=== PATIENT | female | born 1940 | race Caucasian/White ===

== ENCOUNTER 2017-11-26 09:09 | Emergency (ER) | payer MEDICARE, SELFPAY ==
[2017-11-26 09:11] VITALS: BP 200/111; PULSE 57; RESP 17; TEMP 36.3; O2SAT 96; BMI 31.7
--- NOTE | 2017-11-26 09:23 | EKG12_ITS ---
Test Reason : HYPERTENSION Blood Pressure : / mmHG Vent. Rate : 054 BPM Atrial Rate : 054 BPM P-R Int : 162 ms QRS Dur : 092 ms QT Int : 448 ms P-R-T Axes : 021 -24 018 degrees QTc Int : 424 ms Sinus bradycardia Leftward axis Voltage criteria for left ventricular hypertrophy Poor R wave progression Abnormal ECG Confirmed by BRIAN SOFIA, CLOTILDE ([id number]), publications editor ANTONINO KELLY ([id number]) on 11/29/2017 2:09:02 PM Referred By: ANISA Confirmed By:CLOTILDE TORRES MD
--- NOTE | 2017-11-26 09:26 | ED.DCSUM_ITS ---
- ER Visit Summary Date of Service: 11/26/17 Chief Complaint: [High blood pressure] History of Present Illness: The patient is a 77 F [presents the emergency department with high blood pressure. It started yesterday afternoon. She feels a mild pressure in the front of her head. No dizziness no vision changes no speech changes no numbness or tingling no weakness. No chest pain or shortness of breath. She has been urinating normally. She does have a history of high blood pressure and is on Coreg and lisinopril HCTZ. She is taking both of these medications regularly and did take them this morning. Hypertension is her only medical problem. She has been under increased stress in the last week as her is being placed in a care home. She has had problems controlling her blood pressure in the past and was in the emergency department a few years ago with a nosebleed secondary to her hypertension.] Physical Examination: [] Blood pressure 200/111 heart rate 57 respiratory rate 17 pulse ox 96% WN WD NAD PERRL EOMI MMM NECK supple and nontender, no masses RRR no murmur rub or gallop, no peripheral edema, symmetric radial pulses CTAB no respiratory distress ABDOMEN is soft and nontender, normal bowel sounds, no distension, no rebound or guarding SKIN is warm and dry no rashes Alert and Oriented x3, CN II-XII in tact, no motor or sensory deficits, gait normal NIH 0 No lymphadenopathy Test Results: [] Emergency Department Course and Treatment: [EKG was ordered and screening blood work was ordered as well. Patient was given 10 mg of IV hydralazine. EKG is sinus bradycardia at a rate of 54 she does have LVH. There are no acute ischemic changes. Chemistry was unremarkable. Patient was given 10 mg of hydralazine and her blood pressure did improve down to 157/71. Her headache did not improve and for that reason she was given Tylenol as well as a CT of the head was performed it was unremarkable. After the CT of the head was performed she started complaining of urinary frequency since she has been in the emergency department. Urinalysis was sent and she had 10-25 RBCs but no signs of infection. Urine culture was sent. I did attempt to contact the patient's primary doctor but was unable to. At this point I will slightly increase her blood pressure medicine to lisinopril 20 HCTZ 25 and she will follow-up closely with her primary physician. She was also told that she should follow-up for her hematuria. She was given precautions for which to return.] Treatment Plan: [] Disposition: [Discharge] Impression: [. Hematuria 2. Uncontrolled hypertension] This note was generated with [employer] dictation software. It may contain incorrect words, spelling, and punctuation that were not noted in review of the chart prior to signing ED Disposition - Plan for ED Patient: Chief Complaint: Hypertension Referrals: Alex Burger MD [Primary Care Provider] -
[2017-11-26 10:06] LABS: Anion Gap 6 (5-15); BUN 22 mg/dL (7-18); BUN/Creat Ratio 35.1 RATIO (10-20); Chloride 111 mmol/L (98-107); Creatinine, Serum 0.63 mg/dL (0.55-1.02); EST Glomerular Filtration Rate 99 mL/min (>60); Est Glom Filt Rate - Afr Amer 119 mL/min (>60); Estimated Creatinine Clearance 38.44 ml/min; Glucose 100 mg/dL (74-106); Potassium 4.4 mmol/L (3.5-5.1); Sodium Level 142 mmol/L (136-145)
--- NOTE | 2017-11-26 10:34 | CT_ITS ---
STUDY: CT BRAIN WITHOUT CONTRAST REASON FOR EXAM: Female, 77 years old. Uncontrolled blood pressure today. Headache RADIATION DOSAGE (If Supplied By Facility): CTDIvol = ( 44.99 ) mGy, DLP = ( 745.49 ) mGycm TECHNIQUE: Transaxial CT imaging of the brain was performed without administration of intravenous contrast material. Multiplanar coronal and sagittal images were reformatted. Individualized dose optimization techniques were used for this CT. COMPARISON: None. FINDINGS: Normal soft tissue structures. Normal calvarium. Normal size ventricles and extra-axial spaces for the patient's age. Normal white matter tracts of the cerebral hemispheres. Normal basal ganglia and thalami. Normal brainstem. Normal cerebellum. There is no intracranial hemorrhage. There are no findings of an acute ischemic infarction. Normal visualized paranasal sinuses. CT/Brain/Head without Contrast IMPRESSION: There is no acute intracranial pathology. There is no significant interval change. Electronically Signed: Soo Gallardo MD at 11:25 EST , Service support ,
[2017-11-26] MEDS: Acetaminophen 500 MG Tablet 1000 MG PO (10:41)
[2017-11-26 10:42] VITALS: BP 162/69; PULSE 61; RESP 14; O2SAT 96
[2017-11-26 11:31] VITALS: BP 154/77; PULSE 62; RESP 16; O2SAT 96
[2017-11-26 11:56] LABS: Bacteria 0 SEEN /hpf (None Seen); Mucous, Urine 0 SEEN /hpf (<or=2+)
[2017-11-26 11:57] LABS: Color, Urine Yellow (Yellow); Glucose, Dipstick Normal (Normal); Ketone-Dipstick Negative (Negative); Leukocyte Esterase-Dipstick 25 /ul (Negative); Nitrite-Dipstick Negative (Negative); Occult Blood-Urine 250 /ul (Negative); Protein-Dipstick Negative (Negative); Specific Gravity, Urine 1.005 (1.002-1.030); Urine Bilirubin Dipstick Negative (Negative); Urine Clarity Clear (Clear); Urine Urobilinogen Normal (Normal)
[2017-11-26 12:04] LABS: Red Blood Cells-Urine 10-25 SEEN /hpf (0-5); Squamous Epithelial Cells - UA 0-5 SEEN /hpf (5-10); White Blood Cells 0-5 SEEN /hpf (0-5)
--- NOTE | 2017-11-26 12:28 | ED.DEP ---
ED Disposition - Plan for ED Patient: Chief Complaint: Hypertension Instructions: ED Hypertension Conf Out Of Control, ED Hematuria Prescriptions: Lisinopril/Hydrochlorothiazide [Zestoretic 20/25 Tablet] 1 tablet PO DAILY #30 tablet Referrals: Alex Burger MD [Primary Care Provider] - 2 Days
[2017-11-26 12:40] VITALS: BP 119/59; PULSE 55; RESP 14; O2SAT 95
== END 2017-11-26 12:41 | disposition home or self-care (01) ==
PROVIDERS: Emergency Provider Emergency Medicine; Family Provider Family Medicine; PCP Family Medicine
DX: I10 Essential (primary) hypertension (principal); R31.9 Hematuria, unspecified; R60.9 Edema, unspecified; R00.1 Bradycardia, unspecified; Z79.899 Other long term (current) drug therapy
CPT/HCPCS: 70450; 80048; 81001; 87086; 87088; 87186; 93005; 96374; 99285; A4216

== ENCOUNTER 2017-12-04 00:22 | Emergency (ER) | payer MEDICARE, SELFPAY ==
[2017-12-04 00:23] VITALS: BP 155/92; PULSE 67; RESP 16; TEMP 36.7; O2SAT 96; BMI 31.7
--- NOTE | 2017-12-04 00:34 | EKG12_ITS ---
Test Reason : HTN Blood Pressure : / mmHG Vent. Rate : 059 BPM Atrial Rate : 059 BPM P-R Int : 164 ms QRS Dur : 088 ms QT Int : 448 ms P-R-T Axes : 027 -21 020 degrees QTc Int : 443 ms Sinus bradycardia Voltage criteria for left ventricular hypertrophy Abnormal ECG Confirmed by CARLTON SOFIA, ANDRIA ([id number]), editor department ANTONINO KELLY ([id number]) on 12/06/2017 1:50:38 PM Referred By: BHASKAR Confirmed By:ANDRIA VINCENT MD
--- NOTE | 2017-12-04 00:36 | ED.VISSUMM ---
- ER Visit Summary Date of Service: 12/04/17 Chief Complaint: Elevated blood pressure History of Present Illness: The patient is a 77 F since to the emergency department with elevated blood pressure. Patient has a long-standing history of hypertension. She was actually seen here about 8 days ago for the same complaints. The patient states that she is under a significant amount of stress at home. She states that she is currently trying to place her in an Alzheimer's unit. She states she took her blood pressure before bed and it was 147 systolic which is higher than her normal. She states she woke later and was having some palpitations so she repeated it. It was 177 systolic. She denies headache, vision change, chest pain, shortness of breath, or other systemic symptoms. The patient is very concerned about her blood pressure being slightly elevated. She denies any recent change in medication. She denies any other systemic complaints. Physical Examination: Vital signs reviewed General: Well-nourished, well-developed Head: Normocephalic, atraumatic Eyes: Pupils equal and reactive, extraocular muscles intact Neck, supple, no lymphadenopathy Heart: Regular rate and rhythm Respiratory: No distress, clear bilaterally Abdomen: Soft, nontender, nondistended, no peritoneal signs Back: Nontender Extremities: Nontender, no edema, no cords Skin: Normal color no rash Neuro: Alert and oriented, no focal or lateralizing deficits Test Results: EKG demonstrates sinus bradycardia without acute ischemia. Screening labs are unremarkable. Emergency Department Course and Treatment: Patient is very concerned about her blood pressure. She has no evidence of hypertensive emergency, press syndrome, or other dangerous process. She did have a head CT about a week ago. I did not repeat this given her normal neurologic examination. The patient was given 5 mg of hydralazine. Repeat blood pressure was within normal limits. Her labs are unremarkable. She is symptom-free. At this time I do for the patient is safe for discharge. I did safety counselor her to call her PCP tomorrow to discuss medication regimen. Patient will be discharged home. Treatment Plan: [] Disposition: Discharge Impression: 1. Hypertension This note was generated with [employer]ulse [employer] software. It may contain incorrect words, spelling, and punctuation that were not noted in review of the chart prior to signing ED Disposition - Plan for ED Patient: Disposition: Home or Assisted Living Chief Complaint: Hypertension Instructions: ED HTN Established Referrals: Alex Burger MD [Primary Care Provider] -
[2017-12-04 01:21] LABS: Absolute Lymphocyte Count 1.88 X10^3/ul (0.83-4.51); Absolute Neutrophil Count 3.8 X10^3/uL (2.0-7.7); Basophil# 0.04 X10^3/uL; Basophil% 0.6 % (0-1); Eosinophil# 0.18 X10^3/uL; Eosinophils% 2.8 % (0-5); Hematocrit 42.4 % (37-47); Hemoglobin 14.3 g/dl (12.0-15.0); Lymphocyte # 1.88 X10^3/ul (4.0); Lymphocyte % 28.8 % (19-41); Mean Corp Hgb Conc 33.7 g/gl (32-36); Mean Corpuscular Hgb 31.8 pg (27.0-32.0); Mean Corpuscular Volume 94.2 fL (81-99); Mean Platelet Vol. 10.1 fl (6.2-12.0); Monocyte# 0.62 X10^3/uL; Monocyte% 9.5 % (0-10); Neutrophil # 3.79 X10^3/uL (2.7-7.7); Neutrophil % 58.1 % (47-70); Platelet Count 238 K/mm3 (150-450); RBC Distribution Width CV 13.1 % (11.6-14.6); RBC Distribution Width SD 44.1 fl (35.1-43.9); White Blood Count 6.5 K/mm3 (4.4-11.0)
[2017-12-04 01:22] LABS: POSITIVE COUNT NO; POSITIVE DIFFERENTIAL NO; POSITIVE MORPHOLOGY NO
[2017-12-04 01:35] LABS: Anion Gap 8 (5-15); BUN 35 mg/dL (7-18); BUN/Creat Ratio 48.5 RATIO (10-20); Chloride 109 mmol/L (98-107); Creatinine, Serum 0.72 mg/dL (0.55-1.02); EST Glomerular Filtration Rate 84 mL/min (>60); Est Glom Filt Rate - Afr Amer 101 mL/min (>60); Estimated Creatinine Clearance 38.44 ml/min; Glucose 113 mg/dL (74-106); Potassium 3.6 mmol/L (3.5-5.1); Sodium Level 144 mmol/L (136-145)
[2017-12-04 01:51] VITALS: BP 117/63; PULSE 52; RESP 14; O2SAT 95
[2017-12-04 02:00] VITALS: BP 113/61
== END 2017-12-04 02:00 | disposition home or self-care (01) ==
PROVIDERS: Emergency Provider Emergency Medicine; Family Provider Family Medicine; PCP Family Medicine
DX: I10 Essential (primary) hypertension (principal); R00.1 Bradycardia, unspecified; R00.2 Palpitations; Z79.899 Other long term (current) drug therapy
CPT/HCPCS: 80048; 85025; 93005; 96374; 99282; A4216

== ENCOUNTER → 2017-12-11 10:31 | Outpatient (CLI) | payer MEDICARE, SELFPAY | PROVIDERS: Family Provider Family Medicine; PCP Family Medicine; Visit Provider Family Medicine | DX: R35.0 Frequency of micturition (principal) | CPT/HCPCS: 87086; 87088; 87186 ==

== ENCOUNTER 2018-05-29 09:02 | Emergency (ER) | payer MEDICARE, SELFPAY ==
[2018-05-29 09:03] VITALS: BP 135/80; PULSE 55; RESP 18; TEMP 37; O2SAT 94; BMI 28.3
--- NOTE | 2018-05-29 09:27 | ED.VISSUMM ---
- ER Visit Summary Date of Service: 05/29/18 Chief Complaint: Acute atraumatic left lower back pain with radiculopathy History of Present Illness: The patient is a 78 F who presents because of acute left lower back pain with radiation to the popliteal fossa. She states she has history of sciatica. She has never had an MRI. She denies bowel or bladder dysfunction. She denies saddle paresthesia or anesthesia. She denies foot drop. She has noted weakness in her thigh muscles. She denies fever, chills night sweats. She does report unintentional weight loss. She is had recent loss. . She does report frequency, polyuria and question nocturia. There is family history diabetes. She denies dysuria, hematuria or urgency. Please read written note for complete detail Physical Examination: Vital signs are essentially unremarkable. Blood pressure slightly elevated 135/80. Head is atraumatic normocephalic. Pupils are equal round reactive. Extraocular muscles are intact. TMs are pearly white with landmarks noted. Nares patent with no drainage. Posterior pharynx without erythema or exudate. Uvula is midline. There is no dysphonia or dysphasia. Trachea is midline. There is no stridor with auscultation of the neck. Heart is regular without murmur, gallop or rub. S1 and S2 are normal. Lungs are clear to auscultation with good movement of air bilaterally. Abdomen is soft and nontender. There is no guarding or peritoneal findings. There is no palpable pulsatile mass. There is no abdominal bruit. Tyler sign is negative. Negative Rovsing sign. There is no evidence of inguinal or umbilical hernia. There is no reproducible low back pain. Straight leg test on left is equivocal. Positive femoral stretch test on left. Patellar reflex on right is 2++ minus on left. Ankle reflexes 2+ both right and left. EHL is intact. Crossover test is negative. Test Results: Multilevel degenerative changes, as described above. L1/2: There is a diffuse bulge slightly larger on the left. There is moderate central canal stenosis and [id number] left and mild right neuroforaminal stenosis. L2/3: There is a diffuse bulge slightly larger on the right. There is moderate central canal stenosis and moderate left worse than right neuroforaminal stenosis. L3/4: There is a diffuse bulge. There is moderate central canal stenosis and jnim-[id number] bilateral neuroforaminal stenosis. L4/5: There is a diffuse bulge. There is moderate central canal stenosis and bwpq-aw-[id number] left and mild right neuroforaminal stenosis. L5/S1: There is a diffuse bulge. There is mild right worse than left neuroforaminal stenosis. There is a 2.3 cm infrarenal aortic aneurysm. Emergency Department Course and Treatment: MRI was ordered to evaluate the new onset weakness of the quadricep muscle, diminished patellar reflex noted on left. Furthermore concern for L3/L4 herniated disc and she has a positive femoral stretch test as well. She was medicated with Ativan because she reports being claustrophobic. She is not severely claustrophobic. She also received formal grams of Zofran 4 mg of morphine for her back pain. Treatment Plan: UA was negative. Patient was referred to Dr. Natasha Li, spine surgeon Disposition: Discharged home with pain medication Impression: 1. Left low back pain with sciatica 2. Moderate spinal stenosis 3. Disc bulge multilevel and foramen narrowing multiple levels This note was generated with [employer] dictation software. It may contain incorrect words, spelling, and punctuation that were not noted in review of the chart prior to signing ED Disposition - Plan for ED Patient: Disposition: Home or Assisted Living Chief Complaint: Back Instructions: ED Neck Back Pain General, ED Sciatica Prescriptions: Hydrocodone Bitart/Apap 5-325 [[place] 5MG-325MG] 1 tablet PO Q6H PRN PRN 5 Days #20 tablet PRN Reason: Pain Referrals: Alex Burger MD [Primary Care Provider] - 1 Week if not improving Natasha Li MD [STAFF PHYSICIAN] - 1 Week Additional Instructions: Your prescription was electronically transmitted to [facility] pharmacy; your preferred pharmacy.
[2018-05-29] MEDS: LORazepam 2 MG/ML Syringe 1 MG IV (09:33)
[2018-05-29] MEDS: Morphine 4 MG/ML Syringe IV (09:34)
[2018-05-29] MEDS: Ondansetron 4 MG/2 ML Vial IV (09:34)
[2018-05-29 09:35] LABS: Bedside Glucose 118 mg/dL (70-110)
[2018-05-29 11:44] LABS: Bacteria 0 SEEN /hpf (None Seen); Mucous, Urine 0 SEEN /hpf (<or=2+); Red Blood Cells-Urine 0 SEEN /hpf (0-5)
[2018-05-29 11:46] LABS: Color, Urine Yellow (Yellow); Glucose, Dipstick Normal (Normal); Ketone-Dipstick Negative (Negative); Leukocyte Esterase-Dipstick 100 /ul (Negative); Nitrite-Dipstick Negative (Negative); Occult Blood-Urine 25 /ul (Negative); Protein-Dipstick 15 mg/dl (Negative); Urine Bilirubin Dipstick Negative (Negative); Urine Clarity Clear (Clear); Urine Urobilinogen Normal (Normal)
[2018-05-29 11:53] LABS: Squamous Epithelial Cells - UA 0-5 SEEN /hpf (5-10); White Blood Cells 0-5 SEEN /hpf (0-5)
[2018-05-29 12:21] VITALS: BP 117/85; RESP 18
== END 2018-05-29 12:22 | disposition home or self-care (01) ==
PROVIDERS: Emergency Provider Emergency Medicine; Family Provider Family Medicine; PCP Family Medicine
DX: M54.42 Lumbago with sciatica, left side (principal); M48.061 Spinal stenosis, lumbar region without neurogenic claudication; I72.2 Aneurysm of renal artery; I10 Essential (primary) hypertension; R35.0 Frequency of micturition; R35.8 Other polyuria; R63.4 Abnormal weight loss; F40.240 Claustrophobia; Z79.899 Other long term (current) drug therapy
CPT/HCPCS: 72148; 81001; 82962; 96374; 96375; 99283; A4216; J2405

== ENCOUNTER 2018-06-16 06:14 | Emergency (ER) | payer MEDICARE, SELFPAY ==
[2018-06-16 06:15] VITALS: BP 135/72; PULSE 66; RESP 18; TEMP 36.9; O2SAT 95; BMI 29.7
[2018-06-16 07:05] LABS: Mucous, Urine 0 SEEN /hpf (<or=2+); Red Blood Cells-Urine 0 SEEN /hpf (0-5); Squamous Epithelial Cells - UA 0 SEEN /hpf (5-10)
[2018-06-16 07:09] LABS: Absolute Neutrophil Count 7.1 X10^3/uL (2.0-7.7); Basophil# 0.03 X10^3/uL; Basophil% 0.3 % (0-1); Eosinophils% 1.1 % (0-5); Hematocrit 43.3 % (37-47); Hemoglobin 14.7 g/dl (12.0-15.0); Lymphocyte % 13.5 % (19-41); Mean Corp Hgb Conc 33.9 g/gl (32-36); Mean Corpuscular Hgb 31.4 pg (27.0-32.0); Mean Corpuscular Volume 92.5 fL (81-99); Mean Platelet Vol. 9.6 fl (6.2-12.0); Monocyte# 0.46 X10^3/uL; Monocyte% 5.2 % (0-10); Neutrophil # 7.07 X10^3/uL (2.7-7.7); Neutrophil % 79.8 % (47-70); Platelet Count 260 K/mm3 (150-450); RBC Distribution Width CV 13.2 % (11.6-14.6); Red Blood Count 4.68 M/mm3 (4.2-5.4); White Blood Count 8.9 K/mm3 (4.4-11.0)
[2018-06-16 07:10] LABS: POSITIVE COUNT NO; POSITIVE DIFFERENTIAL NO; POSITIVE MORPHOLOGY NO
[2018-06-16 07:13] LABS: Color, Urine Yellow (Yellow); Glucose, Dipstick Normal (Normal); Ketone-Dipstick Negative (Negative); Protein-Dipstick 15 mg/dl (Negative); Urine Bilirubin Dipstick Negative (Negative); Urine Clarity Clear (Clear); Urine Urobilinogen Normal (Normal)
[2018-06-16 07:14] LABS: Leukocyte Esterase-Dipstick 100 /ul (Negative); Nitrite-Dipstick POSITIVE (Negative); Occult Blood-Urine 150 /ul (Negative)
[2018-06-16 07:15] LABS: Bacteria 2+ /hpf (None Seen); White Blood Cells 0-5 SEEN /hpf (0-5)
[2018-06-16 07:24] LABS: Anion Gap 7 (5-15); BUN 30 mg/dL (7-18); BUN/Creat Ratio 40.7 RATIO (10-20); Chloride 109 mmol/L (98-107); Creatinine, Serum 0.74 mg/dL (0.55-1.02); EST Glomerular Filtration Rate 81 mL/min (>60); Est Glom Filt Rate - Afr Amer 99 mL/min (>60); Estimated Creatinine Clearance 37.85 ml/min; Glucose 120 mg/dL (74-106); Potassium 3.8 mmol/L (3.5-5.1); Sodium Level 143 mmol/L (136-145)
--- NOTE | 2018-06-16 07:54 | ED.VISSUMM ---
- ER Visit Summary Date of Service: 06/16/18 Chief Complaint: Abdominal pain History of Present Illness: The patient is a 78 F presenting with abdominal pain. She states it started last night. Pain is gradual in onset. It is mostly in the left lower quadrant. She is currently on Percocet for history of back pain. She has history of previous constipation. History of previous small bowel obstruction. She has had an appendectomy, cholecystectomy. She denies fever. Denies nausea or vomiting. Denies urinary complaints. Physical Examination: Vitals are stable. Patient is afebrile. Alert no acute distress. HEENT exam is unremarkable. Neck is supple. Lungs are clear and equal bilaterally. Heart is regular rate and rhythm. Abdomen is soft left lower quadrant tenderness, no rebound or guarding Extremities are unremarkable. Skin is warm and dry. Remainder of exam is unremarkable. Emergency Department Course and Treatment: CBC, chemistries unremarkable. CT abdomen and pelvis will be obtained and checked out to daytime physician. Disposition: Pending CT results Impression: Abdominal pain This note was generated with [employer] dictation software. It may contain incorrect words, spelling, and punctuation that were not noted in review of the chart prior to signing ED Disposition - Plan for ED Patient: Chief Complaint: Abd Pain Referrals: Alex Burger MD [Primary Care Provider] -
[2018-06-16 08:29] VITALS: BP 171/87; PULSE 69; RESP 18; O2SAT 96
--- NOTE | 2018-06-16 10:00 | ED.DEP ---
ED Disposition - Plan for ED Patient: Chief Complaint: Abd Pain Instructions: ED Abdominal Pain Unkn Cause Referrals: Alex Burger MD [Primary Care Provider] -
[2018-06-16 10:09] VITALS: BP 142/60; PULSE 64; RESP 12; O2SAT 95
== END 2018-06-16 10:09 | disposition home or self-care (01) ==
PROVIDERS: Emergency Provider Emergency Medicine; Family Provider Family Medicine; PCP Family Medicine
DX: R10.32 Left lower quadrant pain (principal); M54.9 Dorsalgia, unspecified; I10 Essential (primary) hypertension; Z79.899 Other long term (current) drug therapy; Z90.49 Acquired absence of other specified parts of digestive tract
CPT/HCPCS: 74177; 80048; 81001; 85025; 87077; 87086; 87088; 87186; 96360; 96361; 99282; J7040; Q9967; A4216

== ENCOUNTER 2018-07-03 15:00 | Outpatient (RCR) | payer MEDICARE, SELFPAY ==
--- NOTE | 2018-06-14 12:08 | HP.PTEVAL_ITS ---
Patient's Visit Information H GUANACO BALDERAS is a 78 year old F referred to Physical Therapy by Alex Burger with a diagnosis of LUMABR STENOSIS. Date of Evaluation: 06/14/18 Physical Therapist: Lukas Caceres PT, - Visit Plan Frequency: 2x /Week Duration: 4 Weeks Plan: modalities pain releive ,progression DLS ,postural ex's - Subjective Subjective: This 78 y/o female presenst to physical therapy with lumbar stenosis. Patient has had lumbar pain with radicular symtoms for about 30 years sith symptoms gradually worsening past 2 1/2 weeks. Patient symtrically lumbar radiates buttuck hams calf foot. Seen Dr baltazar MRI showed mod stenosis canal and foraminal. Symptoms standing 10 mins ,walking ,bending,lifting.Symptoms better with sitting. Pain affects sleeping. Couging/neezing-. Bowel/bladder good. Dr Santos rcommended pain management and DR Ramirez for spine consult.Patient pain affects ADL'S ,housework chores and QOL. SOCAIL: . VOCATION: RETIRED - Pain Bilateral Back Pain Intensity (Out of 10): 5 Pain Intensity Range: 10 Left Lower Extremity Pain Intensity (Out of 10): 5 Pain Intensity Range: 10 - Objective POSTURE: mild foward posture hips/knees flexed. SYYMTRIES : pelvis assymtrical. GAIT: mild foward posture antalgic gait left side reciprocal pattern. NEURO: denies parathesia/tingling,ocassionally left foot,reflexes L3-4 ,L4-5,L5-S1 1/3. LUMBAR ROM: flexion min loss,extension mod loss,side glides min decrease curve reversal. FLEXABLITTY: hams min - Special Tests L/S Slump test left side: Negative L/S Slump test right side: Negative L/S Left Straight Leg Raise: Negative L/S Right Straight Leg Raise: Negative Lumbar Standing: Flexion - Mechanical Response: No effect Lumbar Standing: Flexion - Symptoms During Testing: Decreases Lumbar Standing: Flexion - Symptoms After Testing: No better Lumbar Standing: Extension - Mechanical Response: No effect Lumbar Standing: Extension - Symptoms During Testing: No effect Lumbar Standing: Extension - Symptoms After Testing: No effect - Goals Goal 1:: Patient to be Independant with HEP. Goal Time Frame: 4-6 Weeks Goal 2:: Patient to be Independant with posture for ADL'S Goal Time Frame: 4-6 Weeks Goal 3:: Patient to decrease lumbar pain with radicular symptoms with walking and standing Goal Time Frame: 4-6 Weeks Goal 4:: Patient be able to perform ADL'S and housework tasks with min limitations Goal Time Frame: 4-6 Weeks Goal 5:: Patient to improve back owestry by 5 points to improve QOL. Goal Time Frame: 4-6 Weeks - Rehabilitation Potential Physical Therapy Diagnosis: This patient has lumbar stenosis with pain and left radicular symptoms worse with walking ,standing affecting ADL'S and housework tasks ,better with sitting thus benifit from skilled PT Rehabilitation Potential: Good - Anticipated Interventions Patient/Client Instruction: Educate patient on: Condition, Plan of Care, Benefits of Fitness Program For the Purpose of:: To decrease pain, To increase ROM, To improve muscle performance and motor function, To improve ability to perform ADL's, To increase tolerance to activity/condition/position, To improve ability of physical actions for home/community/work/leisure, To improve health of tissue, To decrease soft tissue restriction, To reduce risk of recurrence, To improve ability to perform tasks related to life management Therapeutic Exercise to Include: Strength training, Body mechanics, Postural training, Flexibilty training, Dynamic Lumbar Stabilization Comment: flexion lumbar For the Purpose of:: To decrease pain, To increase ROM, To increase oxygenation perfusion, To increase tolerance to activity/condition/position, To improve ability of physical actions for home/community/work/leisure, To improve health of tissue, To decrease soft tissue restriction, To improve ability to perform tasks related to life management TENS: Yes IF ES: Yes Cryotherapy (ice pack, ice massage): Yes Thermo therapy (hot pack): Yes Ultrasound (thermal/non thermal): Yes For the Purpose of:: To decrease pain, To decrease swelling/inflammation, To increase ROM, To improve nutrient delivery to tissue, To increase oxygenation perfusion, To improve health of tissue, To decrease soft tissue restriction Thank you for the opportunity to evaluate your patient. For Medicare and Medicare HMO plans, please review the plan of care and approve it. It will need to be FAXED BACK to us at [phone] for Medicare purposes. Please let me know if there are questions or concerns regarding this plan of care. Physician Signature: Date:
--- NOTE | 2018-10-26 12:19 | HP.PT.NRP ---
HP - Discharge Summary (1) - Patient Information H GUANACO BALDERAS was seen in my office for initial evaluation on 06/14/18. The following Plan of Care was established for this patient: Initial Frequency: 2x /Week Initial Duration: 4 Weeks - Anticipated Interventions Patient/Client Instruction: Educate patient on: Condition, Plan of Care, Benefits of Fitness Program For the Purpose of:: To decrease pain, To increase ROM, To improve muscle performance and motor function, To improve ability to perform ADL's, To increase tolerance to activity/condition/position, To improve ability of physical actions for home/community/work/leisure, To improve health of tissue, To decrease soft tissue restriction, To reduce risk of recurrence, To improve ability to perform tasks related to life management Therapeutic Exercise to Include: Strength training, Body mechanics, Postural training, Flexibilty training, Dynamic Lumbar Stabilization For the Purpose of:: To decrease pain, To increase ROM, To increase oxygenation perfusion, To increase tolerance to activity/condition/position, To improve ability of physical actions for home/community/work/leisure, To improve health of tissue, To decrease soft tissue restriction, To improve ability to perform tasks related to life management TENS: Yes IF ES: Yes Cryotherapy (ice pack, ice massage): Yes Thermo therapy (hot pack): Yes Ultrasound (thermal/non thermal): Yes For the Purpose of:: To decrease pain, To decrease swelling/inflammation, To increase ROM, To improve nutrient delivery to tissue, To increase oxygenation perfusion, To improve health of tissue, To decrease soft tissue restriction This patient was last seen in our office 07/03/18. Pertinent comments regarding their Physical therapy will appear below: Patient seen for PT for lumbar stenosis focusing on DLS ,posture and strengthening. Patient doing with HEP thus is d/c. At this point I will be discontinuing this patient from physical therapy. I would be happy to see this patient again in the future if found appropriate by the physician. Thank you! Luksa Caceres, PT, Cert MDT, OCS
== END 2018-07-03 19:00 | disposition home or self-care (01) ==
LOC: PT 15:00
PROVIDERS: Family Provider Family Medicine; PCP Family Medicine; Visit Provider Family Medicine
DX: M48.061 Spinal stenosis, lumbar region without neurogenic claudication (principal)
CPT/HCPCS: 97110; 97162

== ENCOUNTER → 2019-07-18 08:14 | Outpatient (CLI) | payer MEDICARE, SELFPAY ==
[2019-07-18 11:24] LABS: Anion Gap 6 (5-15); BUN 32 mg/dL (7-18); Chloride 113 mmol/L (98-107); Cholesterol 171 mg/dL (200); Creatinine, Serum 0.91 mg/dL (0.55-1.02); EST Glomerular Filtration Rate 63 mL/min (>60); Est Glom Filt Rate - Afr Amer 77 mL/min (>60); Glucose 91 mg/dL (74-106); High Density Lipoprotein 51 mg/dL; Potassium 3.8 mmol/L (3.5-5.1); Sodium Level 144 mmol/L (136-145); Triglycerides 113 mg/dL; Very Low Density Lipoprotein 23 mg/dL (5-40)
== END ==
PROVIDERS: Family Provider Family Medicine; PCP Family Medicine; Referring Provider Family Medicine; Visit Provider Family Medicine
DX: I10 Essential (primary) hypertension (principal); E78.5 Hyperlipidemia, unspecified
CPT/HCPCS: 36415; 80048; 80061

== ENCOUNTER → 2020-10-26 13:12 | Outpatient (CLI) | payer MEDICARE, SELFPAY ==
--- NOTE | 2020-10-26 13:17 | RAD_ITS ---
STUDY: X-RAY - THORACIC SPINE REASON FOR EXAM: Female, 80 years old. Lower back pain. TECHNIQUE: 3 view(s) of the thoracic spine were obtained. COMPARISON: None. FINDINGS: Normal kyphosis of the thoracic spine. There is no substantial scoliosis. There is demineralization of the thoracic spine with endplate spondylosis. There is multilevel disc space narrowing of the thoracic spine. There is no evidence of acute fracture or loss of vertebral axial height. The soft tissue structures are unremarkable. RAD/Thoracic Spine 2 Views IMPRESSION: Degenerative changes of the thoracic spine without acute fracture or subluxation. Electronically Signed: Casey Chambers DO at 19:24 EST Tel [phone], Service support ,
--- NOTE | 2020-10-26 13:17 | RAD_ITS ---
STUDY: X-RAY - LUMBAR SPINE REASON FOR EXAM: Female, 80 years old. Lower back pain. TECHNIQUE: 3 view(s) of the lumbar spine were obtained. COMPARISON: CT of the abdomen and pelvis, 06/16/2018. FINDINGS: Normal lumbar lordosis. There is no substantial scoliosis. There is a normal alignment of the vertebrae. There is multilevel endplate spondylosis of the lumbar vertebrae. There is multi-level degenerative disc disease with multi-level disc space narrowing. The soft tissue structures are unremarkable. RAD/Lumbar Spine 2 or 3 Views IMPRESSION: Stable degenerative changes of the lumbar spine. Electronically Signed: Casey Chambers DO at 17:00 EST Tel [phone], Service support ,
== END ==
PROVIDERS: PCP Family Medicine; Referring Provider Anesthesiology Pain Medicine; Visit Provider Anesthesiology Pain Medicine
DX: M54.9 Dorsalgia, unspecified (principal)
CPT/HCPCS: 72070; 72100

== ENCOUNTER 2021-08-06 19:35 | Emergency (ER) | payer MEDICARE, SELFPAY ==
[2021-08-06 19:36] VITALS: BP 102/55; PULSE 60; RESP 18; TEMP 36.8; O2SAT 95; BMI 31.6
--- NOTE | 2021-08-06 20:24 | RAD_ITS ---
STUDY: X-RAY CHEST REASON FOR EXAM: Female, 81 years old. Syncope. Syncopal episode and loss of consciousness for 2 minutes. Heart rate and 40 bpm on arrival to ER. Dizziness and nausea. TECHNIQUE: Single AP portable view of the chest. COMPARISON: None. FINDINGS: The lungs are clear and expanded. There is no demonstrated pleural abnormality. Normal size heart. Normal mediastinum and kathi. Normal visualized pulmonary arteries. Normal visualized aortic arch and descending thoracic aorta. There are diffuse degenerative changes of the visualized thoracic spine. Normal visualized ribs, clavicles, and shoulders. There is no demonstrated abnormality of the visualized soft tissue structures of the upper abdomen. RAD/Chest 1 View (Portable) IMPRESSION: Degenerative changes, as described above. No demonstrated acute cardiopulmonary process. Electronically Signed: Casey Chambers DO at 21:16 EDT Tel [phone], Service support ,
--- NOTE | 2021-08-06 20:24 | EKG12_ITS ---
Test Reason : SONI Blood Pressure : / mmHG Vent. Rate : 056 BPM Atrial Rate : 056 BPM P-R Int : 170 ms QRS Dur : 096 ms QT Int : 456 ms P-R-T Axes : 035 -14 016 degrees QTc Int : 440 ms Sinus bradycardia Voltage criteria for left ventricular hypertrophy Abnormal ECG Confirmed by BRIAN SOFIA, CLOTILDE ([id number]), editorial project manager JOSELO SANFORD ([id number]) on 08/10/2021 9:20:56 AM Referred By: CIERRA Confirmed By:CLOTILDE TORRES MD
[2021-08-06 20:27] VITALS: BP 102/61; BP 115/53; BP 135/66; PULSE 58; PULSE 60; PULSE 63
[2021-08-06 20:42] LABS: Absolute Lymphocyte Count 0.86 X10^3/uL (0.83-4.51); Absolute Neutrophil Count 4.8 X10^3/uL (2.0-7.7); Basophil# 0.03 X10^3/uL; Basophil% 0.5 % (0-1); Eosinophil# 0.13 X10^3/uL; Eosinophils% 2.1 % (0-5); Hematocrit 42.7 % (37-47); Hemoglobin 13.6 g/dL (12.0-15.0); Lymphocyte # 0.86 X10^3/ul (0.83-4.51); Lymphocyte % 13.6 % (19-41); Mean Corp Hgb Conc 31.9 g/dL (32-36); Mean Corpuscular Hgb 30.2 pg (27.0-32.0); Mean Corpuscular Volume 94.7 fL (81-99); Mean Platelet Vol. 9.8 fl (6.2-12.0); Monocyte# 0.47 X10^3/uL; Monocyte% 7.4 % (0-10); NRBC Flagged by Analyzer 0 % (0-5); Neutrophil # 4.81 X10^3/uL (2.7-7.7); Neutrophil % 75.9 % (47-70); Platelet Count 237 K/mm3 (150-450); RBC Distribution Width SD 45.1 fl (35.1-43.9); Red Blood Count 4.51 M/mm3 (4.2-5.4); White Blood Count 6.3 K/mm3 (4.4-11.0)
[2021-08-06 20:59] LABS: Anion Gap 8 (5-15); BUN 29 mg/dL (7-18); BUN/Creat Ratio 28.2 RATIO (10-20); Calcium,Total 9.2 mg/dL (8.5-10.1); Chloride 107 mmol/L (98-107); Creatinine, Serum 1.03 mg/dL (0.55-1.02); EST Glomerular Filtration Rate 55 mL/min (>60); Est Glom Filt Rate - Afr Amer 66 mL/min (>60); Estimated Creatinine Clearance 35.03 ml/min; Glucose 141 mg/dL (74-106); Magnesium 1.9 mg/dL (1.6-2.6); Potassium 3.7 mmol/L (3.5-5.1); Sodium Level 142 mmol/L (136-145); Troponin-I HS 6 pg/mL (3.0-54.0)
[2021-08-06] MEDS: 0.9% Normal Saline 1,000 ML 999 ML IV (21:00)
[2021-08-06 21:14] VITALS: BP 120/60; PULSE 59; RESP 15; O2SAT 96
[2021-08-06 22:33] VITALS: BP 127/53; PULSE 58
--- NOTE | 2021-08-06 22:44 | EDS_ITS ---
HPI History of Present Illness Chief Complaint: Syncope Narrative Narrative: Patient is a 81-year-old female with hypertension who states she was sitting in a chair with family this evening. She states she began to feel weird and then had a brief episode of syncope. Patient states that she awoke spontaneously and knew who she was and where she was at and there was no reported seizure activity. She states she feels fine at this time but with the syncopal event was sent in for evaluation. [facility] Medical History High cholesterol HTN (hypertension) Home Medications carvedilol 12.5 mg PO BID 04/11/17 [History Last Taken 05/29/18] lisinopril-hydrochlorothiazide [Zestoretic 20-12.5 mg Tablet] 1 ea PO DAILY 04/11/17 [History Last Taken 05/29/18] rosuvastatin [Crestor] 5 mg PO QHS 11/26/17 [History Last Taken 05/28/18] zolpidem 5 mg PO QHS PRN PRN 05/29/18 [History Last Taken 05/28/18] oxybutynin chloride 5 mg PO DAILY 08/06/21 [History Last Taken Unknown] Allergy/AdvReac Type Severity Reaction Status Date / Time No Known Allergies Allergy Verified 08/06/21 19:38 Social History Smoking Status: Never smoker ROS ROS ED Constitutional Constitutional ED: Denies chills or fever(s) ENT ENT ED: Denies sore throat Cardiovascular Cardiovascular: Reports other Details: Positive syncope ; Denies chest pain Respiratory/Chest Respiratory/Chest: Denies cough or dyspnea Gastrointestinal Gastrointestinal: Reports nausea; Denies abdominal pain, diarrhea or vomiting Genitourinary Genitourinary ED: Denies dysuria Musculoskeletal Musculoskeletal: Denies myalgias Integumentary Denies rash Neurologic Neurologic: Denies headache(s) Hematologic/Lymphatic Hematologic/Lymphatic: Denies easy bleeding or easy bruising EXAM Physical Exam Const Vital Signs: 08/06/21 19:36 08/06/21 19:40 08/06/21 20:27 Temperature 98.2 F Temperature Source Oral Pulse Rate 60 Pulse Rate [Lying] 58 L Pulse Rate [Sitting] 60 Pulse Rate [Standing] 63 Respiratory Rate 18 Respiratory Effort Normal Non-Labored Respiratory Pattern Normal Blood Pressure 102/55 L Blood Pressure [Lying] 115/53 L Blood Pressure [Sitting] 135/66 H Blood Pressure [Standing] 102/61 Blood Pressure Mean 70 Blood Pressure Mean [Lying] 73 Blood Pressure Mean [Sitting] 89 Blood Pressure Mean [Standing] 74 Pulse Ox 95 Oxygen Delivery Method Room Air 08/06/21 21:14 08/06/21 22:33 Temperature Temperature Source Pulse Rate 59 L 58 L Pulse Rate [Lying] Pulse Rate [Sitting] Pulse Rate [Standing] Respiratory Rate 15 Respiratory Effort Respiratory Pattern Blood Pressure 120/60 127/53 H Blood Pressure [Lying] Blood Pressure [Sitting] Blood Pressure [Standing] Blood Pressure Mean 80 77 Blood Pressure Mean [Lying] Blood Pressure Mean [Sitting] Blood Pressure Mean [Standing] Pulse Ox 96 Oxygen Delivery Method Room Air Positive well nourished and well developed General Appearance ED: well developed HEENT Reports dry mucous membranes HEENT Narrative: No signs of depressed or basilar skull fracture Mouth ED: Yes dry mucous membranes Mouth: dry mucous membranes Eyes PERRL and EOMs intact bilaterally Neck supple Neck Narrative: No bony deformity or step-off of the cervical spine no midline pain with palpation Chest Wall palpation of chest normal Resp normal respiratory effort and clear to auscultation bilaterally Cardio regular rate and regular rhythm Rate: other Other Details: Radial pulses are plus 2 out of 4 bilaterally they are equal and symmetric GI normal to inspection, nondistended, normoactive bowel sounds, non-tender and non-distended Auscultation: normoactive bowel sounds Palpation: soft Back/Spine Back/Spine Narrative: No bony deformity or step-off of the thoracic or lumbar spine Extremity normal to inspection Extremity Narrative: Pelvis is stable there is no shortening or external rotation of either lower extremity Neuro oriented x3 and CN's II-XII intact bilaterally Neuro Narrative: No pronator drift no dysmetria no truncal ataxia Sensorium / Orientation: alert Motor Exam: strength 5/5 throughout Psych mental status grossly normal Skin no rashes or lesions noted MDM MDM MDM Narrative Medical decision making narrative: Patient presented to the ER awake and alert with a normal neurologic exam and no focal findings. Her history of syncope is concerning for most likely cause orthostasis and therefore basic work-up was obtained. Blood work revealed no clinically significant findings and chest x- ray revealed no acute lung pathology. Patient's orthostatic vital signs were positive and she was given 1 L of fluid. Following this she was able to walk to the bathroom without any symptoms indicating that her hydration status is now resolved and I feel she is safe for discharge. Lab Data Attestation: I reviewed the patient's lab results. Labs: Laboratory Results - last 24 hr 08/06/21 08/06/21 19:39 19:39 WBC 6.3 RBC 4.51 Hgb 13.6 Hct 42.7 MCV 94.7 MCH 30.2 MCHC 31.9 L RDW Std Deviation 45.1 H RDW Coeff of Dimitri 13.0 Plt Count 237 MPV 9.8 Immature Gran % (Auto) 0.500 Neut % (Auto) 75.9 H Lymph % (Auto) 13.6 L [place] % (Auto) 7.4 Eos % (Auto) 2.1 Baso % (Auto) 0.5 Absolute Neuts (auto) 4.8 Absolute Lymphs (auto) 0.86 Nucleated RBC % 0 Sodium 142 Potassium 3.7 Chloride 107 Carbon Dioxide 27.0 Anion Gap 8 BUN 29 H Creatinine 1.03 H Estim Creat Clear Calc 35.03 Est GFR (MDRD) Af Amer 66 Est GFR (MDRD) Non-Af 55 L BUN/Creatinine Ratio 28.2 H Glucose 141 H Calcium 9.2 Magnesium 1.9 Troponin I High Sens 6 Radiography Diagnostic Testing: Clinical Impression(s) from Imaging Studies Chest X-Ray 08/06/21 20:24 IMPRESSION: Degenerative changes, as described above. No demonstrated acute cardiopulmonary process. Electronically Signed: Casey Chambers at 21:16 EDT Tel [phone], Service support , Discharge Plan Triage Chief Complaint: Syncope ED Provider: William Parks Dx/Rx/DC Orders Clinical Impression: Syncope due to orthostatic hypotension Instructions: ED Hypotension, Orthostatic, ED Dizziness or Syncope ... Prescriptions: No Action carvedilol 12.5 MG tablet 12.5 mg PO BID RF: 0 lisinopril-hydrochlorothiazide [Zestoretic] 1 EACH tablet 1 ea PO DAILY RF: 0 rosuvastatin [Crestor] 5 MG tablet 5 mg PO QHS RF: 0 zolpidem 5 MG tablet 5 mg PO QHS PRN PRN (Reason: Sleep) RF: 0 oxybutynin chloride 5 mg Tablet Extended Release 24hr 5 mg PO DAILY RF: 0 Primary Care Provider: Alex Burger Referrals: Alex Burger MD [Primary Care Provider] - Disposition Disposition: Home, Self Care Discharge Date/Time: 08/06/21 23:03
== END 2021-08-06 23:03 | disposition home or self-care (01) ==
PROVIDERS: Emergency Provider Emergency Medicine; PCP Family Medicine
DX: I95.1 Orthostatic hypotension (principal); I10 Essential (primary) hypertension; E78.00 Pure hypercholesterolemia, unspecified; Z79.899 Other long term (current) drug therapy
CPT/HCPCS: 71045; 80048; 83735; 84484; 85025; 93005; 96360; 99285; A4216

== ENCOUNTER → 2021-08-25 08:37 | Outpatient (CLI) | payer MEDICARE, SELFPAY ==
[2021-08-25 10:28] LABS: Anion Gap 4 (5-15); BUN 21 mg/dL (7-18); BUN/Creat Ratio 25.4 RATIO (10-20); Calcium,Total 9.1 mg/dL (8.5-10.1); Chloride 109 mmol/L (98-107); Cholesterol 170 mg/dL (200); Creatinine, Serum 0.83 mg/dL (0.55-1.02); EST Glomerular Filtration Rate 71 mL/min (>60); Est Glom Filt Rate - Afr Amer 85 mL/min (>60); Glucose 105 mg/dL (74-106); High Density Lipoprotein 37 mg/dL; Potassium 3.9 mmol/L (3.5-5.1); Sodium Level 140 mmol/L (136-145); Triglycerides 254 mg/dL; Very Low Density Lipoprotein 51 mg/dL (5-40)
== END ==
PROVIDERS: PCP Family Medicine; Referring Provider Family Medicine; Visit Provider Family Medicine
DX: I10 Essential (primary) hypertension (principal)
CPT/HCPCS: 36415; 80048; 80061

== ENCOUNTER → 2022-06-02 | Outpatient (CLI) | payer MEDICARE, SELFPAY | END | disposition home or self-care (01) | PROVIDERS: PCP Family Medicine; Visit Provider Family Medicine | DX: R35.0 Frequency of micturition (principal) | CPT/HCPCS: 87077; 87086; 87088; 87186 ==

== ENCOUNTER → 2022-06-28 | Outpatient (CLI) | payer MEDICARE, SELFPAY | END | disposition home or self-care (01) | PROVIDERS: PCP Family Medicine; Visit Provider Family Medicine | DX: R35.0 Frequency of micturition (principal) | CPT/HCPCS: 87086; 87088; 87186 ==

== ENCOUNTER → 2022-11-01 | Outpatient (CLI) | payer MEDICARE, SELFPAY | END | disposition home or self-care (01) | LOC: LABSPEC 15:16 | PROVIDERS: PCP Family Medicine; Visit Provider Family Medicine | DX: R35.0 Frequency of micturition (principal) | CPT/HCPCS: 87086; 87088 ==

== ENCOUNTER → 2022-11-15 | Outpatient (CLI) | payer MEDICARE, SELFPAY ==
[2022-11-15 10:04] LABS: Absolute Lymphocyte Count 1.44 X10^3/uL (0.83-4.51); Basophil# 0.06 X10^3/uL; Basophil% 1.2 % (0-1); Eosinophil# 0.18 X10^3/uL; Eosinophils% 3.5 % (0-5); Hematocrit 43.7 % (37-47); Hemoglobin 14.3 g/dL (12.0-15.0); Lymphocyte # 1.44 X10^3/ul (0.83-4.51); Mean Corp Hgb Conc 32.7 g/dL (32-36); Mean Corpuscular Volume 94.6 fL (81-99); Mean Platelet Vol. 9.9 fl (6.2-12.0); Monocyte# 0.44 X10^3/uL; Monocyte% 8.6 % (0-10); NRBC Flagged by Analyzer 0 % (0-5); Neutrophil # 3.01 X10^3/uL (2.7-7.7); Neutrophil % 58.5 % (47-70); Platelet Count 273 K/mm3 (150-450); RBC Distribution Width CV 13.2 % (11.6-14.6); RBC Distribution Width SD 45.9 fl (35.1-43.9); Red Blood Count 4.62 M/mm3 (4.2-5.4); White Blood Count 5.1 K/mm3 (4.4-11.0)
[2022-11-15 10:33] LABS: Vitamin D,25 Hydroxy 17.7 ng/mL
[2022-11-15 11:34] LABS: ALB/GLOB Ratio 0.9 RATIO (0.9-2.4); AST(SGOT) 26 U/L (15-37); Alanine Aminotransfer ALT/SGPT 30 U/L (13-56); Albumin, Serum 3.6 g/dL (3.2-5.0); Alkaline Phosphatase 71 U/L (45-117); Anion Gap 8 (5-15); BUN 34 mg/dL (7-18); BUN/Creat Ratio 36.7 RATIO (10-20); Calcium,Total 9.4 mg/dL (8.5-10.1); Chloride 114 mmol/L (98-107); Cholesterol 165 mg/dL (200); Creatinine, Serum 0.93 mg/dL (0.55-1.02); EST Glomerular Filtration Rate 62 mL/min (>60); Est Glom Filt Rate - Afr Amer 75 mL/min (>60); Globulin 4.2 g/dL (2.2-4.2); Glucose 117 mg/dL (74-106); High Density Lipoprotein 43 mg/dL; Potassium 3.8 mmol/L (3.5-5.1); Protein, Total 7.8 g/dL (6.4-8.2); Sodium Level 143 mmol/L (136-145); Triglycerides 188 mg/dL; Very Low Density Lipoprotein 38 mg/dL (5-40)
[2022-11-15 13:28] LABS: Microalbumin,Random Urine 16.5 mg/L (NO RANGE EST.)
== END | disposition home or self-care (01) ==
PROVIDERS: PCP Family Medicine; Referring Provider Family Medicine; Visit Provider Family Medicine
DX: I10 Essential (primary) hypertension (principal); E78.5 Hyperlipidemia, unspecified; E55.9 Vitamin D deficiency, unspecified
CPT/HCPCS: 36415; 80053; 80061; 82043; 82306; 85025

== ENCOUNTER 2023-11-12 09:24 | Emergency (ER) | payer MEDICARE, SELFPAY ==
[2023-11-12 09:24] VITALS: BP 153/85; PULSE 68; RESP 16; TEMP 36.4; O2SAT 100; BMI 30.2
--- NOTE | 2023-11-12 09:44 | EX.ED.DYSGE1 ---
HPI History of Present Illness Chief Complaint: Hypertension Detail of Chief Complaint: Hypertension Informant: patient Narrative Narrative: Patient presents to the emergency department complaint of elevated blood pressure today. Patient states that she was running out of her carvedilol which she normally takes twice today. Patient started only taking 1 a day over the last 3 days because she could not get a hold of her doctor to try to get a refill. She states that normally her blood pressure runs 130/65 when medicated. This morning she had a blood pressure of 160/90. She felt a little lightheaded. She had some mild nausea. She denies vomiting or diarrhea. She denies cough or sore throat or fever. Patient states that she has been under some increased stress this week. [facility] Medical History High cholesterol HTN (hypertension) Home Medications carvedilol 12.5 mg tablet 12.5 mg PO BID 04/11/17 [History Last Taken 05/29/18] lisinopril 20 mg-hydrochlorothiazide 12.5 mg tablet (Zestoretic) 1 ea PO DAILY 04/11/17 [History Last Taken 05/29/18] rosuvastatin 5 mg tablet (Crestor) 5 mg PO QHS 11/26/17 [History Last Taken 05/28/18] zolpidem 5 mg tablet 5 mg PO QHS PRN PRN Sleep 05/29/18 [History Last Taken 05/28/18] oxybutynin chloride 5 mg tablet,extended release 24 hr 5 mg PO DAILY 08/06/21 [History Last Taken Unknown] carvedilol 12.5 mg tablet 12.5 mg PO BID #60 tabs 11/12/23 [Rx Last Taken Unknown] Allergy/AdvReac Type Severity Reaction Status Date / Time No Known Allergies Allergy Verified 11/12/23 09:24 Social History Smoking Status: Never smoker ROS ROS ED ROS Narrative Lightheaded feeling Review of Systems ROS Unobtainable: other Constitutional Constitutional ED: Reports lethargy; Denies chills, fever(s), sweats or weight loss Eyes Eyes: Denies blurry vision, change in vision or diplopia ENT ENT ED: Denies rhinorrhea or sore throat Cardiovascular Cardiovascular: Denies chest pain, orthopnea or racing heartbeat Respiratory/Chest Respiratory/Chest: Denies cough, dyspnea, dyspnea on exertion, orthopnea or sputum Gastrointestinal Gastrointestinal: Reports nausea; Denies abdominal pain, diarrhea or vomiting Genitourinary Genitourinary ED: Denies dysuria, hematuria or urinary frequency Musculoskeletal Musculoskeletal: Denies arthralgias, back pain, myalgias or neck pain Integumentary Denies abscess, Abrasions or rash Neurologic Neurologic: Denies headache(s) or weakness Psychiatric Psychiatric: Denies anxiety, depression or suicidal thoughts Endocrine Endocrinology: Denies polydipsia, polyphagia or polyuria Hematologic/Lymphatic Hematologic/Lymphatic: Denies easy bleeding, easy bruising or lymphadenopathy Allergic/Immunologic Allergic/Immunologic ED: Denies mouth swelling, tongue swelling or urticaria EXAM Physical Exam Const Vital Signs: 11/12/23 09:24 Temperature 97.6 F L Temperature Source Temporal Pulse Rate 68 Respiratory Rate 16 Blood Pressure 153/85 H Blood Pressure Mean 107 Pulse Ox 100 Oxygen Delivery Method Room Air Positive well nourished and well developed General Appearance ED: well developed and NAD HEENT Reports TM's clear and moist mucous membranes normocephalic and atraumatic; Negative for trauma or tenderness Tympanic Membrane ED: Yes TM's clear Eyes PERRL and EOMs intact bilaterally General Eye ED: Negative for pale conjunctiva or scleral icterus Neck no lymphadenopathy, supple and no JVD General: Negative for tenderness Chest Wall inspection of chest normal and palpation of chest normal Chest: Negative for tenderness Resp normal respiratory effort and clear to auscultation bilaterally Effort and Inspection: Negative for respiratory distress or pain with movement Auscultation: Negative for rhonchi, wheezes or diminished lung sounds Cardio regular rate, regular rhythm, S1 normal heart sound, S2 normal heart sound and no murmurs Peripheral Pulses: pulses 2+ throughout GI normal to inspection, nondistended, normoactive bowel sounds, soft to palpation, non-tender, non-distended and no masses Back/Spine no CVA tenderness and no thoracic nor lumbar tenderness Extremity normal to inspection General Extremety ED: Negative for edema General Extremity: Negative for edema Neuro oriented x3, CN's II-XII intact bilaterally, no sensory deficits noted and gait normal Sensorium / Orientation: awake, alert, oriented to person, oriented to place and oriented to time Motor Exam: strength 5/5 throughout and strength abnormal Psych mental status grossly normal Skin no rashes or lesions noted and no wounds MDM MDM MDM Narrative Medical decision making narrative: Patient presents with nausea and lightheadedness and elevated blood pressure this morning. She has been running out of her carvedilol so she is only taking it once a day instead of twice a day for the last several days. She became concerned when her blood pressure this morning was 160/98 she runs normally runs 130/85. Patient also has been under some increased stress. EKG obtained on arrival showed a sinus rhythm with a rate of 52 bpm with no acute ST segment changes. CBC with differential was unremarkable. Chemistries unremarkable. And troponin was normal. Patient was not given any treatment for blood pressure here and her current blood pressure is 127/70. Clinically she feels well. She will be discharged to home. I will write her prescription for carvedilol. Patient advised to follow-up with her primary care physician in 3 to 5 days. Lab Data Attestation: I reviewed the patient's lab results. EKG Initial EKG: Attestation: I personally reviewed and interpreted this EKG as follows: Comments: Sinus rhythm with rate of 52 bpm with no acute ST segment changes Discharge Plan Triage Chief Complaint: Hypertension ED Provider: Nuno Jamil Dx/Rx/DC Orders Clinical Impression: Hypertension Instructions: ED Hypertension, Established Prescriptions: New carvedilol 12.5 mg tablet 12.5 mg PO BID Qty: 60 0RF Rx Instructions: must administer with a meal/food No Action carvedilol 12.5 MG tablet 12.5 mg PO BID lisinopril-hydrochlorothiazide [Zestoretic] 1 EACH tablet 1 ea PO DAILY rosuvastatin [Crestor] 5 MG tablet 5 mg PO QHS zolpidem 5 MG tablet 5 mg PO QHS PRN PRN (Reason: Sleep) oxybutynin chloride 5 mg Tablet Extended Release 24hr 5 mg PO DAILY Primary Care Provider: Eri Teran Referrals: Eri Teran, DO [Primary Care Provider] - 3-5 Days Disposition Disposition: Home, Self Care
[2023-11-12 09:58] VITALS: BP 136/70; PULSE 54; RESP 16; O2SAT 93
[2023-11-12 10:09] LABS: Absolute Lymphocyte Count 1.24 X10^3/uL (0.83-4.51); Absolute Neutrophil Count 2.7 X10^3/uL (2.0-7.7); Basophil# 0.03 X10^3/uL; Basophil% 0.6 % (0-1); Eosinophil# 0.51 X10^3/uL; Eosinophils% 10.4 % (0-5); Hematocrit 43.3 % (37-47); Hemoglobin 14.2 g/dL (12.0-15.0); Lymphocyte # 1.24 X10^3/ul (0.83-4.51); Lymphocyte % 25.4 % (19-41); Mean Corp Hgb Conc 32.8 g/dL (32-36); Mean Corpuscular Hgb 30.1 pg (27.0-32.0); Mean Corpuscular Volume 91.7 fL (81-99); Mean Platelet Vol. 9.5 fl (6.2-12.0); Monocyte# 0.43 X10^3/uL; Monocyte% 8.8 % (0-10); NRBC Flagged by Analyzer 0 % (0-5); Neutrophil # 2.67 X10^3/uL (2.7-7.7); Neutrophil % 54.6 % (47-70); Platelet Count 294 K/mm3 (150-450); RBC Distribution Width CV 13.3 % (11.6-14.6); RBC Distribution Width SD 45.2 fl (35.1-43.9); Red Blood Count 4.72 M/mm3 (4.2-5.4); White Blood Count 4.9 K/mm3 (4.4-11.0)
--- OUTSIDE RECORDS SUMMARY | 2023-11-12 10:12 | XMS RPT_ITS | CCD ---
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 Name Role Phone Francesco Ramirez DO Unavailable Medications Completed/Discontinued Medications Medication Drug Class(es) Dates Sig (Normalized) Sig (Original) acetaminophen 325 mg / HYDROcodone bitartrate 5 mg oral tablet (1 source) Opioid Agonist Start: 06-07-2018 HYDROCODONE-ACETA MINOPHEN 5-325 MG TABS one tablet every six hours as needed for pain HYDROCODONE-ACETA MINOPHEN [id number] Francesco Ramirez DO acetaminophen 325 mg / oxyCODONE hydrochloride 7.5 mg oral tablet (1 source) Opioid Agonist Start: 06-07-2018 take 1 tablet by mouth once as needed, then take 8 tablets by mouth as needed PERCOCET 7.5-325 MG TABS 1 po q8 prn OXYCODONE-ACETAMI NOPHEN [id number] Francesco Ramirez DO carvedilol 12.5 mg oral tablet (1 source) alpha-Adrenergic Ihsan, beta-Adrenergic Ihsan Start: 06-06-2018 CARVEDILOL 12.5 MG TABS 1 tablet twice daily CARVEDILOL [id number] 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 hydroCHLOROthiazide 12.5 mg / lisinopril 20 mg oral tablet (1 source) Thiazide Diuretic, Angiotensin Converting Enzyme Inhibitor Start: 06-06-2018 LISINOPRIL-HYDROC HLOROTHIAZIDE 20-12.5 MG TABS 1 tablet daily LISINOPRIL-HYDROC HLOROTHIAZIDE [id number] 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 rosuvastatin calcium 5 mg oral tablet (1 source) HMG-CoA Reductase Inhibitor Start: 06-06-2018 ROSUVASTATIN CALCIUM 5 MG TABS 1 tablet daily ROSUVASTATIN CALCIUM [id number] 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 zolpidem tartrate 5 mg oral tablet (1 source) gamma-Aminobutyr ic Acid-ergic Agonist Start: 06-06-2018 ZOLPIDEM TARTRATE 5 MG TABS 1 tablet at bedtime ZOLPIDEM TARTRATE [id number] 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 Problems Active Problems Problem Classification Problem Date Documented Date Episodic/Chronic Other acquired deformities (1 source) Spondylolisthesis, lumbar region; Translations: [Spondylolisthesis, lumbar region] Onset: 06-07-2018 06-07-2018 Episodic Spondylosis; intervertebral disc disorders; other back problems (1 source) Prolapsed lumbar intervertebral disc; Translations: [Other intervertebral disc displacement, lumbar region] Onset: 06-07-2018 06-07-2018 Chronic Unclassified (1 source) Spinal stenosis, lumbar region with neurogenic claudication; Translations: [Spinal stenosis, lumbar region with neurogenic claudication] Onset: 06-07-2018 06-07-2018 Past or Other Problems Problem Classification Problem Date Documented Da te Episodic/Chronic Unclassified (1 source) Problem Results Test Name Value Interpretation Reference Range Facil ity Vital Signs Date Time Vital Sign Value Performing Clinician Facility NEGATED: Highlighted [id number] 14:25-0400 BMI (Body Mass Index) 30.29 kg/m2 [facility] Work Phone: NEGATED: Highlighted [id number] 14:25-0400 BP Diastolic 83 mm[Hg] [facility] Work Phone: NEGATED: Highlighted [id number] 14:25-0400 BP Diastolic 82 mm[Hg] [facility] Work Phone: NEGATED: Highlighted [id number] 14:25-0400 BP Systolic 148 mm[Hg] [facility] Work Phone: NEGATED: Highlighted [id number] 14:25-0400 BP Systolic 138 mm[Hg] [facility] Work Phone: NEGATED: Highlighted [id number] 14:250400 Height 157.48 cm [facility] Work Phone: NEGATED: Highlighted [id number] 14:25-0400 Height 157 cm [facility] Work Phone: NEGATED: Highlighted [id number] 14:25-0400 Pulse (Heart Rate) 63 /min [facility] Work Phone: NEGATED: Highlighted [id number] 14:25-0400 Weight 74.84 kg [facility] Work Phone: NEGATED: Highlighted [id number] 14:25-0400 Weight 75 kg [facility] Work Phone: Plan of Treatment Date Care Activity Detail Author Patient Education \[email or web address]\[email or web address] PtEducation\htn .pdf [facility] Work Phone: Immunizations Immunization Date Immunization Notes Care Provider Ema vega No information available. [facility] Work Phone: Social History Date Type Detail Facility Start: 06-11-2018 End: 06-11-2018 Assertion Unknown if ever [facility] [place] Work Phone: Instructions Instruction Description Start Date Patient advised to follow-up with Primary Care Physician for BMI management. Advance Directives There may be information available, but it has not been provided by the sender. Assessments There may be information available, but it has not been provided by the sender. Review of System There may be information available, but it has not been provided by the sender. Family History There may be information available, but it has not been provided by the sender. Additional Source Comments FOR RECORDS PERTAINING TO PATIENTS WHO ARE OR HAVE BEEN ENROLLED IN A CHEMICAL DEPENDENCY/SUBSTANCEABUSE PROGRAM, SOME INFORMATION MAY BE OMITTED. This clinical summary was aggregated from multiple sources. Caution should be exercised in using it in the provision of clinical care. This summary normalizes information from multiple sources, and as a consequence, information in this document may materially change the coding, format and clinical context of patient data. In addition, data may be omitted in some cases. CLINICAL DECISIONS SHOULD BE BASED ON THE PRIMARY CLINICAL RECORDS. [facility] [employer] [facility]. provides no warranty or guarantee of the accuracy or completeness of information in this document.
[2023-11-12 10:20] LABS: Anion Gap 4 (5-15); BUN 28 mg/dL (7-18); BUN/Creat Ratio 31.7 RATIO (10-20); Calcium,Total 9.5 mg/dL (8.5-10.1); Chloride 113 mmol/L (98-107); Creatinine, Serum 0.88 mg/dL (0.55-1.02); EST Glomerular Filtration Rate 65 mL/min (>60); Est Glom Filt Rate - Afr Amer 79 mL/min (>60); Estimated Creatinine Clearance 47.57 ml/min; Glucose 139 mg/dL (74-106); Potassium 3.5 mmol/L (3.5-5.1); Sodium Level 141 mmol/L (136-145); Troponin-I HS 9 pg/mL (3.0-54.0)
[2023-11-12 10:51] VITALS: BP 133/76; PULSE 49; RESP 16; O2SAT 98
== END 2023-11-12 10:52 | disposition home or self-care (01) ==
PROVIDERS: Emergency Provider Emergency Medicine; PCP Family Medicine; Visit Provider Emergency Medicine
DX: I10 Essential (primary) hypertension (principal); T44.7X6A Underdosing of beta-adrenoreceptor antagonists, initial encounter; Z91.128 Patient's intentional underdosing of medication regimen for other reason; R42 Dizziness and giddiness; R11.0 Nausea; E78.00 Pure hypercholesterolemia, unspecified; Z79.899 Other long term (current) drug therapy
CPT/HCPCS: 80048; 84484; 85025; 93005; 99283; A4216

== ENCOUNTER 2024-02-07 17:55 | Emergency (ER) | payer MEDICARE, SELFPAY ==
[2024-02-07 17:55] VITALS: BP 146/71; PULSE 55; RESP 16; TEMP 36.6; O2SAT 98; BMI 29.3
--- NOTE | 2024-02-07 19:38 | CT_ITS ---
EXAM: CT HEAD AND MAXILLOFACIAL WITHOUT INTRAVENOUS CONTRAST CLINICAL INDICATION: head injury, pain. TECHNIQUE: Helically acquired images were obtained of the head/brain and face without intravenous contrast. This CT exam was performed using one or more of the following dose reduction techniques: automated exposure control, adjustment of the mA and/or kV according to patient size, and/or use of iterative reconstruction technique. COMPARISON: CT head, 11/26/2017 FINDINGS: LIMITATIONS: The examinations are limited due to motion related artifacts. BRAIN AND EXTRA-AXIAL SPACES: There is non-specific periventricular hypoattenuation which is most commonly related to chronic microvascular ischemic disease in a patient of this age. There is no mass, mass-effect, or shift of the midline structures. No evidence of acute infarct or acute intracranial hemorrhage. There is no evidence of pathologic extra-axial fluid. There is no hydrocephalus. Patent basal cisterns. Posterior fossa structures are unremarkable. BONES/JOINTS: Medially displaced left nasal bone fracture and fracture of the nasal processes of the left maxilla. Nondisplaced right nasal bone fracture. Left greater than right TMJ arthrosis. Rightward nasal septal deviation and spurring. No additional acute maxillofacial injury. No discrete lytic or blastic abnormalities. SOFT TISSUES: Right frontal scalp laceration and soft tissue swelling. No discrete fluid collections. SINUSES: Trace mucosal thickening in the paranasal sinuses. MASTOID AIR CELLS: No significant abnormality. Clear. ORBITS: No acute findings. DENTAL: No significant findings. No periodontal osseous erosion. IMPRESSION: 1. Medially displaced left nasal bone fracture and fracture of the nasal processes of the left maxilla. Nondisplaced right nasal bone fracture. 2. Right frontal scalp laceration and soft tissue swelling. 3. No CT evidence of acute intracranial pathology and no additional evidence of an acute maxillofacial fracture is otherwise identified. EXAM: CT CERVICAL SPINE WITHOUT INTRAVENOUS CONTRAST CLINICAL INDICATION: head injury, pain. TECHNIQUE: Helically acquired images were obtained of the cervical spine without intravenous contrast. 2D reformatted images were reviewed. This CT exam was performed using one or more of the following dose reduction techniques: automated exposure control, adjustment of the mA and/or kV according to patient size, and/or use of iterative reconstruction technique. COMPARISON: No relevant prior studies available. FINDINGS: VERTEBRAE: Multilevel facet, uncovertebral joint, and endplate osteophytosis. No fracture. No traumatic subluxation. No discrete lytic or blastic abnormality. Normal alignment. Normal craniocervical junction and cervicothoracic junction. DISCS/SPINAL CANAL/NEURAL FORAMINA: Mild to moderate multilevel spinal canal stenosis. Multilevel intervertebral disc height loss. Mild to moderate multilevel neural foraminal narrowing. SOFT TISSUES: No significant abnormality. No prevertebral soft tissue swelling. VASCULATURE: Atherosclerosis. LYMPH NODES: No significant abnormality. No cervical adenopathy. LUNG APICES: Normal as visualized. Clear. CT/Brain/Head without Contrast IMPRESSION: Degenerative changes in the cervical spine. No acute osseous findings. Electronically Signed: Elijah Daniels DO at 20:05 EDT ,
--- NOTE | 2024-02-07 19:38 | CT_ITS ---
EXAM: CT HEAD AND MAXILLOFACIAL WITHOUT INTRAVENOUS CONTRAST CLINICAL INDICATION: head injury, pain. TECHNIQUE: Helically acquired images were obtained of the head/brain and face without intravenous contrast. This CT exam was performed using one or more of the following dose reduction techniques: automated exposure control, adjustment of the mA and/or kV according to patient size, and/or use of iterative reconstruction technique. COMPARISON: CT head, 11/26/2017 FINDINGS: LIMITATIONS: The examinations are limited due to motion related artifacts. BRAIN AND EXTRA-AXIAL SPACES: There is non-specific periventricular hypoattenuation which is most commonly related to chronic microvascular ischemic disease in a patient of this age. There is no mass, mass-effect, or shift of the midline structures. No evidence of acute infarct or acute intracranial hemorrhage. There is no evidence of pathologic extra-axial fluid. There is no hydrocephalus. Patent basal cisterns. Posterior fossa structures are unremarkable. BONES/JOINTS: Medially displaced left nasal bone fracture and fracture of the nasal processes of the left maxilla. Nondisplaced right nasal bone fracture. Left greater than right TMJ arthrosis. Rightward nasal septal deviation and spurring. No additional acute maxillofacial injury. No discrete lytic or blastic abnormalities. SOFT TISSUES: Right frontal scalp laceration and soft tissue swelling. No discrete fluid collections. SINUSES: Trace mucosal thickening in the paranasal sinuses. MASTOID AIR CELLS: No significant abnormality. Clear. ORBITS: No acute findings. DENTAL: No significant findings. No periodontal osseous erosion. IMPRESSION: 1. Medially displaced left nasal bone fracture and fracture of the nasal processes of the left maxilla. Nondisplaced right nasal bone fracture. 2. Right frontal scalp laceration and soft tissue swelling. 3. No CT evidence of acute intracranial pathology and no additional evidence of an acute maxillofacial fracture is otherwise identified. EXAM: CT CERVICAL SPINE WITHOUT INTRAVENOUS CONTRAST CLINICAL INDICATION: head injury, pain. TECHNIQUE: Helically acquired images were obtained of the cervical spine without intravenous contrast. 2D reformatted images were reviewed. This CT exam was performed using one or more of the following dose reduction techniques: automated exposure control, adjustment of the mA and/or kV according to patient size, and/or use of iterative reconstruction technique. COMPARISON: No relevant prior studies available. FINDINGS: VERTEBRAE: Multilevel facet, uncovertebral joint, and endplate osteophytosis. No fracture. No traumatic subluxation. No discrete lytic or blastic abnormality. Normal alignment. Normal craniocervical junction and cervicothoracic junction. DISCS/SPINAL CANAL/NEURAL FORAMINA: Mild to moderate multilevel spinal canal stenosis. Multilevel intervertebral disc height loss. Mild to moderate multilevel neural foraminal narrowing. SOFT TISSUES: No significant abnormality. No prevertebral soft tissue swelling. VASCULATURE: Atherosclerosis. LYMPH NODES: No significant abnormality. No cervical adenopathy. LUNG APICES: Normal as visualized. Clear. CT/Spine Cervical without Contras IMPRESSION: Degenerative changes in the cervical spine. No acute osseous findings. Electronically Signed: Elijah Daniels DO at 20:06 EDT ,
--- NOTE | 2024-02-07 19:52 | RAD_ITS ---
EXAM: XR LEFT HAND COMPLETE, 3 OR MORE VIEWS CLINICAL INDICATION: pain TECHNIQUE: Frontal, lateral and oblique views of the left hand. COMPARISON: No relevant prior studies available. FINDINGS: BONES/JOINTS: Nondisplaced fracture of the base of the fourth metacarpal. Osteopenia and diffuse degenerative changes throughout the hand and wrist particularly at the basal joint of the thumb. No sclerotic or destructive changes observed. SOFT TISSUES: Mostly dorsal soft tissue swelling. No radiopaque foreign body. RAD/Hand Min 3 Views IMPRESSION: 1. Mostly dorsal soft tissue swelling. 2. Nondisplaced fracture of the base of the fourth metacarpal. 3. Osteopenia and diffuse degenerative changes throughout the hand and wrist particularly at the basal joint of the thumb. Electronically Signed: Elijah Daniels DO at 20:17 EDT ,
[2024-02-07 19:55] VITALS: BP 155/63; PULSE 61; RESP 16; O2SAT 94
--- NOTE | 2024-02-07 20:12 | EX.ED.GENINJ ---
HPI History of Present Illness Chief Complaint: Head Injury Narrative Narrative: 83-year-old female presenting with facial injury and head injury. Patient states that she is also but she had not seen in a while and turned to talk to them and fell landing on her face. No LOC. Not on blood thinners. She initially had a headache but it is gone. She has some superficial laceration to the forehead and nasal bridge swelling. No epistaxis. No visual complaints, slurred speech, wound vomiting, abnormal behavior. Patient states when she went down she hurt her left hand. She does not note any numbness or tingling. Her left wrist is fine and she states there is no pain in it. [facility] Medical History High cholesterol HTN (hypertension) Home Medications carvedilol 12.5 mg tablet 12.5 mg PO BID 04/11/17 [History Last Taken 05/29/18] lisinopril 20 mg-hydrochlorothiazide 12.5 mg tablet (Zestoretic) 1 ea PO DAILY 04/11/17 [History Last Taken 05/29/18] rosuvastatin 5 mg tablet (Crestor) 5 mg PO QHS 11/26/17 [History Last Taken 05/28/18] zolpidem 5 mg tablet 5 mg PO QHS PRN PRN Sleep 05/29/18 [History Last Taken 05/28/18] oxybutynin chloride 5 mg tablet,extended release 24 hr 5 mg PO DAILY 08/06/21 [History Last Taken Unknown] carvedilol 12.5 mg tablet 12.5 mg PO BID #60 tabs 11/12/23 [Rx Last Taken Unknown] Allergy/AdvReac Type Severity Reaction Status Date / Time No Known Allergies Allergy Verified 02/07/24 17:55 Social History Smoking Status: Never smoker [facility] ED Constitutional Constitutional ED: Denies chills, fever(s) or sweats Eyes Eyes: Denies blurry vision or change in vision ENT ENT ED: Denies ear pain or sore throat Cardiovascular Cardiovascular: Denies chest pain, palpitations or racing heartbeat Respiratory/Chest Respiratory/Chest: Denies cough, dyspnea or sputum Gastrointestinal Gastrointestinal: Denies abdominal pain, constipation, diarrhea, nausea or vomiting Genitourinary Genitourinary ED: Denies dysuria, hematuria or urinary frequency Musculoskeletal Musculoskeletal: Reports other Details: Left hand pain ; Denies arthralgias, myalgias or neck pain Integumentary Reports Abrasions; Denies abscess or rash Neurologic Neurologic: Reports headache(s); Denies paresthesias or weakness Psychiatric Psychiatric: Denies anxiety, depression, suicidal ideation or suicidal thoughts Endocrine Endocrinology: Denies polydipsia or polyuria EXAM Physical Exam Const Vital Signs: 02/07/24 17:55 02/07/24 18:55 02/07/24 19:55 Temperature 97.8 F Temperature Source Temporal Pulse Rate 55 L 61 Respiratory Rate 16 16 Respiratory Effort Normal Non-Labored Respiratory Depth Normal Respiratory Pattern Normal Blood Pressure 146/71 H 155/63 H Blood Pressure Mean 96 93 Pulse Ox 98 94 Oxygen Delivery Method Room Air Room Air Room Air 02/07/24 21:00 02/07/24 22:32 Temperature 97.8 F Temperature Source Pulse Rate 64 78 Respiratory Rate 18 16 Respiratory Effort Respiratory Depth Respiratory Pattern Blood Pressure 184/84 H 169/87 H Blood Pressure Mean 117 114 Pulse Ox 98 99 Oxygen Delivery Method Room Air Positive well nourished General Appearance ED: NAD HEENT trauma Face and Sinus: face symmetric Nose: other Other Details: No nasal septal hematoma. There is bruising and swelling noted to the bridge of the nose. ; Negative for nasal discharge External Ear: external ears normal and mastoids normal Tympanic Membrane ED: Yes TM's normal bilaterally Mouth ED: Yes oral and palatal mucosa normal, Yes lips normal and Yes tongue normal Mouth: oral and palatal mucosa normal, lips normal and tongue normal Throat: posterior oropharynx normal Eyes PERRL Resp normal respiratory effort GI normal to inspection, nondistended, normoactive bowel sounds Extremity Extremity Narrative: Left hand is tender to palpation fairly diffusely. No noted bony deformities or bruising. No swelling. The left wrist is nontender to palpation. No bruising or swelling noted here. Brisk cap refill to all 5 fingers. Neurovascular intact. Neuro oriented x3 Motor Exam: strength 5/5 throughout Psych mental status grossly normal Skin Skin Narrative: 2 very small less than 1/4 cm superficial lacerations noted to the forehead with contusion and/abrasion noted to the bridge of the nose. MDM MDM MDM Narrative Medical decision making narrative: -year-old female presenting with mechanical fall and facial injuries. No evidence of basilar skull fracture. TMs no hemotympanum. Mastoids are normal. There is bruising over the bridge of the nose and some tenderness over the medial maxillary region on the left under the eye. No facial bone motion. No jaw malocclusion. Dentition are intact. No midline deformities or step-offs of the cervical spine. Differential includes concussion, closed head injury, intracranial hemorrhage, skull fracture, C-spine fracture, facial bone fractures, nasal fracture. CT brain, cervical spine were obtained and are negative. CT of the maxillofacial region shows both left and right nasal bone fracture and a fracture of the nasal aspect of the maxilla. Left hand x-ray on my interpretation shows a nondisplaced fracture of the fourth metacarpal. Radiology interprets this and agrees. Patient was placed in a hand fabricated well-padded ulnar gutter splint. Neurovascular intact afterwards. This was performed by ED physician. Patient will be given referral to ENT and orthopedics. Impression: 1. Bilateral nasal bone fracture 2. Left fourth metacarpal fracture 3. Mechanical fall 4. Closed head injury 5. Superficial lacerations to the forehead Lab Data Attestation: I reviewed the patient's lab results. Radiography Diagnostic Testing: Clinical Impression(s) from Imaging Studies Brain CT 02/07/24 19:38 IMPRESSION: Degenerative changes in the cervical spine. No acute osseous findings. Electronically Signed: Elijah Daniels DO at 20:05 EDT , Cervical Spine CT 02/07/24 19:38 IMPRESSION: Degenerative changes in the cervical spine. No acute osseous findings. Electronically Signed: Elijah Daniels DO at 20:06 EDT , Facial/Sinus 02/07/24 19:38 IMPRESSION: Degenerative changes in the cervical spine. No acute osseous findings. Electronically Signed: Elijah Daniels DO at 20:06 EDT , Hand X-Ray 02/07/24 19:52 IMPRESSION: 1. Mostly dorsal soft tissue swelling. 2. Nondisplaced fracture of the base of the fourth metacarpal. 3. Osteopenia and diffuse degenerative changes throughout the hand and wrist particularly at the basal joint of the thumb. Electronically Signed: Elijah Daniels DO at 20:17 EDT , Discharge Plan Triage Chief Complaint: Head Injury ED Provider: Luigi Beard Dx/Rx/DC Orders Instructions: ED Facial Contusion, ED Nose Fracture, with X-Ray, ED Closed Hand Fracture (Adult) Prescriptions: No Action carvedilol 12.5 MG tablet 12.5 mg PO BID lisinopril-hydrochlorothiazide [Zestoretic] 1 EACH tablet 1 ea PO DAILY rosuvastatin [Crestor] 5 MG tablet 5 mg PO QHS zolpidem 5 MG tablet 5 mg PO QHS PRN PRN (Reason: Sleep) oxybutynin chloride 5 mg Tablet Extended Release 24hr 5 mg PO DAILY carvedilol 12.5 mg tablet 12.5 mg PO BID Qty: 60 0RF Rx Instructions: must administer with a meal/food Primary Care Provider: Eri Teran Referrals: Quentin Douglas MD [Med Staff - Active Staff] - Eri Teran DO [Primary Care Provider] - Manav Nuñez MD [Med Staff - Active Staff] - 3-5 Days Disposition Disposition: Home, Self Care Discharge Date/Time: 02/07/24 22:35
[2024-02-07 21:00] VITALS: BP 184/84; PULSE 64; RESP 18; O2SAT 98
[2024-02-07 22:32] VITALS: BP 169/87; PULSE 78; RESP 16; TEMP 36.6; O2SAT 99
== END 2024-02-07 22:35 | disposition home or self-care (01) ==
PROVIDERS: Emergency Provider Student in an Organized Health Care Education/Training Program; PCP Family Medicine; Visit Provider Student in an Organized Health Care Education/Training Program
DX: S02.2XXA Fracture of nasal bones, initial encounter for closed fracture (principal); S02.40DA Maxillary fracture, left side, initial encounter for closed fracture; S62.345A Nondisplaced fracture of base of fourth metacarpal bone, left hand, initial encounter for closed fracture; W01.10XA Fall on same level from slipping, tripping and stumbling with subsequent striking against unspecified object, initial encounter; Y93.01 Activity, walking, marching and hiking; I10 Essential (primary) hypertension; E78.00 Pure hypercholesterolemia, unspecified; Z79.899 Other long term (current) drug therapy
CPT/HCPCS: 29125; 70450; 70486; 72125; 73130; 99282

== ENCOUNTER → 2024-05-20 | Outpatient (CLI) | payer MEDICARE, SELFPAY ==
[2024-05-20 12:04] LABS: Vitamin D,25 Hydroxy 29.2 ng/mL
[2024-05-20 12:30] LABS: Anion Gap 6 (5-15); BUN 29 mg/dL (7-18); BUN/Creat Ratio 36.2 RATIO (10-20); Calcium,Total 9.7 mg/dL (8.5-10.1); Chloride 107 mmol/L (98-107); Cholesterol 180 mg/dL (200); EST Glomerular Filtration Rate 73 mL/min (>60); Est Glom Filt Rate - Afr Amer 88 mL/min (>60); Glucose 122 mg/dL (74-106); High Density Lipoprotein 42 mg/dL; Potassium 3.8 mmol/L (3.5-5.1); Sodium Level 140 mmol/L (136-145); Triglycerides 224 mg/dL; Very Low Density Lipoprotein 45 mg/dL (5-40)
== END | disposition home or self-care (01) ==
LOC: MFPLAB 10:28
PROVIDERS: PCP Family Medicine; Visit Provider Family Medicine
DX: I10 Essential (primary) hypertension (principal); R35.0 Frequency of micturition; E55.9 Vitamin D deficiency, unspecified; E78.5 Hyperlipidemia, unspecified
CPT/HCPCS: 36415; 80048; 80061; 82306

== ENCOUNTER → 2025-02-17 | Outpatient (CLI) | payer MEDICARE, SELFPAY ==
--- NOTE | 2025-02-17 14:10 | RAD_ITS ---
PROCEDURE: KNEE 4 OR MORE VIEWS 02/17/2025 REASON FOR EXAM: RIGHT KNEE INJURY TECHNIQUE: 4 view(s) of the right knee COMPARISON: None FINDINGS: No acute fracture or traumatic malalignment. Superior patellar enthesophyte. There is thickening of the patellar tendon shadow. Trace suprapatellar joint effusion. Vascular calcifications in the soft tissues. Mild prepatellar edema. RAD/Knee 4 or More Views IMPRESSION: 1. No acute osseous abnormality. 2. Thickened appearance of the patellar tendon could be the result of patellar tendinopathy or injury. Correlate with history. Reading Location: [id number]
== END | disposition home or self-care (01) ==
LOC: MTRAD 14:10
PROVIDERS: PCP Family Medicine; Referring Provider Family Medicine; Visit Provider Family Medicine
DX: M25.569 Pain in unspecified knee (principal)
CPT/HCPCS: 73564

== ENCOUNTER → 2025-04-22 | Outpatient (CLI) | payer MEDICARE, SELFPAY ==
--- NOTE | 2025-04-22 10:05 | EKG12_ITS ---
Test Reason : PRE OP Blood Pressure : */* mmHG Vent. Rate : 53 BPM Atrial Rate : 53 BPM P-R Int : 184 ms QRS Dur : 80 ms QT Int : 434 ms P-R-T Axes : -15 -27 4 degrees QTcB Int : 407 ms Sinus bradycardia Voltage criteria for left ventricular hypertrophy Junctional ST depression, probably normal Abnormal ECG Confirmed by Aiden Alvarez ([id number]), food editor BRIONNA VALLES ([id number]) on 04/23/2025 11:23:05 AM Referred By: Sheldon Cooper Confirmed By: Aiden Alvarez
--- NOTE | 2025-04-22 10:05 | EKG12_ITS ---
Test Reason : PRE OP Blood Pressure : */* mmHG Vent. Rate : 53 BPM Atrial Rate : 53 BPM P-R Int : 184 ms QRS Dur : 80 ms QT Int : 434 ms P-R-T Axes : -15 -27 4 degrees QTcB Int : 407 ms Sinus bradycardia Voltage criteria for left ventricular hypertrophy Junctional ST depression, probably normal Abnormal ECG Confirmed by Aiden Alvarez ([id number]), online editor BRIONNA VALLES ([id number]) on 04/23/2025 11:23:05 AM Referred By: Sheldon Cooper Confirmed By: Aiden Alvarez
--- OUTSIDE RECORDS SUMMARY | 2025-04-22 19:49 | XMS RPT_ITS | CCD ---
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 Morenita Wheeler Primary Care Provider Aime Pedro MD Attending Provider Aime Pedro MD Referring Provider [phone] Morenita Jennings Primary Care Unavailable Morenita Jennings Attending Unavailable Sheldon Cooper Attending Unavailable Morenita Jennings Primary Care Unavailable Sheldon Cooper Attending Unavailable Sheldon Cooper Referring Unavailable Morenita Jennings Primary Care Unavailable Morenita Jennings Primary Care Unavailable Aime Pedro Attending Unavailable Aime Pedro Referring Unavailable Medications Current Medications Medication Drug Class(es) Dates Sig (Normalized) Sig (Original) hydroCHLOROthiazide 12.5 mg / lisinopril 20 mg oral tablet (7 sources) Thiazide Diuretic, Angiotensin Converting Enzyme Inhibitor Start: 04-11-2017 Lisinopril-Hydr ochlorothiazide (Zestoretic 20-12.5 Mg Tablet) 1 EACH tablet Active 1 NMA PO DAILY April 11, 2017 12:00am Completed/Discontinued Medications Medication Drug Class(es) Dates Sig (Normalized) Sig (Original) acetaminophen 325 mg / HYDROcodone bitartrate 5 mg oral tablet (1 source) Opioid Agonist Start: 06-07-2018 HYDROCODONE-ACETAM INOPHEN 5-325 MG TABS one tablet every six hours as needed for pain HYDROCODONE-ACETAM INOPHEN [id number] Francesco Pedroza James MUÑOZ acetaminophen 325 mg / oxyCODONE hydrochloride 7.5 mg oral tablet (1 source) Opioid Agonist Start: 06-07-2018 take 1 tablet by mouth once as needed, then take 8 tablets by mouth as needed PERCOCET 7.5-325 MG TABS 1 po q8 prn OXYCODONE-ACETAMIN OPHEN [id number] Scot D Ramirez DO carvedilol 12.5 mg oral tablet (11 sources) alpha-Adrenergic Ihsan, beta-Adrenergic Ihsan Start: 04-11-2017 End: 02-12-2024 take 1 tablet by mouth twice daily at mealtime Carvedilol 12.5 mg tablet Discontinued 12.5 mg PO TWICE A DAY 60 November 12, 2023 1:00am February 12, 2024 8:18am must administer with a meal/food 24 hr oxybutynin chloride 5 mg extended release oral tablet (6 sources) Cholinergic Muscarinic Antagonist Start: 08-06-2021 End: 02-12-2024 take 1 tablet by mouth once daily Oxybutynin Chloride 5 mg Tablet Extended Release 24hr Discontinued 5 mg PO DAILY August 06, 2021 12:00am February 12, 2024 8:18am rosuvastatin calcium 5 mg oral tablet (7 sources) HMG-CoA Reductase Inhibitor Start: 06-06-2018 ROSUVASTATIN CALCIUM 5 MG TABS 1 tablet daily ROSUVASTATIN CALCIUM [id number] Janet Diehl NON MORSE INTERCEPT TECHNICIAN Start: 11-26-2017 End: 02-12-2024 take 1 tablet by mouth at bedtime Rosuvastatin (Crestor) 5 MG tablet Discontinued 5 mg PO AT BEDTIME November 26, 2017 1:00am February 12, 2024 8:18am zolpidem tartrate 5 mg oral tablet (7 sources) gamma-Aminobutyric Acid-ergic Agonist Start: 06-06-2018 ZOLPIDEM TARTRATE 5 MG TABS 1 tablet at bedtime ZOLPIDEM TARTRATE [id number] Janet Diehl NON MORSE INTERCEPT TECHNICIAN Start: 05-29-2018 End: 02-12-2024 take 1 tablet by mouth at bedtime as needed for sleep Zolpidem 5 MG tablet Discontinued 5 mg PO AT BEDTIME NEEDED as needed for Sleep May 29, 2018 12:00am February 12, 2024 8:18am Problems Active Problems Problem Classification Problem Date Documented Date Episodic/Chronic Essential hypertension (4 sources) Hypertensive disorder; Translations: [Essential (primary) hypertension] Onset: 06-17-2024 11-12-2023 Chronic Fracture of lower limb (6 sources) Closed fracture of ankle; Translations: [Other fracture of left lower leg, initial encounter for closed fracture] 11-11-2015 Episodic Fracture of upper limb (1 source) Closed fracture of metacarpal bone; Translations: [Unspecified fracture of unspecified metacarpal bone, initial encounter for closed fracture] 02-12-2024 Episodic Other acquired deformities (1 source) Spondylolisthesis, lumbar region; Translations: [Spondylolisthesis, lumbar region] Onset: 06-07-2018 06-07-2018 Episodic Other circulatory disease (6 sources) Syncope due to orthostatic hypotension; Translations: [Orthostatic hypotension] 08-14-2021 Episodic Other non-traumatic joint disorders (1 source) Pain in unspecified knee; Translations: [Pain in unspecified knee] Onset: 02-21-2025 Episodic Skin and subcutaneous tissue infections (6 sources) Cellulitis of face; Translations: [Cellulitis of face] 03-20-2014 Episodic Spondylosis; intervertebral disc disorders; other back [...] Results Test Name Value Interpretation Reference Range Facility Knee 4 or More Viewson 02-17 Knee 4 or More Views [facility] Imaging Services [address] [place] [id number] Knee 4 or More Views MR#: [id number] Acct: [id number] Name: ADRIANNA BALDERAS Rep #: [id number] : 1940 F 84 From: Frank Weston MD PCP: Dr. Morenita Jennings MD Status: REG CLI Study: Knee 4 or More Views Date of Exam: 02/17/25 Exam# [id number] Ordering Dr: Aime Pedro MD PROCEDURE: KNEE 4 OR MORE VIEWS 02/17/2025 REASON FOR EXAM: RIGHT KNEE INJURY TECHNIQUE: 4 view(s) of the right knee COMPARISON: None FINDINGS: No acute fracture or traumatic malalignment. Superior patellar enthesophyte. There is thickening of the patellar tendon shadow. Trace suprapatellar joint effusion. Vascular calcifications in the soft tissues. Mild prepatellar edema. RAD/Knee 4 or More Views IMPRESSION: 1. No acute osseous abnormality. 2. Thickened appearance of the patellar tendon could be the result of patellar tendinopathy or injury. Correlate with history. Reading Location: [id number] CC: Dr. Morenita Jennings MD; Dr. Aime Pedro MD Mechanical Project Manager: Signed Normal [facility] Basic Metabolic Profile (BMP )on 05-20-2024 BUN/CRE 36.2 RATIO High 10-[address] [facility] Comment on above: Performed By: #### L 500.4100, L500.2500, L506.1000 #### [facility] Laboratory [address] [place], [address] CA,Total 9.7 mg/dL Normal 8.5-10.[address] [facility] Comment on above: Performed By: #### L 500.4100, L500.2500, L506.1000 #### [facility] [address] [place], [address] Chloride [Moles/Vol] 107 mmol/L Normal 98-107 [facility] Comment on above: Performed By: #### L 500.4100, L500.2500, L506.1000 #### [facility] [address] [place], [address] CO2 [Moles/Vol] 27.0 mmol/L Normal 21.0-32.[address] [facility] Comment on above: Performed By: #### L 500.4100, L500.2500, L506.1000 #### [facility] [address] [place], [address] Creatinine [Mass/Vol] 0.80 mg/dL Normal 0.55-1.02 [place] Comment on above: Result Comment: The validity of the calculated GFR GFRAA in patients over 70 years has not been determined. Clinical correlation is essential. Performed By: #### L 500.4100, L500.2500, L506.1000 #### [facility] [address] [place], [address] EST GFR - AA 88 mL/min Normal >[address] [facility] Comment on above: Result Comment: Afri can [place] GFR Calc Performed By: #### L 500.4100, L500.2500, L506.1000 #### [facility] [address] [place], [address] GAP 6 Normal 5-[address] [facility] Comment on above: Performed By: #### L 500.4100, L500.2500, L506.1000 #### [facility] [address] [place], [address] GFR/1.73 sq M.predicted among non-blacks MDRD (S/P/Bld) [Vol rate/Area] 73 mL/min/{1.73_m2} Normal >[address] [facility] Comment on above: Result Comment: Non- GFR Calc Performed By: #### L 500.4100, L500.2500, L506.1000 #### [facility] [address] [place], [address] Glucose [Mass/Vol] 122 mg/dL High 74-106 [facility] Comment on above: Result Comment: Fast ing Glucose result from 100 to 125 mg/dL suggests IMPAIRED HOMEOSTASIS per A.D.A. criteria. Performed By: #### L 500.4100, L500.2500, L506.1000 #### [facility] [address] [place], [address] Potassium [Moles/Vol] 3.8 mmol/L Normal 3.5-5.1 [place] Comment on above: Performed By: #### L 500.4100, L500.2500, L506.1000 #### [facility] [address] [place], [address] Sodium [Moles/Vol] 140 mmol/L Normal 136-145 [facility] Comment on above: Performed By: #### L 500.4100, L500.2500, L506.1000 #### [facility] [address] [place], [address] Urea nitrogen [Mass/Vol] 29 mg/dL High 7-[address] [facility] Comment on above: Performed By: #### L 500.4100, L500.2500, L506.1000 #### [facility] [address] [place], [address] Lipid Profileon 05-20-2024 Cholesterol [Mass/Vol] 180 mg/dL Normal 200 [facility] Comment on above: Result Comment: <200 mg/dL Desirable 200-240 mg/dL Borderline >240 mg/dL High Risk Performed By: #### L 500.4100, L500.2500, L506.1000 #### [facility] [address] [place], [address] Cholesterol in HDL [Mass/Vol] 42 mg/dL Normal [facility] Comment on above: Result Comment: The drugs N-Acetylcysteine and Metamizole may falsely depress this assay. Reference Range HDL <40 mg/dL Low HDL Cholesterol HDL >or= 60 mg/dL High HDL Cholesterol Performed By: #### L 500.4100, L500.2500, L506.1000 #### [facility] [address] [place], [address] Cholesterol in LDL [Mass/Vol] 93 mg/dL Normal 0-[address] [facility] Comment on above: Performed By: #### L 500.4100, L500.2500, L506.1000 #### [facility] [address] [place], [address] Cholesterol in VLDL [Mass/Vol] 45 mg/dL High 5-[address] [facility] Comment on above: Performed By: #### L 500.4100, L500.2500, L506.1000 #### [facility] [address] [place], [address] Triglyceride [Mass/Vol] 224 mg/dL High [facility] Comment on above: Result Comment: The drugs N-Acetylcysteine and Metamizole may falsely depress this assay. Serum Triglycerides Reference Interval Normal <150 mg/dL Borderline high 150 - 199 mg/dL High 200 - 499 mg/dL Very High > or = 500 mg/dL Performed By: #### L 500.4100, L500.2500, L506.1000 #### [facility] [address] [place], [address] Vitamin D,25 Hydroxyon 05-20 Vitamin D 25-OH 29.2 ng/mL Normal [facility] Comment on above: Result Comment: Magalis min D 25(OH) Status Range Deficiency <20 ng/mL (50nmol/L) Insufficiency 20 - 30 ng/mL (50 - 75 nmol/L) Sufficiency 30 - 100 ng/mL (75 - 250 nmol/L) Toxicity >100 ng/mL (>250 nmol/L) Performed By: #### L 500.4100, L500.2500, L506.1000 #### [facility] [address] [place], [address] Absolute lymphocyte countOrd ered By: Nuno Jamil on 11-12-2023 Lymphocytes Auto (Unsp spec) [#/Vol] 1.24 10*3/uL 0.83-4.[address] [facility] Automated lymphocyte count a s percentage of total leukocytesOrdered By: Nuno Jamil on 11-12-2023 Lymphocytes/100 WBC Auto (Unsp spec) 25.4 % 19-[address] [facility] Basophil percentageOrdered B y: Remus Jamil on 11-12-2023 Basophils/100 WBC (Bld) 0.6 % 0-[address] [facility] Chloride [Moles/Vol] 113 mmol/L 98-107 [facility] Eosinophils/100 WBC (Bld) 10.4 % 0-[address] [facility] Glucose [Mass/Vol] 139 mg/dL 74-106 [facility] Comment on above: Fasting Glucose resu lt greater than or equal to 126 mg/dL suggests DIABETES MELLITUS per A.D.A. criteria. Hemoglobin (Bld) [Mass/Vol] 14.2 g/dL 12.0-15.[address] [facility] Monocytes/100 WBC (Bld) 8.8 % 0-[address] [facility] Neutrophils (Bld) [#/Vol] 2.7 10*3/uL 2.0-7.[address] [facility] Neutrophils/100 WBC (Bld) 54.6 % 47-[address] [facility] Potassium [Moles/Vol] 3.5 mmol/L 3.5-5.1 [place] Sodium [Moles/Vol] 141 mmol/L 136-145 [facility] WBC (Bld) [#/Vol] 4.9 10*3/uL 4.4-11.0 [facility] Determination of erythrocyte mean corpuscular volume (MCV)Ordered By: Nuno Jamil on 11-12-2023 MCV (RBC) [Entitic vol] 91.7 fL 81-[address] [facility] Erythrocyte distribution wid th ratioOrdered By: Nuno Jamil on 11-12-2023 Erythrocyte distribution width (RBC) [Ratio] 13.3 % 11.6-14.[address] [facility] Erythrocyte distribution wid th standard deviationOrdered By: [facility] on 11-12-2023 Erythrocyte distribution width (RBC) [Entitic vol] 45.2 fL 35.1-43.[address] [facility] Hematocrit Auto (Bld) [Volum e fraction]Ordered By: [facility] Jamil on 11-12-2023 Hematocrit (Bld) [Volume fraction] 43.3 % 37-[address] [facility] Immature granulocytes/100 WB C Auto (Bld)Ordered By: Nuno Jamil on 11-12-2023 Immature granulocytes/100 WBC (Bld) 0.200 % 0.0-0.[address] [facility] Comment on above: IG% - Immature Granu locytes (promyelocytes, myelocytes and metamyelocytes) > 1% indicates that a LEFT SHIFT is Present. Laboratory - Chemistry and C hemistry - challengeOrdered By: Nuno Jamil on 11-12-2023 CO2 [Moles/Vol] 24.0 mmol/L 21.0-32.[address] [facility] Urea nitrogen/Creatinine [Mass ratio] 31.7 mg/mg 10-[address] [facility] Laboratory - Hematology and Cell countsOrdered By: Nuno Jamil on 11-12-2023 MCH (RBC) [Entitic mass] 30.1 pg 27.0-32.[address] [facility] MCHC (RBC) [Mass/Vol] 32.8 g/dL 32-36 [place] Nucleated RBC/100 WBC (Bld) [Ratio] 0 % 0-[address] [facility] Platelets (Bld) [#/Vol] 294 10*3/uL 150-[address] [facility] No Panel InformationOrdered By: Nuno Jamil on 11-12-2023 Estimated Creatinine Clearance Calc 47.57 ml/min [facility] Estimated GFR (MDRD) Amer 79 mL/min >[address] [facility] Comment on above: GFR Calc Estimated GFR (MDRD) Non-Af Amer 65 mL/min >[address] [facility] Comment on above: Non- GFR Calc Troponin I High Sensitivity 9 pg/mL 3.0-54.[address] [facility] Comment on above: Please Note: New Bruna t Units and Gender Specific Reference Ranges. For more information see Policy Stat Procedure [place] High Sensitivity Troponin (TNIH) and attachments. Platelet mean volume Yamil-Ec ker (Bld) [Entitic vol]Ordered By: Nuno Jamil on 11-12-2023 Platelet mean volume (Bld) [Entitic vol] 9.5 fL 6.2-12.[address] [facility] RBC Auto (Bld) [#/Vol]Ordere d By: Nuno Jamil on 11-12-2023 RBC (Bld) [#/Vol] 4.72 10*6/uL 4.2-5.4 [facility] Serum or plasma calcium tarah urement (mass/volume)Ordered By: Nuno Jamil on 11-12-2023 Calcium [Mass/Vol] 9.5 mg/dL 8.5-10.1 [facility] Serum or plasma creatinine m easurement (mass/volume)Ordered By: Nuno Jamil on 11-12-2023 Creatinine [Mass/Vol] 0.88 mg/dL 0.55-1.02 [place] Comment on above: The validity of the calculated GFR & GFRAA in patients over 70 years has not been determined. Clinical correlation is essential. Serum or plasma urea nitroge n measurement (mass/volume)Ordered By: Nuno Jamil on 11-12-2023 Urea nitrogen [Mass/Vol] 28 mg/dL 7-[address] [facility] Thin prep Papanicolaou smear with manual screeningOrdered By: Nuno Jamil on 11-12-2023 Thin prep Papanicolaou smear with manual screening 4 5-[address] [facility] Absolute lymphocyte countOrd ered By: Eri Teran on 11-15-2022 Lymphocytes Auto (Unsp spec) [#/Vol] 1.44 10*3/uL 0.83-4.[address] [facility] Basophil percentageOrdered B y: Eri Teran on 11-15-2022 Basophils/100 WBC (Bld) 1.2 % 0-[address] [facility] Bilirubin [Mass/Vol] 1.00 mg/dL 0.20-1.00 [facility] Comment on above: For patients on eltr ombopag therapy, use of Dimension [place] TBIL is not recommended. Chloride [Moles/Vol] 114 mmol/L 98-107 [facility] Cholesterol [Mass/Vol] 165 mg/dL <200 [facility] Comment on above: <200 mg/dL Desirable 200-240 mg/dL Borderline >240 mg/dL High Risk Eosinophils/100 WBC (Bld) 3.5 % 0-[address] [facility] Glucose [Mass/Vol] 117 mg/dL 74-106 [facility] Comment on above: Fasting Glucose resu lt from 100 to 125 mg/dL suggests IMPAIRED HOMEOSTASIS per A.D.A. criteria. Neutrophils (Bld) [#/Vol] 3.0 10*3/uL 2.0-7.[address] [facility] Neutrophils/100 WBC (Bld) 58.5 % 47-[address] [facility] Potassium [Moles/Vol] 3.8 mmol/L 3.5-5.1 [place] Protein [Mass/Vol] 7.8 g/dL 6.4-8.2 [facility] Sodium [Moles/Vol] 143 mmol/L 136-145 [facility] Triglyceride [Mass/Vol] 188 mg/dL <[address] [facility] Comment on above: The drugs N-Acetylcy steine and Metamizole may falsely depress this assay.Serum Triglycerides Reference Interval Normal <150 mg/dL Borderline high 150 - 199 mg/dL High 200 - 499 mg/dL Very High > or = 500 mg/dL WBC (Bld) [#/Vol] 5.1 10*3/uL 4.4-11.0 [facility] Blood erythrocytes count (nu mber/volume)Ordered By: Eri Teran on 11-15-2022 RBC (Bld) [#/Vol] 4.62 10*6/uL 4.2-5.4 [facility] Blood hemoglobin measurement (mass/volume)Ordered By: Eri Teran on 11-15-2022 Hemoglobin (Bld) [Mass/Vol] 14.3 g/dL 12.0-15.[address] [facility] Blood lymphocytes/100 leukoc ytesOrdered By: Eri Teran on 11-15-2022 Lymphocytes/100 WBC (Bld) 28.0 % 19-[address] [facility] Blood monocytes/100 leukocyt esOrdered By: Eri Teran on 11-15-2022 Monocytes/100 WBC (Bld) 8.6 % 0-[address] [facility] Blood platelet mean volumeOr dered By: Eri Teran on 11-15-2022 Platelet mean volume (Bld) [Entitic vol] 9.9 fL 6.2-12.[address] [facility] Determination of erythrocyte mean corpuscular volume (MCV)Ordered By: Eri Teran on 11-15-2022 MCV (RBC) [Entitic vol] 94.6 fL 81-[address] [facility] Hematocrit Auto (Bld) [Volum e fraction]Ordered By: Eri Teran on 11-15-2022 Hematocrit (Bld) [Volume fraction] 43.7 % 37-[address] [facility] Laboratory - Chemistry and C hemistry - challengeOrdered By: Eri Teran on 11-15-2022 ALP [Catalytic activity/Vol] 71 U/L 45-[address] [facility] ALT [Catalytic activity/Vol] 30 U/L 13-[address] [facility] CO2 [Moles/Vol] 21.0 mmol/L 21.0-32.[address] [facility] Globulin (S) [Mass/Vol] 4.2 g/dL 2.2-4.[address] [facility] Urea nitrogen/Creatinine [Mass ratio] 36.7 mg/mg 10-[address] [facility] Laboratory - Hematology and Cell countsOrdered By: Eri Teran on 11-15-2022 Erythrocyte distribution width (RBC) [Entitic vol] 45.9 fL 35.1-43.[address] [facility] Erythrocyte distribution width (RBC) [Ratio] 13.2 % 11.6-14.[address] [facility] Immature granulocytes/100 WBC (Bld) 0.200 % 0.0-0.[address] [facility] Comment on above: IG% - Immature Granu locytes (promyelocytes, myelocytes and metamyelocytes) > 1% indicates that a LEFT SHIFT is Present. MCH (RBC) [Entitic mass] 31.0 pg 27.0-32.[address] [facility] Nucleated RBC/100 WBC (Bld) [Ratio] 0 % 0-[address] [facility] MCHC Auto (RBC) [Mass/Vol]Or dered By: Eri Teran on 11-15-2022 MCHC (RBC) [Mass/Vol] 32.7 g/dL 32-36 [place] No Panel InformationOrdered By: Eri Teran on 11-15-2022 Estimated GFR (MDRD) Amer 75 mL/min >[address] [facility] Comment on above: GFR Calc Estimated GFR (MDRD) Non-Af Amer 62 mL/min >[address] [facility] Comment on above: Non- GFR Calc Vitamin D 25-Hydroxy 17.7 ng/mL [facility] Comment on above: Vitamin D 25(OH) Sta tus Range Deficiency <20 ng/mL (50nmol/L) Insufficiency 20 - 30 ng/mL (50 - 75 nmol/L) Sufficiency 30 - 100 ng/mL (75 - 250 nmol/L) Toxicity >100 ng/mL (>250 nmol/L) Platelets bldOrdered By: Jeanmarie Teran on 11-15-2022 Platelets (Bld) [#/Vol] 273 10*3/uL 150-[address] [facility] Serum or plasma albumin tarah urement (mass/volume)Ordered By: Eri Teran on 11-15-2022 Albumin [Mass/Vol] 3.6 g/dL 3.2-5.0 [facility] Serum or plasma albumin/glob ulin mass ratioOrdered By: Eri Teran on 11-15-2022 Albumin/Globulin [Mass ratio] 0.9 {ratio} 0.9-2.[address] [facility] Serum or plasma calcium tarah urement (mass/volume)Ordered By: Eri Teran on 11-15-2022 Calcium [Mass/Vol] 9.4 mg/dL 8.5-10.1 [facility] Serum or plasma cholesterol in HDL measurement (mass/volume)Ordered By: Eri Teran on 11-15-2022 Cholesterol in HDL [Mass/Vol] 43 mg/dL >[address] [facility] Comment on above: The drugs N-Acetylcy steine and Metamizole may falsely depress this assay. Reference Range HDL <40 mg/dL Low HDL Cholesterol HDL >or= 60 mg/dL High HDL Cholesterol Serum or plasma cholesterol in VLDL measurement (mass/volume)Ordered By: Eri Teran on 11-15-2022 Cholesterol in VLDL [Mass/Vol] 38 mg/dL 5-[address] [facility] Serum or plasma creatinine m easurement (mass/volume)Ordered By: Eri Teran on 11-15-2022 Creatinine [Mass/Vol] 0.93 mg/dL 0.55-1.02 [place] Comment on above: The validity of the calculated GFR & GFRAA in patients over 70 years has not been determined. Clinical correlation is essential. Serum or plasma low density lipoprotein (LDL) cholesterol measurement (mass/volume)Ordered By: Eri Teran on 11-15-2022 Cholesterol in LDL [Mass/Vol] 84 mg/dL 0-[address] [facility] Serum or plasma urea nitroge n measurement (mass/volume)Ordered By: Eri Teran on 11-15-2022 Urea nitrogen [Mass/Vol] 34 mg/dL 7-[address] [facility] Thin prep Papanicolaou smear with manual screeningOrdered By: Eri Teran on 11-15-2022 Thin prep Papanicolaou smear with manual screening 26 U/L 15-[address] [facility] Thin prep Papanicolaou smear with manual screening 8 5-[address] [facility] Culture, urineOrdered By: Catracho Teran on 11-02-2022 Bacteria identified Cx Nom (U) Mixed Gram Pos & Gram Neg Org [facility] Clinical Summary: HMSPatient IDon 06-07-2018 OOP Invalid Interpretation Code [facility] Work Phone: Clinical Summary: Scanned RO S Summaryon 06-07-2018 endocrine ROS Denies Invalid Interpretation Code [facility] Work Phone: genitourinary review of systems, E&M Complains Invalid Interpretation Code [facility] Work Phone: genitourinary system review of systems, comments Frequenent Urination Invalid Interpretation Code [facility] Work Phone: Lymphocytes Auto #/vol (Bld) Denies Invalid Interpretation Code [facility] Work Phone: Review of Systems Neurologic comment Numbness,Weakness Invalid Interpretation Code [facility] Work Phone: ROS cardiovascular E&M Denies Invalid Interpretation Code [facility] Work Phone: ROS ENT E&M Denies Invalid Interpretation Code [facility] Work Phone: ROS gastrointestinal E&M Denies Invalid Interpretation Code [facility] Work Phone: ROS general E&M Denies Invalid Interpretation Code [facility] Work Phone: ROS Musculoskeletal comments Muscle Weakness,Pain,Stif fness Invalid Interpretation Code [facility] Work Phone: ROS musculoskeletal E&M Complains Invalid Interpretation Code [facility] Work Phone: ROS neurological E&M Complains Invalid Interpretation Code [facility] Work Phone: ROS Psych comment Difficulty Sleeping Invalid Interpretation Code [facility] Work Phone: ROS psychiatric E&M Complains Invalid Interpretation Code [facility] Work Phone: ROS pulmonary E&M Denies Invalid Interpretation Code [facility] Work Phone: ROS skin E&M Denies Invalid Interpretation Code [facility] Work Phone: Office Visit: New - 1st visi t with practice, Rm: 40on 06-07-2018 NEGATED: Highlighted rowMRI (magnetic resonance imaging) history of the back on 05/29/2018 at [place] Invalid Interpretation Code [facility] Work Phone: NEGATED: Highlighted rowProtein mass conc Done Invalid Interpretation Code [facility] Work Phone: Clinical Lists Update: Prelo ad Extendedon 06-06-2018 Tobacco smoking status NHIS Tobacco smoking status NHIS Invalid Interpretation Code [facility] Work Phone: Culture, urine Bacteria identified Cx Nom (U) Presumptive E. coli [facility] Work Phone: Vital Signs Date Time Vital Sign Value Performing Clinician Facility 02-07-2024 22:32-0400 Body temperature 97.8 [degF] [facility] 02-07-2024 22:32-0400 Diastolic blood pressure 87 mm[Hg] [facility] 02-07-2024 22:32-0400 Heart rate 78 /min [facility] 02-07-2024 22:32-0400 Respiratory rate 16 /min [facility] 02-07-2024 22:32-0400 SaO2% (BldA) [Mass fraction] 99 % [facility] 02-07-2024 22:32-0400 Systolic blood pressure 169 mm[Hg] [facility] 02-07-2024 17:55-0400 Body height 157.48 cm [facility] 02-07-2024 17:55-0400 Body mass index (BMI) [Ratio] 29.3 kg/m2 [facility] 02-07-2024 17:55-0400 Body weight 72.75 kg [facility] 11-12-2023 10:51-0500 Diastolic blood pressure 76 mm[Hg] [facility] 11-12-2023 10:51-0500 Heart rate 49 /min [facility] 11-12-2023 10:51-0500 Respiratory rate 16 /min [facility] 11-12-2023 10:51-0500 SaO2% (BldA) [Mass fraction] 98 % [facility] 11-12-2023 10:51-0500 Systolic blood pressure 133 mm[Hg] [facility] 11-12-2023 09:24-0500 Body height 157.48 cm [facility] 11-12-2023 09:24-0500 Body mass index (BMI) [Ratio] 30.2 kg/m2 [facility] 11-12-2023 09:24-0500 Body temperature 97.6 [degF] [facility] 11-12-2023 09:24-0500 Body weight 75.11 kg [facility] NEGATED: Highlighted [id number] 14:25-0400 BMI (Body Mass Index) 30.29 kg/m2 [facility] Work Phone: NEGATED: Highlighted [id number] 14:25-0400 BP Diastolic 83 mm[Hg] [facility] Work Phone: NEGATED: Highlighted [id number] 14:25-0400 BP Diastolic 82 mm[Hg] [facility] Work Phone: NEGATED: Highlighted [id number] 14:25-0400 BP Systolic 148 mm[Hg] [facility] Work Phone: NEGATED: Highlighted [id number] 14:250400 BP Systolic 138 mm[Hg] [facility] Work Phone: NEGATED: Highlighted [id number] 14:[address] [facility] Work Phone: NEGATED: Highlighted [id number] 14:[address] [facility] Work Phone: NEGATED: Highlighted [id number] 14:25-040 Pulse (Heart Rate) 63 /min [facility] Work Phone: NEGATED: Highlighted [id number] 14:25-040 Weight 74.84 kg [facility] Work Phone: NEGATED: Highlighted [id number] 14:040 Weight 75 kg [facility] Work Phone: Encounters Encounter Date Encounter Type Care Provider Facility Start: 07-07-2025 ambulatory [facility] Facility: [facility] Start: 04-22-2025 ambulatory [facility] Facility: [facility] Start: 04-16-2025 Encounter for preprocedural cardiovascular examination [facility] Start: 02-17-2025 End: 02-17-[address] Morenita Jennings MD Work Phone: [facility] Work Phone: Start: 02-17-2025 End: 02-17-[address] Aime Pedro MD -[facility] [place] Work Phone: Start: 02-17-2025 End: 02-17-2025 ambulatory Morenita Jennings Facility:[facility] Start: 05-20-2024 End: 05-20-2024 ambulatory Morenita Jennings Facility:[facility] Start: 02-07-2024 End: 02-07-2024 Emergency department patient visit [facility] Work Phone: Start: 11-12-2023 End: 11-12-2023 Emergency department patient visit [facility] Work Phone: Start: 11-15-2022 Patient encounter procedure [facility]-Laboratory, Elliott Conner Start: 11-01-2022 End: 11-01-[address] [facility] Work Phone: Start: 11-01-2022 End: 11-01-2022 Patient encounter procedure [facility], Specimen Start: 06-28-2022 End: 06-28-[address] [facility] Work Phone: Start: 06-28-2022 End: 06-28-2022 Patient encounter procedure [facility]Labor[facility], Specimen Start: 06-02-2022 End: 06-02-[address] [facility] Work Phone: Start: 06-02-2022 End: 06-02-2022 Patient encounter procedure [facility], Specimen Procedures Date Procedure Procedure Detail Performing Clinician Start: 02-17-2025 X-ray of knee, four or more views Dr[address] Morenita Jennings MD Work Phone: Start: 02-07-2024 Plain x-ray of hand Start: 02-07-2024 CT cervical spine wi thout contrast Start: 02-07-2024 CT of face Start: 02-07-2024 CT of head without contrast Urine culture Urine culture Plan of Treatment Date Care Activity Detail Author Start: 11-12-2023 [facility] Microalbumin [Mass/v olume] in Urine [facility] Patient Education [facility] Work Phone: Patient referral [facility] Work Phone: Immunizations Immunization Date Immunization Notes Care Provider mEa vega 08-08-2014 Influenza virus vaccine [facility] No information available. Noris Rios [facility] [place] [facility] Work Phone: Payers Date Payer Category Payer Medicare [id number] 2024 Self-pay [id number] Medicare MEDICARE PART A B [id number] Unknown [id number] Unknown [id number] Unknown [id number] Unknown [id number] Social History Date Type Detail Facility Start: 08-06-2021 End: 02-07-2024 Assertion Unknown if ever smoked [facility] Work Phone: Start: 1940 Sex Assigned At Female [facility] Start: 09-30-2014 Rare [facility] Start: 09-30-2014 None [facility] Start: 09-30-2014 Spouse/ Signif icant Other [facility] Start: 09-30-2014 Non-smoker [facility] Start: 02-12-2024 Tobacco smoking stat us ORIS Never smoked tobacco (finding) [facility] Mental Status Date Assessment Result Facility 11-12-2023 Cognitive function Level Of Cons ciousness Awake;Alert;Appropriate;Follow s Commands [facility] Work Phone: Radiology Diagnostic study note 02-20-2025 Note Date & Type Note Facility 02-20-2025 Radiology Diagnostic study note [facility] Imaging Services [address] [place] [address] Knee 4 or More Views MR#: [id number] Acct: [id number] Name: ANDREYADRIANNAHILDA BLANC Rep #: [id number] : [id number] F [id number] From: Johanny Weston MD PCP: Dr. Morenita Jennings MD Status: REG CLI Study:Knee 4 or More Views Date of Exam: 02/17/25 Exam# [id number] Ordering Dr: Janet Pedro MD PROCEDURE: KNEE 4 OR MORE VIEWS 02/17/2025 REASON FOR EXAM: RIGHT KNEE INJURY TECHNIQUE: 4 view(s) of the right knee COMPARISON: None FINDINGS: No acute fracture or traumatic malalignment. Superior patellar enthesophyte. There is thickening of the patellar tendon shadow. Trace suprapatellar joint effusion. Vascular calcifications in the soft tissues. Mild prepatellar edema. RAD/Knee 4 or More Views IMPRESSION: 1. No acute osseous abnormality. 2. Thickened appearance of the patellar tendon could be the result of patellar tendinopathy or injury. Correlate with history. Reading Location: [id number] CC: Dr. Morenita Jennings MD; Dr. 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 Evaluation note Note Date & Type Note Facility Evaluation note No assessment information availa [facility] Work Phone: Reason for referral (narrative) Note Date & Type Note Facility Reason for referral (narrative) No reason for referral information available [facility] Work Phone: Instructions Instruction Description Start Date Patient advised to follow-up with Primary Care Physician for BMI management. Advance Directives No Advanced Directives Records Found Advance Directive Response Recorded Date/ Time Advance Directives Yes November 14, 2014 1:36pm Living Will Yes August 06 7:38pm Power of Director Corporate Compliance Yes August 06, 2021 7:38pm Advance Directive Response Recorded Date/ Time Advance Directives Yes November 14, 2014 12:36pm Living Will Yes August 06 6:38pm Power of Director Corporate Compliance Yes August 06, 2021 6:38pm Advance Directive Response Recorded Date/ Time Advance Directives Yes November 14, 2014 12:36pm Living Will Yes November 12 9:46am Power of Director Corporate Compliance Yes November 12, 2023 9:46am Name of Medical Power of Director Corporate Compliance [email or web address] November 12, 2023 9:46am Advance Directive Response Recorded Date/ Time Name of Medical Power of Director Corporate Compliance [email or web address] November 12, 2023 10:46am Name of Medical Power of Director Corporate Compliance . February 07, 2024 6:55pm Advance Directives Yes November 14, 2014 1:36pm Living Will Yes February 07, 2024 6: 55pm Power of Director Corporate Compliance Yes February 07, 2024 6:55pm Advance Directive Response Recorded Date/ Time Advance Directives Yes November 14, 2014 1:36pm Assessments There may be information available, but it has not been provided by the sender. Review of System There may be information available, but it has not been provided by the sender. Family History No Family History Records Found Relationship Condition Age at Onset Recorded Date/T jenn Unknown Family History?Heart Disease Unknown September 30, 2014 4:21pm Family History?Stroke Unknown Decemb er 2013 4:21pm Relationship Condition Age at Onset Recorded Date/T jenn Unknown Family History?Heart Disease Unknown September 30, 2014 3:21pm Family History?Stroke Unknown Dece er 2013 3:21pm Chief Complaint and Reason for Visit Chief Complaint HTN Chief Complaint HTN HEAD INJURY Chief Complaint Admit Date RIght knee injury February 17, 2025 2:09p m Summary Purpose Additional Source Comments Goals (unrecognized section and content) Goals may be documented in a n alternate sectionGoals may be documented in an alternate sectionGoals may be documented in an alternate sectionGoals may be documented in an alternate sectionGoals may be documented in an alternate sectionGoals may be documented in an alternate section Care Teams (unrecognized sec tion and content) Team Status: Active Member Role Status Dates Dr. Alex Burger MD Family Provider Active Eri Teran DO Primary Care Provider Active Team Status: Inactive Member Role Status Dates Dr. Alex Burger MD Primary Care Provider Active Eri Teran DO Attending Provider Active Team Status: Active Member Role Status Dates Eri Teran DO Primary Care Provi parminder, Attending Provider, Referring Provider Active Team Status: Inactive Member Role Status Dates Eri Teran DO Primary Care Provider Active Dr. Nuno Jamil , DO Emergency Provider Active Team Status: Inactive Member Role Status Dates Eri Teran , DO Primary Care Provider Active Dr. Nuno Jamil , DO Attending Provider, Emergency Pro vider Active Team Status: Inactive Member Role Status Dates Eri Teran , Primary Care Provider Active Dr. Luigi Beard , DO Emergency Provider Active Team Status: Active Member Role Status Dates Dr. Alex Burger MD Family Provider Active Dr. Morenita Jennings MD Primary Care Provider Active Team Status: Inactive Member Role Status Dates Dr. Morenita Jennings MD Primary Care Provider Active Start: February 17, 2025 End: February 17, 2025 Aime Pedro MD Attending Provider Active Start : February 17, 2025 End: February 17, 2025 Aime Pedro MD Referring Provider Active Start : February 17, 2025 End: February 17, 2025 INFORMATION SOURCE (unrecogn ized section and content) DATE CREATED AUTHOR 04/19/2025 [facility] FOR RECORDS PERTAINING TO PATIENTS WHO ARE [...] BE BASED ON THE PRIMARY CLINICAL RECORDS. [employer] provides no warranty or guarantee of the accuracy or completeness of information in this document.
--- OUTSIDE RECORDS SUMMARY | 2025-04-22 19:49 | XMS RPT_ITS | CCD ---
Author Organization [facility] Care Team Providers Care Sample Prep Technician Name Role Phone Francesco Ramirez DO Unavailable Michaela SOFIA, Dr. Morenita Wheeler Primary Care Provider [phone] Aime Pedro MD Attending Provider [phone] Aime Pedro MD Referring Provider [phone] Morenita Jennings Primary Care Unavailable Morenita [...] hours as needed for pain HYDROCODONE-ACETAM INOPHEN [id number] Francesco Pedroza James MUÑOZ acetaminophen 325 mg / oxyCODONE hydrochloride 7.5 mg oral tablet (1 source) Opioid Agonist Start: 06-07-2018 take 1 tablet by mouth once as needed, then take 8 tablets by mouth as needed PERCOCET 7.5-325 MG TABS 1 po q8 prn OXYCODONE-ACETAMIN OPHEN [id number] Scot D Ramirez DO carvedilol 12.5 mg [...] MG TABS 1 tablet daily ROSUVASTATIN CALCIUM [id number] Janet Diehl PRESS LOADER Start: 11-26-2017 End: 02-12-2024 take 1 tablet by mouth at bedtime Rosuvastatin (Crestor) 5 MG tablet Discontinued 5 mg PO AT BEDTIME November 26, 2017 1:00am February 12, 2024 8:18am zolpidem tartrate 5 mg oral tablet (7 sources) gamma-Aminobutyric Acid-ergic Agonist Start: 06-06-2018 ZOLPIDEM TARTRATE 5 MG TABS 1 tablet at bedtime ZOLPIDEM TARTRATE [id number] Janet Diehl PRESS LOADER Start: 05-29-2018 End: 02-12-2024 take 1 tablet [...] Viewson 02-17 Knee 4 or More Views [facility] [address] [place] [address] [phone] Knee 4 or More Views MR#: [id number] Acct: [id number] Name: ADRIANNA BALDERAS Rep #: [id number] : [id number] F [id number] From: Frank Weston MD PCP: Dr. Morenita Jennings MD Status: REG CLI Study: Knee 4 or More Views Date of Exam: 02/17/25 Exam# [id number] Ordering Dr: Aime Pedro MD PROCEDURE: KNEE [...] or injury. Correlate with history. Reading Location: [id number] CC: Dr. Morenita Jennings MD; Dr. Aime Pedro MD Travel Pta: Signed Normal [facility] Basic Metabolic Profile (BMP )on 05-20-2024 BUN/CRE 36.2 RATIO High 10-20 [facility] Comment on above: Performed By: #### L 500.4100, L500.2500, L506.1000 #### [facility] Laboratory [address] [place], [address] CA,Total 9.7 mg/dL Normal 8.5-10.1 [facility] Comment on above: Performed By: #### L 500.4100, L500.2500, L506.1000 #### [facility] [address] [place], [address] Chloride [Moles/Vol] 107 mmol/L Normal 98-107 [facility] Comment on above: Performed By: #### L 500.4100, L500.2500, L506.1000 #### [facility] [address] [place], [address] CO2 [Moles/Vol] 27.0 mmol/L Normal 21.0-32.0 [facility] Comment on above: Performed By: #### L 500.4100, L500.2500, L506.1000 #### [facility] [address] [place], [address] Creatinine [Mass/Vol] 0.80 mg/dL Normal 0.55-1.02 [facility] Comment on above: Result Comment: The validity of the calculated GFR GFRAA in patients over 70 years has not been determined. Clinical correlation is essential. Performed By: #### L 500.4100, L500.2500, L506.1000 #### [facility] [address] [place], [address] EST GFR - AA 88 mL/min Normal >60 [facility] Comment on above: Result Comment: Afri can Nauruan GFR Calc Performed By: #### L 500.4100, L500.2500, L506.1000 #### [facility] [address] [place], [address] GAP 6 Normal 5-15 [facility] Comment on above: Performed By: #### L 500.4100, L500.2500, L506.1000 #### [facility] [address] [place], [address] GFR/1.73 sq M.predicted among non-blacks MDRD (S/P/Bld) [Vol rate/Area] 73 mL/min/{1.73_m2} Normal >60 [facility] Comment on above: Result Comment: Non- GFR Calc Performed By: #### L 500.4100, L500.2500, L506.1000 #### [facility] [address] [place], [address] Glucose [Mass/Vol] 122 mg/dL High 74-106 [facility] Comment on above: Result Comment: Fast ing Glucose result from 100 to 125 mg/dL suggests IMPAIRED HOMEOSTASIS per A.D.A. criteria. Performed By: #### L 500.4100, L500.2500, L506.1000 #### [facility] [address] [place], [address] Potassium [Moles/Vol] 3.8 mmol/L Normal 3.5-5.1 [facility] Comment on above: Performed By: #### L 500.4100, L500.2500, L506.1000 #### [facility] [address] [place], [address] Sodium [Moles/Vol] 140 mmol/L Normal 136-145 [facility] Comment on above: Performed By: #### L 500.4100, L500.2500, L506.1000 #### [facility] [address] [place], [address] Urea nitrogen [Mass/Vol] 29 mg/dL High 7-18 [facility] Comment on above: Performed By: #### L 500.4100, L500.2500, L506.1000 #### [facility] [address] [place], [address] Lipid Profileon 05-20-2024 Cholesterol [Mass/Vol] 180 mg/dL Normal 200 [facility] Comment on above: Result Comment: <200 mg/dL Desirable 200-240 mg/dL Borderline >240 mg/dL High Risk Performed By: #### L 500.4100, L500.2500, L506.1000 #### [facility] [address] [place], [address] Cholesterol in HDL [Mass/Vol] 42 mg/dL Normal [facility] Comment on above: Result Comment: The drugs N-Acetylcysteine and Metamizole may falsely depress this assay. Reference Range HDL <40 mg/dL Low HDL Cholesterol HDL >or= 60 mg/dL High HDL Cholesterol Performed By: #### L 500.4100, L500.2500, L506.1000 #### [facility] [address] [place], [address] Cholesterol in LDL [Mass/Vol] 93 mg/dL Normal 0-130 [facility] Comment on above: Performed By: #### L 500.4100, L500.2500, L506.1000 #### [facility] [address] [place], [address] Cholesterol in VLDL [Mass/Vol] 45 mg/dL High 5-40 [facility] Comment on above: Performed By: #### L 500.4100, L500.2500, L506.1000 #### [facility] [address] [place], [address] Triglyceride [Mass/Vol] 224 mg/dL High [facility] Comment on above: Result Comment: The drugs N-Acetylcysteine and Metamizole may falsely depress this assay. Serum Triglycerides Reference Interval Normal <150 mg/dL Borderline high 150 - 199 mg/dL High 200 - 499 mg/dL Very High > or = 500 mg/dL Performed By: #### L 500.4100, L500.2500, L506.1000 #### [facility] [address] [place], [address] Vitamin D,25 Hydroxyon 05-20 Vitamin D 25-OH 29.2 ng/mL Normal [facility] Comment on above: Result Comment: Magalis min D 25(OH) Status Range Deficiency <20 ng/mL (50nmol/L) Insufficiency 20 - 30 ng/mL (50 - 75 nmol/L) Sufficiency 30 - 100 ng/mL (75 - 250 nmol/L) Toxicity >100 ng/mL (>250 nmol/L) Performed By: #### L 500.4100, L500.2500, L506.1000 #### [facility] [address] [place], [address] Absolute lymphocyte countOrd ered By: Nuno Jamil on 11-12-2023 Lymphocytes Auto (Unsp spec) [#/Vol] 1.24 10*3/uL 0.83-4.51 [facility] Automated lymphocyte count a s percentage of total leukocytesOrdered By: Nuno Jamil on 11-12-2023 Lymphocytes/100 WBC Auto (Unsp spec) 25.4 % 19-41 [facility] Basophil percentageOrdered B y: Remus Jamil on 11-12-2023 Basophils/100 WBC (Bld) 0.6 % 0-1 [facility] Chloride [Moles/Vol] 113 mmol/L 98-107 [facility] Eosinophils/100 WBC (Bld) 10.4 % 0-5 [facility] Glucose [Mass/Vol] 139 mg/dL 74-106 [facility] Comment on above: Fasting Glucose resu lt greater than or equal to 126 mg/dL suggests DIABETES MELLITUS per A.D.A. criteria. Hemoglobin (Bld) [Mass/Vol] 14.2 g/dL 12.0-15.0 [facility] Monocytes/100 WBC (Bld) 8.8 % 0-10 [facility] Neutrophils (Bld) [#/Vol] 2.7 10*3/uL 2.0-7.7 [facility] Neutrophils/100 WBC (Bld) 54.6 % 47-70 [facility] Potassium [Moles/Vol] 3.5 mmol/L 3.5-5.1 [facility] Sodium [Moles/Vol] 141 mmol/L 136-145 [facility] WBC (Bld) [#/Vol] 4.9 10*3/uL 4.4-11.0 [facility] Determination of erythrocyte mean corpuscular volume (MCV)Ordered By: Nuno Jamil on 11-12-2023 MCV (RBC) [Entitic vol] 91.7 fL 81-99 [facility] Erythrocyte distribution wid th ratioOrdered By: Nuno Jamil on 11-12-2023 Erythrocyte distribution width (RBC) [Ratio] 13.3 % 11.6-14.6 [facility] Erythrocyte distribution wid th standard deviationOrdered By: [facility] on 11-12-2023 Erythrocyte distribution width (RBC) [Entitic vol] 45.2 fL 35.1-43.9 [facility] Hematocrit Auto (Bld) [Volum e fraction]Ordered By: [facility] Jam[facility] on 11-12-2023 Hematocrit (Bld) [Volume fraction] 43.3 % 37-47 [facility] Immature granulocytes/100 WB C Auto (Bld)Ordered By: Nuno Jamil on 11-12-2023 Immature granulocytes/100 WBC (Bld) 0.200 % 0.0-0.9 [facility] Comment on above: IG% - Immature Granu locytes (promyelocytes, myelocytes and metamyelocytes) > 1% indicates that a LEFT SHIFT is Present. Laboratory - Chemistry and C hemistry - challengeOrdered By: Nuno Jamil on 11-12-2023 CO2 [Moles/Vol] 24.0 mmol/L 21.0-32.0 [facility] Urea nitrogen/Creatinine [Mass ratio] 31.7 mg/mg 10-20 [facility] Laboratory - Hematology and Cell countsOrdered By: Nuno Jamil on 11-12-2023 MCH (RBC) [Entitic mass] 30.1 pg 27.0-32.0 [facility] MCHC (RBC) [Mass/Vol] 32.8 g/dL 32-36 [facility] Nucleated RBC/100 WBC (Bld) [Ratio] 0 % 0-5 [facility] Platelets (Bld) [#/Vol] 294 10*3/uL 150-450 [facility] No Panel InformationOrdered By: Nuno Jamil on 11-12-2023 Estimated Creatinine Clearance Calc 47.57 ml/min [facility] Estimated GFR (MDRD) Amer 79 mL/min >60 [facility] Comment on above: GFR Calc Estimated GFR (MDRD) Non-Af Amer 65 mL/min >60 [facility] Comment on above: Non- GFR Calc Troponin I High Sensitivity 9 pg/mL 3.0-54.0 [facility] Comment on above: Please Note: New Bruna t Units and Gender Specific Reference Ranges. For more information see Policy Stat Procedure Topmost High Sensitivity Troponin (TNIH) and attachments. Platelet mean volume Yamil-Ec ker (Bld) [Entitic vol]Ordered By: Nuno Jamil on 11-12-2023 Platelet mean volume (Bld) [Entitic vol] 9.5 fL 6.2-12.0 [facility] RBC Auto (Bld) [#/Vol]Ordere d By: Nuno Jamil on 11-12-2023 RBC (Bld) [#/Vol] 4.72 10*6/uL 4.2-5.4 [facility] Serum or plasma calcium tarah urement (mass/volume)Ordered By: Nuno Jamil on 11-12-2023 Calcium [Mass/Vol] 9.5 mg/dL 8.5-10.1 [facility] Serum or plasma creatinine m easurement (mass/volume)Ordered By: Nuno Jamil on 11-12-2023 Creatinine [Mass/Vol] 0.88 mg/dL 0.55-1.02 [facility] Comment on above: The validity of the calculated GFR & GFRAA in patients over 70 years has not been determined. Clinical correlation is essential. Serum or plasma urea nitroge n measurement (mass/volume)Ordered By: Nuno Jamil on 11-12-2023 Urea nitrogen [Mass/Vol] 28 mg/dL 7-18 [facility] Thin prep Papanicolaou smear with manual screeningOrdered By: Nuno Jamil on 11-12-2023 Thin prep Papanicolaou smear with manual screening 4 5-15 [facility] Absolute lymphocyte countOrd ered By: Eri Teran on 11-15-2022 Lymphocytes Auto (Unsp spec) [#/Vol] 1.44 10*3/uL 0.83-4.51 [facility] Basophil percentageOrdered B y: Eri Teran on 11-15-2022 Basophils/100 WBC (Bld) 1.2 % 0-1 [facility] Bilirubin [Mass/Vol] 1.00 mg/dL 0.20-1.00 [facility] Comment on above: For patients on eltr ombopag therapy, use of Dimension Topmost TBIL is not recommended. Chloride [Moles/Vol] 114 mmol/L 98-107 [facility] Cholesterol [Mass/Vol] 165 mg/dL <200 [facility] Comment on above: <200 mg/dL Desirable 200-240 mg/dL Borderline >240 mg/dL High Risk Eosinophils/100 WBC (Bld) 3.5 % 0-5 [facility] Glucose [Mass/Vol] 117 mg/dL 74-106 [facility] Comment on above: Fasting Glucose resu lt from 100 to 125 mg/dL suggests IMPAIRED HOMEOSTASIS per A.D.A. criteria. Neutrophils (Bld) [#/Vol] 3.0 10*3/uL 2.0-7.7 [facility] Neutrophils/100 WBC (Bld) 58.5 % 47-70 [facility] Potassium [Moles/Vol] 3.8 mmol/L 3.5-5.1 [facility] Protein [Mass/Vol] 7.8 g/dL 6.4-8.2 [facility] Sodium [Moles/Vol] 143 mmol/L 136-145 [facility] Triglyceride [Mass/Vol] 188 mg/dL <199 [facility] Comment on above: The drugs N-Acetylcy steine and Metamizole may falsely depress this assay.Serum Triglycerides Reference Interval Normal <150 mg/dL Borderline high 150 - 199 mg/dL High 200 - 499 mg/dL Very High > or = 500 mg/dL WBC (Bld) [#/Vol] 5.1 10*3/uL 4.4-11.0 [facility] Blood erythrocytes count (nu mber/volume)Ordered By: Eri Teran on 11-15-2022 RBC (Bld) [#/Vol] 4.62 10*6/uL 4.2-5.4 [facility] Blood hemoglobin measurement (mass/volume)Ordered By: Eri Teran on 11-15-2022 Hemoglobin (Bld) [Mass/Vol] 14.3 g/dL 12.0-15.0 [facility] Blood lymphocytes/100 leukoc ytesOrdered By: rEi Teran on 11-15-2022 Lymphocytes/100 WBC (Bld) 28.0 % 19-41 [facility] Blood monocytes/100 leukocyt esOrdered By: Eri Teran on 11-15-2022 Monocytes/100 WBC (Bld) 8.6 % 0-10 [facility] Blood platelet mean volumeOr dered By: Eri Teran on 11-15-2022 Platelet mean volume (Bld) [Entitic vol] 9.9 fL 6.2-12.0 [facility] Determination of erythrocyte mean corpuscular volume (MCV)Ordered By: Eri Teran on 11-15-2022 MCV (RBC) [Entitic vol] 94.6 fL 81-99 [facility] Hematocrit Auto (Bld) [Volum e fraction]Ordered By: Eri Teran on 11-15-2022 Hematocrit (Bld) [Volume fraction] 43.7 % 37-47 [facility] Laboratory - Chemistry and C hemistry - challengeOrdered By: Eri Teran on 11-15-2022 ALP [Catalytic activity/Vol] 71 U/L 45-117 [facility] ALT [Catalytic activity/Vol] 30 U/L 13-56 [facility] CO2 [Moles/Vol] 21.0 mmol/L 21.0-32.0 [facility] Globulin (S) [Mass/Vol] 4.2 g/dL 2.2-4.2 [facility] Urea nitrogen/Creatinine [Mass ratio] 36.7 mg/mg 10-20 [facility] Laboratory - Hematology and Cell countsOrdered By: Eri Teran on 11-15-2022 Erythrocyte distribution width (RBC) [Entitic vol] 45.9 fL 35.1-43.9 [facility] Erythrocyte distribution width (RBC) [Ratio] 13.2 % 11.6-14.6 [facility] Immature granulocytes/100 WBC (Bld) 0.200 % 0.0-0.9 [facility] Comment on above: IG% - Immature Granu locytes (promyelocytes, myelocytes and metamyelocytes) > 1% indicates that a LEFT SHIFT is Present. MCH (RBC) [Entitic mass] 31.0 pg 27.0-32.0 [facility] Nucleated RBC/100 WBC (Bld) [Ratio] 0 % 0-5 [facility] MCHC Auto (RBC) [Mass/Vol]Or dered By: Eri Teran on 11-15-2022 MCHC (RBC) [Mass/Vol] 32.7 g/dL 32-36 [facility] No Panel InformationOrdered By: Eri Teran on 11-15-2022 Estimated GFR (MDRD) Amer 75 mL/min >60 [facility] Comment on above: GFR Calc Estimated GFR (MDRD) Non-Af Amer 62 mL/min >60 [facility] Comment on above: Non- GFR Calc Vitamin D 25-Hydroxy 17.7 ng/mL [facility] Comment on above: Vitamin D 25(OH) Sta tus Range Deficiency <20 ng/mL (50nmol/L) Insufficiency 20 - 30 ng/mL (50 - 75 nmol/L) Sufficiency 30 - 100 ng/mL (75 - 250 nmol/L) Toxicity >100 ng/mL (>250 nmol/L) Platelets bldOrdered By: Jeanmarie Teran on 11-15-2022 Platelets (Bld) [#/Vol] 273 10*3/uL 150-450 [facility] Serum or plasma albumin tarah urement (mass/volume)Ordered By: Eri Teran on 11-15-2022 Albumin [Mass/Vol] 3.6 g/dL 3.2-5.0 [facility] Serum or plasma albumin/glob ulin mass ratioOrdered By: Eri Teran on 11-15-2022 Albumin/Globulin [Mass ratio] 0.9 {ratio} 0.9-2.4 [facility] Serum or plasma calcium tarah urement (mass/volume)Ordered By: Eri Teran on 11-15-2022 Calcium [Mass/Vol] 9.4 mg/dL 8.5-10.1 [facility] Serum or plasma cholesterol in HDL measurement (mass/volume)Ordered By: Eri Teran on 11-15-2022 Cholesterol in HDL [Mass/Vol] 43 mg/dL >40 [facility] Comment on above: The drugs N-Acetylcy steine and Metamizole may falsely depress this assay. Reference Range HDL <40 mg/dL Low HDL Cholesterol HDL >or= 60 mg/dL High HDL Cholesterol Serum or plasma cholesterol in VLDL measurement (mass/volume)Ordered By: Eri Teran on 11-15-2022 Cholesterol in VLDL [Mass/Vol] 38 mg/dL 5-40 [facility] Serum or plasma creatinine m easurement (mass/volume)Ordered By: Eri Teran on 11-15-2022 Creatinine [Mass/Vol] 0.93 mg/dL 0.55-1.02 [facility] Comment on above: The validity of the calculated GFR & GFRAA in patients over 70 years has not been determined. Clinical correlation is essential. Serum or plasma low density lipoprotein (LDL) cholesterol measurement (mass/volume)Ordered By: Eri Teran on 11-15-2022 Cholesterol in LDL [Mass/Vol] 84 mg/dL 0-130 [facility] Serum or plasma urea nitroge n measurement (mass/volume)Ordered By: Eir Teran on 11-15-2022 Urea nitrogen [Mass/Vol] 34 mg/dL 7-18 [facility] Thin prep Papanicolaou smear with manual screeningOrdered By: Eri Teran on 11-15-2022 Thin prep Papanicolaou smear with manual screening 26 U/L 15-37 [facility] Thin prep Papanicolaou smear with manual screening 8 5-15 [facility] Culture, urineOrdered By: Catracho Teran on 11-02-2022 Bacteria identified Cx Nom (U) Mixed Gram Pos & Gram Neg Org [facility] Clinical Summary: HMSPatient IDon 06-07-2018 OOP Invalid Interpretation Code [facility] Work Phone: Clinical Summary: Scanned RO S Summaryon 06-07-2018 endocrine ROS Denies Invalid Interpretation Code [facility] Work Phone: genitourinary review of systems, E&M Complains Invalid Interpretation Code [facility] Work Phone: genitourinary system review of systems, comments Frequenent Urination Invalid Interpretation Code [facility] Work Phone: Lymphocytes Auto #/vol (Bld) Denies Invalid Interpretation Code [facility] Work Phone: Review of Systems Neurologic comment Numbness,Weakness Invalid Interpretation Code [facility] Work Phone: ROS cardiovascular E&M Denies Invalid Interpretation Code [facility] Work Phone: ROS ENT E&M Denies Invalid Interpretation Code [facility] Work Phone: ROS gastrointestinal E&M Denies Invalid Interpretation Code [facility] Work Phone: ROS general E&M Denies Invalid Interpretation Code [facility] Work Phone: ROS Musculoskeletal comments Muscle Weakness,Pain,Stif fness Invalid Interpretation Code [facility] Work Phone: ROS musculoskeletal E&M Complains Invalid Interpretation Code [facility] Work Phone: ROS neurological E&M Complains Invalid Interpretation Code [facility] Work Phone: ROS Psych comment Difficulty Sleeping Invalid Interpretation Code [facility] Work Phone: ROS psychiatric E&M Complains Invalid Interpretation Code [facility] Work Phone: ROS pulmonary E&M Denies Invalid Interpretation Code [facility] Work Phone: ROS skin E&M Denies Invalid Interpretation Code [facility] Work Phone: Office Visit: New - 1st visi t with practice, Rm: 42on 06-07-2018 NEGATED: Highlighted rowMRI (magnetic resonance imaging) history of the back on 05/29/2018 at [place] Invalid Interpretation Code [facility] Work Phone: NEGATED: Highlighted rowProtein mass conc Done Invalid Interpretation Code [facility] Work Phone: Clinical Lists Update: Prelo ad Extendedon 06-06-2018 Tobacco smoking status NHIS Tobacco smoking status NHIS Invalid Interpretation Code [facility] Work Phone: Culture, urine Bacteria identified Cx Nom (U) Presumptive E. coli [facility] Work Phone: Vital Signs Date Time Vital Sign Value Performing Clinician Facility 02-07-2024 22:32-0400 Body temperature 97.8 [degF] [facility] 02-07-2024 22:32-0400 Diastolic blood pressure 87 mm[Hg] [facility] 02-07-2024 22:32-0400 Heart rate 78 /min [facility] 02-07-2024 22:32-0400 Respiratory rate 16 /min [facility] 02-07-2024 22:32-0400 SaO2% (BldA) [Mass fraction] 99 % [facility] 02-07-2024 22:32-0400 Systolic blood pressure 169 mm[Hg] [facility] 02-07-2024 17:55-0400 Body height 157.48 cm [facility] 02-07-2024 17:55-0400 Body mass index (BMI) [Ratio] 29.3 kg/m2 [facility] 02-07-2024 17:55-0400 Body weight 72.75 kg [facility] 11-12-2023 10:51-0500 Diastolic blood pressure 76 mm[Hg] [facility] 11-12-2023 10:51-0500 Heart rate 49 /min [facility] 11-12-2023 10:51-0500 Respiratory rate 16 /min [facility] 11-12-2023 10:51-0500 SaO2% (BldA) [Mass fraction] 98 % [facility] 11-12-2023 10:51-0500 Systolic blood pressure 133 mm[Hg] [facility] 11-12-2023 09:24-0500 Body height 157.48 cm [facility] 11-12-2023 09:24-0500 Body mass index (BMI) [Ratio] 30.2 kg/m2 [facility] 11-12-2023 09:24-0500 Body temperature 97.6 [degF] [facility] 11-12-2023 09:24-0500 Body weight 75.11 kg [facility] NEGATED: Highlighted [id number] 14:25-0400 BMI (Body Mass Index) 30.29 kg/m2 [facility] Work Phone: NEGATED: Highlighted [id number] 14:25-0400 BP Diastolic 83 mm[Hg] [facility] Work Phone: NEGATED: Highlighted [id number] 14:25-0400 BP Diastolic 82 mm[Hg] [facility] Work Phone: NEGATED: Highlighted [id number] 14:25-0400 BP Systolic 148 mm[Hg] [facility] Work Phone: NEGATED: Highlighted [id number] 14:250400 BP Systolic 138 mm[Hg] [place] [facility] Work Phone: NEGATED: Highlighted [id number] 14:25040 [facility] Work Phone: NEGATED: Highlighted [id number] 14:25040 [facility] Work Phone: NEGATED: Highlighted [id number] 14:25-040 Pulse (Heart Rate) 63 /min [facility] Work Phone: NEGATED: Highlighted [id number] 14:25-040 Weight 74.84 kg [facility] Work Phone: NEGATED: Highlighted [id number] 14:040 Weight 75 kg [facility] Work Phone: Encounters Encounter Date Encounter Type Care Provider Facility Start: 07-07-2025 ambulatory [facility] Facility: [facility] Start: 04-22-2025 ambulatory [facility] Facility: [facility] Start: 04-16-2025 Encounter for preprocedural cardiovascular examination [facility] Start: 02-17-2025 End: 02-17-[address] Morenita Jennings MD Work Phone: [facility] Work Phone: Start: 02-17-2025 End: 02-17-[address] Aime Pedro MD -[facility]iology [place] Work Phone: Start: 02-17-2025 End: 02-17-2025 ambulatory Morenita Jennings Facility:[facility] Start: 05-20-2024 End: 05-20-2024 ambulatory Morenita Jennings Facility:[facility] Start: 02-07-2024 End: 02-07-2024 Emergency department patient visit [facility]Emergency Department Work Phone: Start: 11-12-2023 End: 11-12-2023 Emergency department patient visit [facility] Work Phone: Start: 11-15-2022 Patient encounter procedure [facility]-Laboratory, Elliott Conner Start: 11-01-2022 End: 11-01-2022 ambulatory [facility] Work Phone: Start: 11-01-2022 End: 11-01-2022 Patient encounter procedure [facility]Laboratory, Specimen Start: 06-28-2022 End: 06-28-2022 ambulatory [facility] Work Phone: Start: 06-28-2022 End: 06-28-2022 Patient encounter procedure [facility]Laboratory, Specimen Start: 06-02-2022 End: 06-02-2022 ambulatory [facility] Work Phone: Start: 06-02-2022 End: 06-02-2022 Patient encounter procedure [facility]-Labor[facility], Specimen Procedures Date Procedure Procedure Detail Performing Clinician Start: 02-17-2025 X-ray of knee, four or more views Dr[address] Morenita Jennings MD Work Phone: Start: 02-07-2024 Plain x-ray of hand Start: 02-07-2024 CT cervical spine wi thout contrast Start: 02-07-2024 CT of face Start: 02-07-2024 CT of head without contrast Urine culture Urine culture Plan of Treatment Date Care Activity Detail Author Start: 11-12-2023 [facility] Microalbumin [Mass/v olume] in Urine [facility] Patient Education [facility] Work Phone: Patient referral [facility] Work Phone: Immunizations Immunization Date Immunization Notes Care Provider Ema vega 08-08-2014 Influenza virus vaccine [facility] No information available. Noris Rios [facility] [place] [facility] Work Phone: Payers Date Payer Category Payer Medicare [id number] 2024 Self-pay [id number] Medicare MEDICARE PART A B [id number] Unknown [id number] Unknown [id number] Unknown [id number] Unknown [id number] Social History Date Type Detail Facility Start: 08-06-2021 End: 02-07-2024 Assertion Unknown if ever smoked [facility] Work Phone: Start: 1940 Sex Assigned At Female W [facility] Start: 09-30-2014 Rare [facility] Start: 09-30-2014 None [facility] Start: 09-30-2014 Spouse/ Signif icant Other [facility] Start: 09-30-2014 Non-smoker [facility] Start: 02-12-2024 Tobacco smoking stat us NJIS Never smoked tobacco (finding) [facility] Mental Status Date Assessment Result Facility 11-12-2023 Cognitive function Level Of Cons ciousness Awake;Alert;Appropriate;Follow s Commands [facility] Work Phone: Radiology Diagnostic study note 02-20-2025 Note Date & Type Note Facility 02-20-2025 Radiology Diagnostic study note [facility] [address] [place] [address] Knee 4 or More Views MR#: [id number] Acct: [id number] Name: ANDREYADRIANNAHILDA BLANC Rep #: [id number] : 1940 F 84 From: Johanny Weston MD PCP: Dr. Morenita Jennings MD Status: REG CLI Study:Knee 4 or More Views Date of Exam: 02/17/25 Exam# [id number] Ordering Dr: Janet Pedro MD PROCEDURE: KNEE [...] or injury. Correlate with history. Reading Location: [id number] CC: Dr. Morenita Jennings MD; Dr. Aime Pedro MD ~ Travel Pta: Signed [facility] Evaluation note Note Date & Type Note Facility Evaluation note No assessment information availa [facility] Work Phone: Reason for referral (narrative) Note Date & Type Note Facility Reason for referral (narrative) No reason for referral information available [facility] Work Phone: Instructions Instruction Description Start Date Patient advised to follow-up with Primary Care Physician for BMI management. Advance Directives No Advanced Directives Records Found Advance Directive Response Recorded Date/ Time Advance Directives Yes November 14, 2014 1:36pm Living Will Yes August 06 7:38pm Power of Fire Safety Inspector Yes August 06, 2021 7:38pm Advance Directive Response Recorded Date/ Time Advance Directives Yes November 14, 2014 12:36pm Living Will Yes August 06 6:38pm Power of Fire Safety Inspector Yes August 06, 2021 6:38pm Advance Directive Response Recorded Date/ Time Advance Directives Yes November 14, 2014 12:36pm Living Will Yes November 12 9:46am Power of Fire Safety Inspector Yes November 12, 2023 9:46am Name of Medical Power of Fire Safety Inspector [email or web address] November 12, 2023 9:46am Advance Directive Response Recorded Date/ Time Name of Medical Power of Fire Safety Inspector [email or web address] [email or web address] November 12, 2023 10:46am Name of Medical Power of Fire Safety Inspector . February 07, 2024 6:55pm Advance Directives Yes November 14, 2014 1:36pm Living Will Yes February 07, 2024 6: 55pm Power of Fire Safety Inspector Yes February 07, 2024 6:55pm Advance Directive [...] section and content) DATE CREATED AUTHOR 04/19/2025 [facility] FOR RECORDS PERTAINING TO PATIENTS WHO [...] BE BASED ON THE PRIMARY CLINICAL RECORDS. [employer] provides no warranty or guarantee of the accuracy or completeness of information in this document.
== END | disposition home or self-care (01) ==
LOC: PSN 10:03
PROVIDERS: PCP Family Medicine; Referring Provider Specialist; Visit Provider Specialist
DX: Z01.818 Encounter for other preprocedural examination (principal)
CPT/HCPCS: 93005

== ENCOUNTER → 2025-07-01 | Outpatient (CLI) | payer MEDICARE, SELFPAY ==
--- NOTE | 2025-07-01 14:49 | CT_ITS ---
PROCEDURE: EXTREMITY LOWER WITHOUT CONTRA 07/01/2025 REASON FOR EXAM: CITLALI PROTOCAL, RIGHT KNEE TECHNIQUE: Procedure Code: CTELWO Modality: CT Procedure: EXTREMITY LOWER WITHOUT CONTRA Coronal and Sagittal reconstruction series were provided. CONTRAST: None One or more dose reduction techniques were used (e.g., Automated exposure control, adjustment of the mA and/or kV according to patient size, use of iterative reconstruction technique). RADIATION DOSE SUMMARY: DLP: 1487 mGycm COMPARISON: None FINDINGS: There is moderate osteoarthritis, most severe in the medial compartment, with subcortical cyst formation and osteophyte formation. There is a trace joint effusion. There is no visible loose body. Is no acute fracture or dislocation. There is no suspicious lytic or blastic lesion. Vascular calcifications are noted. CT/Extremity Lower without Contra IMPRESSION: There is moderate osteoarthritis, most severe in the medial compartment, with s ubcortical cyst formation and osteophyte formation. There is a trace joint effusion. Reading Location: [facility]
--- OUTSIDE RECORDS SUMMARY | 2025-07-01 17:38 | XMS RPT_ITS | CCD ---
Author Organization [facility] Care Team Providers Care Textiles Printer Name Role Phone James MUÑOZ Francesco Pedroza Unavailable Michaela SOFIA, Dr. Morenita Wheeler Primary Care Provider [phone] Aime Pedro MD Attending Provider [phone] Willis SOFIA, Aime Referring Provider [phone] Allison SOFIA, Dr. Chung Attending Provider Dr. Sheldon Cooper MD Referring Provider Willis SOFIA, Aime Primary Care Provider Sheldon Cooper Attending Unavailable Willis, Aime Primary Care Unavailable Sheldon Cooper Referring Unavailable Willis, Aime Referring Unavailable Aime Pedro Attending Unavailable Morenita Jennings Primary Care Unavailable Sheldon Cooper Attending Unavailable Willis, Aime Primary Care Unavailable Sheldon Cooper Referring Unavailable Aiden Alvarez Attending Unavailable Willis, Aime Primary Care Unavailable Sheldon Cooper Referring Unavailable Sheldon Cooper Attending Unavailable Wily Khan Consulting Unavailable Willis, Aime Primary Care Unavailable Sheldon Cooper Referring Unavailable Medications Current Medications Medication Drug Class(es) Dates Sig (Normalized) Sig (Original) hydroCHLOROthiazide 12.5 mg / lisinopril 20 mg oral tablet (8 sources) Thiazide Diuretic, Angiotensin Converting Enzyme Inhibitor [...] hours as needed for pain HYDROCODONE-ACETAM INOPHEN [id number] Francesco Ramirez DO acetaminophen 325 mg / oxyCODONE hydrochloride 7.5 mg oral tablet (1 source) Opioid Agonist Start: 06-07-2018 take 1 tablet by mouth once as needed, then take 8 tablets by mouth as needed PERCOCET 7.5-325 MG TABS 1 po q8 prn OXYCODONE-ACETAMIN OPHEN [id number] Francesco Ramirez DO carvedilol 12.5 mg oral tablet (14 sources) alpha-Adrenergic Ihsan, beta-Adrenergic Ihsan Start: 04-11-2017 End: 02-12-2024 take 1 tablet by mouth twice daily at mealtime Carvedilol 12.5 mg tablet Discontinued 12.5 mg PO TWICE A DAY 60 0 November 12, 2023 1:00am February 12, 2024 8:18am must administer with a meal/food 24 hr oxybutynin chloride 5 mg extended release oral tablet (7 sources) Cholinergic Muscarinic Antagonist Start: 08-06-2021 End: 02-12-2024 take 1 tablet by mouth once daily Oxybutynin Chloride 5 mg Tablet Extended Release 24hr Discontinued 5 mg PO DAILY August 06, 2021 12:00am February 12, 2024 8:18am rosuvastatin calcium 5 mg oral tablet (8 sources) HMG-CoA Reductase Inhibitor Start: 06-06-2018 ROSUVASTATIN CALCIUM 5 MG TABS 1 tablet daily ROSUVASTATIN CALCIUM [id number] Janet Diehl RN GERIATRIC Start: 11-26-2017 End: 02-12-2024 take 1 tablet by mouth at bedtime Rosuvastatin (Crestor) 5 MG tablet Discontinued 5 mg PO AT BEDTIME November 26, 2017 1:00am February 12, 2024 8:18am zolpidem tartrate 5 mg oral tablet (8 sources) gamma-Aminobutyric Acid-ergic Agonist Start: 06-06-2018 ZOLPIDEM TARTRATE 5 MG TABS 1 tablet at bedtime ZOLPIDEM TARTRATE [id number] Janet Diehl RN GERIATRIC Start: 05-29-2018 End: 02-12-2024 take 1 tablet by mouth at bedtime as needed for sleep Zolpidem 5 MG tablet Discontinued 5 mg PO AT BEDTIME NEEDED as needed for Sleep May 29, 2018 12:00am February 12, 2024 8:18am Problems Active Problems Problem Classification Problem Date Documented Date Episodic/Chronic Essential hypertension (4 sources) Hypertensive disorder; Translations: [Essential (primary) hypertension] 11-12-2023 Chronic Fracture of lower limb (7 sources) Closed fracture of ankle; Translations: [Other fracture of left lower leg, initial encounter for closed fracture] 11-11-2015 Episodic Fracture of upper limb (2 sources) Closed fracture of metacarpal bone; Translations: [Unspecified fracture of unspecified metacarpal bone, initial encounter for closed fracture] 02-12-2024 Episodic Osteoarthritis (1 source) Unilateral primary osteoarthritis, right knee; Translations: [Unilateral primary osteoarthritis, right knee] Onset: 06-23-2025 Chronic Other acquired deformities (1 source) Spondylolisthesis, lumbar region; Translations: [Spondylolisthesis, lumbar region] Onset: 06-07-2018 06-07-2018 Episodic Other circulatory disease (7 sources) Syncope due to orthostatic hypotension; Translations: [Orthostatic hypotension] 08-14-2021 Episodic Skin and subcutaneous tissue infections (7 sources) Cellulitis of face; Translations: [Cellulitis of [...] Classification Problem Date Documented Da te Episodic/Chronic Other non-traumatic joint disorders (1 source) Pain in unspecified knee; Translations: [Pain in unspecified knee] Onset: 02-21-2025 Episodic Unclassified (1 source) Problem Results Test Name Value Interpretation Reference Range Facility MRSA/SAID NASAL SCREENon MRSA+SAID SCRN Reason for Exam: Surgery MRSA MRSA Positive A S. AUREUS S. aureus PositiveA Normal [facility] Comment on above: Performed By: #### L 100.0100, L501.1800, M100.651, L500.2500 #### [facility] [address] [place], [address] Albumin, Serumon 06-10-2025 Albumin [Mass/Vol] 4.0 g/dL Normal 3.4-4.8 [facility] Comment on above: Performed By: #### L 100.0100, L501.1800, M100.651, L500.2500 #### [facility] [address] [place], [address] Basic Metabolic Profile (BMP )on 06-10-2025 BUN/CRE 41.6 RATIO High 10-20 [facility] Comment on above: Performed By: #### L 100.0100, L501.1800, M100.651, L500.2500 #### [facility] [address] [place], [address] Calcium [Mass/Vol] 9.5 mg/dL Normal 7.6-11.0 [facility] Comment on above: Performed By: #### L 100.0100, L501.1800, M100.651, L500.2500 #### [facility] [address] [place], [address] Chloride [Moles/Vol] 108 mmol/L Normal 98-108 [facility] Comment on above: Performed By: #### L 100.0100, L501.1800, M100.651, L500.2500 #### [facility] [address] [place], [address] CO2 [Moles/Vol] 22.1 mmol/L Normal 21.0-32.0 [facility] Comment on above: Performed By: #### L 100.0100, L501.1800, M100.651, L500.2500 #### [facility] [address] [place], [address] Creatinine [Mass/Vol] 0.94 mg/dL Normal 0.70-1.20 [facility] Comment on above: Performed By: #### L 100.0100, L501.1800, M100.651, L500.2500 #### [facility] [address] [place], [address] GAP 11 Normal 5-15 [facility] Comment on above: Performed By: #### L 100.0100, L501.1800, M100.651, L500.2500 #### [facility] [address] [place], [address] GFR/1.73 sq M.predicted among non-blacks MDRD (S/P/Bld) [Vol rate/Area] 61 mL/min/{1.73_m2} Normal >60 [facility] Comment on above: Result Comment: mL/m in/1.73m2 CKD-EPI Creatinine Equation (2020) Performed By: #### L 100.0100, L501.1800, M100.651, L500.2500 #### [facility] [address] [place], [address] Glucose [Mass/Vol] 102 mg/dL High 70-99 [facility] Comment on above: Performed By: #### L 100.0100, L501.1800, M100.651, L500.2500 #### [facility] [address] [place], [address] Potassium [Moles/Vol] 4.3 mmol/L Normal 3.3-5.1 [facility] Comment on above: Performed By: #### L 100.0100, L501.1800, M100.651, L500.2500 #### [facility] [address] [place], [address] Sodium [Moles/Vol] 141 mmol/L Normal 133-145 [facility] Comment on above: Performed By: #### L 100.0100, L501.1800, M100.651, L500.2500 #### [facility] [address] [place], [address] Urea nitrogen [Mass/Vol] 39 mg/dL High 4-19 [facility] Comment on above: Performed By: #### L 100.0100, L501.1800, M100.651, L500.2500 #### [facility] [address] [place], [address] CBC W/Diff, Automatedon 09-0 2-2024 Absolute Lymph 1.28 X10 3/uL Normal 0.83-4.51 [facility] Comment on above: Performed By: #### L 100.0100, L501.1800, M100.651, L500.2500 #### [facility] [address] [place], [address] Absolute Neut 5.4 X10 3/uL Normal 2.0-7.7 [facility] Comment on above: Performed By: #### L 100.0100, L501.1800, M100.651, L500.2500 #### [facility] [address] [place], [address] Basophils/100 WBC (Bld) 0.8 % Normal 0-1 [facility] Comment on above: Performed By: #### L 100.0100, L501.1800, M100.651, L500.2500 #### [facility] [address] [place], [address] Eosinophils/100 WBC (Bld) 2.7 % Normal 0-5 [facility] Comment on above: Performed By: #### L 100.0100, L501.1800, M100.651, L500.2500 #### [facility] [address] [place], [address] Erythrocyte distribution width (RBC) [Ratio] 12.8 % Normal 11.6-14.6 [facility] Comment on above: Performed By: #### L 100.0100, L501.1800, M100.651, L500.2500 #### [facility] [address] [place], [address] Hematocrit (Bld) [Volume fraction] 39.8 % Normal 37-47 [facility] Comment on above: Performed By: #### L 100.0100, L501.1800, M100.651, L500.2500 #### [facility] [address] [place], [address] Hemoglobin (Bld) [Mass/Vol] 13.0 g/dL Normal 12.0-15.0 [facility] Comment on above: Performed By: #### L 100.0100, L501.1800, M100.651, L500.2500 #### [facility] [address] [place], [address] IG% 0.300 Normal 0.0-0.9 [facility] Comment on above: Result Comment: IG% - Immature Granulocytes (promyelocytes, myelocytes and metamyelocytes) > 1% indicates that a LEFT SHIFT is Present. Performed By: #### L 100.0100, L501.1800, M100.651, L500.2500 #### [facility] [address] [place], [address] Lymphocytes/100 WBC (Bld) 17.0 % Low 19-41 [facility] Comment on above: Performed By: #### L 100.0100, L501.1800, M100.651, L500.2500 #### [facility] [address] [place], [address] MCH (RBC) [Entitic mass] 31.9 pg Normal 27.0-32.0 [facility] Comment on above: Performed By: #### L 100.0100, L501.1800, M100.651, L500.2500 #### [facility] [address] [place], [address] MCHC (RBC) [Mass/Vol] 32.7 g/dL Normal 32-36 [facility] Comment on above: Performed By: #### L 100.0100, L501.1800, M100.651, L500.2500 #### [facility] [address] [place], [address] MCV (RBC) [Entitic vol] 97.5 fL Normal 81-99 [facility] Comment on above: Performed By: #### L 100.0100, L501.1800, M100.651, L500.2500 #### [facility] [address] [place], [address] Monocytes/100 WBC (Bld) 7.6 % Normal 0-10 [facility] Comment on above: Performed By: #### L 100.0100, L501.1800, M100.651, L500.2500 #### [facility] [address] [place], [address] Neutrophils/100 WBC (Bld) 71.6 % High 47-70 [facility] Comment on above: Performed By: #### L 100.0100, L501.1800, M100.651, L500.2500 #### [facility] [address] [place], [address] Nucleated RBC (Bld) [#/Vol] 0 10*3/uL Normal 0-5 [facility] Comment on above: Performed By: #### L 100.0100, L501.1800, M100.651, L500.2500 #### [facility] [address] [place], [address] Platelet mean volume (Bld) [Entitic vol] 9.5 fL Normal 6.2-12.0 [facility] Comment on above: Performed By: #### L 100.0100, L501.1800, M100.651, L500.2500 #### [facility] [address] [place], [address] Platelets (Bld) [#/Vol] 349 10*3/uL Normal 150-450 [facility] Comment on above: Performed By: #### L 100.0100, L501.1800, M100.651, L500.2500 #### [facility] [address] [place], [address] RBC (Bld) [#/Vol] 4.08 10*6/uL Low 4.2-5.4 [facility] Comment on above: Performed By: #### L 100.0100, L501.1800, M100.651, L500.2500 #### [facility] [address] [place], [address] RDW SD 45.3 fl High 35.1-43.9 [facility] Comment on above: Performed By: #### L 100.0100, L501.1800, M100.651, L500.2500 #### [facility] [address] [place], [address] WBC (Bld) [#/Vol] 7.5 10*3/uL Normal 4.4-11.0 [facility] Comment on above: Performed By: #### L 100.0100, L501.1800, M100.651, L500.2500 #### [facility] [address] [place], [address] MR/PAT.ELFEGOon 06-10-2025 MR/PAT.ELFEGO [facility] Medical Records Department [address] [place] [address] PAT - Anesthesia 06/10/25 1031 MR#: [id number] Acct: [id number] Name: ADRIANNA BALDERAS Rep #: [id number] : 1940 85 From: Wily Khan MD PCP: Dr. 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 When Was Last Pacemaker Check QUESTION #4 FULL TEXT: You/Your Family Experience fever (hyperthermia) with Anesthesia Last Oral Intake Last Oral intake: Last Oral Intake NPO since Meds taken in AM with sips of water? Meds patient instructed to take am of surgery PONV PONV - balloon pilot: PONV - balloon pilot Female Yes 06/10/25 08:12 HX of Motion Sickness No 06/10/25 08:12 HX of N/V After Surgery Yes 06/10/25 08:12 Non-Smoker Yes 06/10/25 08:12 Duration of Surgery greater Yes 06/10/25 08:12 than 60 minutes Number of Risk Factors 4 06/10/25 08:12 PONV Score Severe Risk 06/10/25 08:12 Height Weight Height Weight: Anesthesia: Height Weight Height 5 ft 2 in 02/07/24 17:55 Respiratory Assessment Respiratory Assessment - balloon pilot: Respiratory Tract Infection Hx - balloon pilot Hx Respiratory Tract Infection No 06/10/25 08:12 STOP Sleep Apnea STOP Sleep Apnea - balloon pilot: STOP Sleep Apnea - balloon pilot Hx Hypertension Yes 06/10/25 08:12 Hx Sleep Apnea Yes 06/10/25 08:12 CPAP No 06/10/25 08:12 BIPAP No 06/10/25 08:12 Do you snore loudly (louder than talking or can be heard Do you often feel tired/ fatigued/ sleepy during daytime? Has anyone observed you stop breathing during sleep? STOP Results Positive 06/10/25 08:12 QUESTION #5 FULL TEXT : Do you snore loudly (louder than talking or can be heard through closed doors)? 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 Specify any problems Hx of Preganancy in last 3 No 06/10/25 08:12 Months Nurse Filling Out Transfusion [email or web address] 06/10/25 08:12 Questions: Date: 06/10/25 06/10/25 08:12 Time: 08:18 06/10/25 08:12 Patient unable to answer at this time (ie. confused, unrespo /Reproduct ion History /Reproduct simi History - balloon pilot: /Reproduct simi Hx- balloon pilot Hx Now Gestational Age (in weeks): EDC: Hx Hx Para Hx Section [facility] Medical History (Updated 06/10/25 @ 08:24 by Srini Snider) Wears glasses History of steroid therapy Injury of head and neck Sleep apnea Non-smoker History of pain when walking Fracture of metacarpal of left hand, closed High cholesterol HTN (hypertension) Home Medications ???Medication ???Instructions ???Recorded ???Last Taken ???Type lisinopril 20 1 ea PO DAILY 04/11/17 05/29/18 Hi story mg-hydrochlorothiaz carmita 12.5 mg tablet (Zestoretic) carvedilol 12.5 mg tablet 12.5 mg PO BID 02/12/24 Unknown Hi story cholecalciferol (vitamin D3) 25 25 mcg PO DAILY 06/10/25 Unknown H istory mcg (1,000 unit) capsule (Vitamin D3) meloxicam 7.5 mg tablet 7.5 mg PO BID 06/10/25 Unknown His tory rosuvastatin 5 mg tablet 5 mg PO DAILY 06/10/25 Unknown His tory Allergy/AdvReac Type Severity Reaction Status Date / Time No Known Allergies Allergy Verified 06/10/25 08:10 Surgical History ... Normal [facility] Magnesiumon 06-10-2025 Magnesium [Mass/Vol] 2.0 mg/dL Normal 1.5-2.2 [facility] Comment on above: Performed By: #### L 501.5200 #### [facility] [address] [place], [address] Electrocardiogram reportOrde red By: Aiden Alvarez on 04-23-2025 EKG study [facility] Cardiovascular Services [address] [place] [address] 12 Lead EKG 04/22/25 1016 MR#: [id number] Acct: [id number] Name: ADRIANNA BALDERAS Rep #:[id number] : 1940 85 From: Aiden talbot MD Attending Dr: Dr. Sheldon Cooper MD Status: REG CLI Ordering Dr: Sheldon Cooper MD Date: 0 04/22/25 Location: [facility] Sex: F C Admitted: Test Reason : PRE OP Blood Pressure : */* mmHG Vent. Rate : 53 BPM Atrial Rate : 53 BPM P-R Int : 184 ms QRS Dur : 80 ms QT Int : 434 ms P-R-T Axes : -15 -27 4 degrees QTcB Int : 407 ms Sinus bradycardia Voltage criteria for left ventricular hypertrophy Junctional ST depression, probably normal Abnormal ECG Confirmed by Aiden Alvarez ([id number]), newspaper managing editor BRIONNA VALLES ([id number]) on 04/23/2025 11:23:05 AM Referred By: Sheldon Cooper Confirmed By: Aiden Alvarez 04/23/25 1123 Date _ Aiden Alvarez MD CC: Dr. Aime Pedro MD; Dr. Sheldon Cooper MD ~ Signed [facility] Other 12 Lead EKGon 04-22-2025 12 Lead EKG [facility] Cardiovascular Services [address] [place] [address] 12 Lead EKG 04/22/25 1016 MR#: [id number] Acct: [id number] Name: ADRIANNA BALDERAS Rep #: [id number] : 1940 85 From: Aiden Alvarez MD Attending Dr: Dr. Sheldon Cooper MD Status: REG CLI Ordering Dr: Sheldon Cooper MD Date: 04/22/25 Location: [facility] Sex: F C Admitted: Test Reason : PRE OP Blood Pressure : */* mmHG Vent. Rate : 53 BPM Atrial Rate : 53 BPM P-R Int : 184 ms QRS Dur : 80 ms QT Int : 434 ms P-R-T Axes : -15 -27 4 degrees QTcB Int : 407 ms Sinus bradycardia Voltage criteria for left ventricular hypertrophy Junctional ST depression, probably normal Abnormal ECG Confirmed by Aiden Alvarez ([id number]), newspaper managing editor BRIONNA VALLES ([id number]) on 04/23/2025 11:23:05 AM Referred By: Sheldon Cooper Confirmed By: Aiden Alvarez 04/23/25 1123 Date Aiden Alvarez MD CC: Dr. Aime Pedro MD; Dr. Sheldon Cooper MD Signed Normal [facility] Knee 4 or More Viewson 02-17 Knee 4 or More Views [facility] Imaging Services [address] [facility] [place] [address] Knee 4 or More Views MR#: [id number] Acct: [id number] Name: ADRIANNA BALDERAS Rep #: [id number] : 1940 F 84 From: Frank Weston MD PCP: Dr. Morenita Jennings MD Status: REG CLI Study: Knee 4 or More Views Date of Exam: 02/17/25 Exam# [id number] Ordering Dr: Aime Pedro MD PROCEDURE: KNEE [...] or injury. Correlate with history. Reading Location: [id number] CC: Dr. Morenita Jennings MD; Dr. Aime Pedro MD Clock And Watch Hands Dipper: Signed Normal [facility] Absolute lymphocyte countOrd ered By: Lemoyne Unganna on 11-12-2023 Lymphocytes Auto (Unsp spec) [#/Vol] 1.24 10*3/uL 0.83-4.51 [facility] Automated lymphocyte count a s percentage of total leukocytesOrdered By: [facility] on 11-12-2023 Lymphocytes/100 WBC Auto (Unsp spec) 25.4 % 19-41 [facility] Basophil percentageOrdered B y: Lemoyne Unganna on 11-12-2023 Basophils/100 WBC (Bld) 0.6 % 0-1 [facility] Chloride [Moles/Vol] 113 mmol/L 98-107 [facility] Eosinophils/100 WBC (Bld) 10.4 % 0-5 [facility] Glucose [Mass/Vol] 139 mg/dL 74-106 [facility] Comment on above: Fasting Glucose resu lt greater than or equal to 126 mg/dL suggests DIABETES MELLITUS per A.D.A. criteria. Hemoglobin (Bld) [Mass/Vol] 14.2 g/dL 12.0-15.0 [facility] Monocytes/100 WBC (Bld) 8.8 % 0-10 [facility] Neutrophils (Bld) [#/Vol] 2.7 10*3/uL 2.0-7.7 [facility] Neutrophils/100 WBC (Bld) 54.6 % 47-70 [facility] Potassium [Moles/Vol] 3.5 mmol/L 3.5-5.1 [facility] Sodium [Moles/Vol] 141 mmol/L 136-145 [facility] WBC (Bld) [#/Vol] 4.9 10*3/uL 4.4-11.0 [facility] Determination of erythrocyte mean corpuscular volume (MCV)Ordered By: Nuno Jamil on 11-12-2023 MCV (RBC) [Entitic vol] 91.7 fL 81-99 [facility] Erythrocyte distribution wid th ratioOrdered By: Nuno Jamil on 11-12-2023 Erythrocyte distribution width (RBC) [Ratio] 13.3 % 11.6-14.6 [facility] Erythrocyte distribution wid th standard deviationOrdered By: Nuno Jamil on 11-12-2023 Erythrocyte distribution width (RBC) [Entitic vol] 45.2 fL 35.1-43.9 [facility] Hematocrit Auto (Bld) [Volum e fraction]Ordered By: Nuno Jamil on 11-12-2023 Hematocrit (Bld) [Volume fraction] 43.3 % 37-47 [facility] Immature granulocytes/100 WB C Auto (Bld)Ordered By: Nuno Jamil on 11-12-2023 Immature granulocytes/100 WBC (Bld) 0.200 % 0.0-0.9 [facility] Comment on above: IG% - Immature Granu locytes (promyelocytes, myelocytes and metamyelocytes) > 1% indicates that a LEFT SHIFT is Present. Laboratory - Chemistry and C hemistry - challengeOrdered By: Nuno Jamil on 11-12-2023 CO2 [Moles/Vol] 24.0 mmol/L 21.0-32.0 [facility] Urea nitrogen/Creatinine [Mass ratio] 31.7 mg/mg 10-20 [facility] Laboratory - Hematology and Cell countsOrdered By: Nuno Jamil on 11-12-2023 MCH (RBC) [Entitic mass] 30.1 pg 27.0-32.0 [facility] MCHC (RBC) [Mass/Vol] 32.8 g/dL 32-36 [facility] Nucleated RBC/100 WBC (Bld) [Ratio] 0 % 0-5 [facility] Platelets (Bld) [#/Vol] 294 10*3/uL 150-450 [facility] No Panel InformationOrdered By: Nuno Jamil on 11-12-2023 Estimated Creatinine Clearance Calc 47.57 ml/min [facility] Estimated GFR (MDRD) Amer 79 mL/min >60 [facility] Comment on above: GFR Calc Estimated GFR (MDRD) Non-Af Amer 65 mL/min >60 [facility] Comment on above: Non- GFR Calc Troponin I High Sensitivity 9 pg/mL 3.0-54.0 [facility] Comment on above: Please Note: New Bruna t Units and Gender Specific Reference Ranges. For more information see Policy Stat Procedure [place] High Sensitivity Troponin (TNIH) and attachments. Platelet mean volume Yamil-Ec ker (Bld) [Entitic vol]Ordered By: [facility] on 11-12-2023 Platelet mean volume (Bld) [Entitic vol] 9.5 fL 6.2-12.0 [facility] RBC Auto (Bld) [#/Vol]Ordere d By: Nuno Jamil on 11-12-2023 RBC (Bld) [#/Vol] 4.72 10*6/uL 4.2-5.4 [facility] Serum or plasma calcium tarah urement (mass/volume)Ordered By: [place] [facility] on 11-12-2023 Calcium [Mass/Vol] 9.5 mg/dL 8.5-10.1 [facility] Serum or plasma creatinine m easurement (mass/volume)Ordered By: [place] [facility] on 11-12-2023 Creatinine [Mass/Vol] 0.88 mg/dL 0.55-1.02 [facility] Comment on above: The validity of the calculated GFR & GFRAA in patients over 70 years has not been determined. Clinical correlation is essential. Serum or plasma urea nitroge n measurement (mass/volume)Ordered By: [place] [facility] on 11-12-2023 Urea nitrogen [Mass/Vol] 28 mg/dL 7-18 [facility] Thin prep Papanicolaou smear with manual screeningOrdered By: Nuno Jamil on 11-12-2023 Thin prep Papanicolaou smear with manual screening 4 5-15 [facility] Absolute lymphocyte countOrd ered By: Eri Teran on 11-15-2022 Lymphocytes Auto (Unsp spec) [#/Vol] 1.44 10*3/uL 0.83-4.51 [facility] Basophil percentageOrdered B y: Eri Teran on 11-15-2022 Basophils/100 WBC (Bld) 1.2 % 0-1 [facility] Bilirubin [Mass/Vol] 1.00 mg/dL 0.20-1.00 [facility] Comment on above: For patients on eltr ombopag therapy, use of Dimension [place] TBIL is not recommended. Chloride [Moles/Vol] 114 mmol/L 98-107 [facility] Cholesterol [Mass/Vol] 165 mg/dL <200 [facility] Comment on above: <200 mg/dL Desirable 200-240 mg/dL Borderline >240 mg/dL High Risk Eosinophils/100 WBC (Bld) 3.5 % 0-5 [facility] Glucose [Mass/Vol] 117 mg/dL 74-106 [facility] Comment on above: Fasting Glucose resu lt from 100 to 125 mg/dL suggests IMPAIRED HOMEOSTASIS per A.D.A. criteria. Neutrophils (Bld) [#/Vol] 3.0 10*3/uL 2.0-7.7 [facility] Neutrophils/100 WBC (Bld) 58.5 % 47-70 [facility] Potassium [Moles/Vol] 3.8 mmol/L 3.5-5.1 [facility] Protein [Mass/Vol] 7.8 g/dL 6.4-8.2 [facility] Sodium [Moles/Vol] 143 mmol/L 136-145 [facility] Triglyceride [Mass/Vol] 188 mg/dL <199 [facility] Comment on above: The drugs N-Acetylcy steine and Metamizole may falsely depress this assay.Serum Triglycerides Reference Interval Normal <150 mg/dL Borderline high 150 - 199 mg/dL High 200 - 499 mg/dL Very High > or = 500 mg/dL WBC (Bld) [#/Vol] 5.1 10*3/uL 4.4-11.0 [facility] Blood erythrocytes count (nu mber/volume)Ordered By: Eri Teran on 11-15-2022 RBC (Bld) [#/Vol] 4.62 10*6/uL 4.2-5.4 [facility] Blood hemoglobin measurement (mass/volume)Ordered By: Eri Teran on 11-15-2022 Hemoglobin (Bld) [Mass/Vol] 14.3 g/dL 12.0-15.0 [facility] Blood lymphocytes/100 leukoc ytesOrdered By: Eri Teran on 11-15-2022 Lymphocytes/100 WBC (Bld) 28.0 % 19-41 [facility] Blood monocytes/100 leukocyt esOrdered By: Eri Teran on 11-15-2022 Monocytes/100 WBC (Bld) 8.6 % 0-10 [facility] Blood platelet mean volumeOr dered By: Eri Teran on 11-15-2022 Platelet mean volume (Bld) [Entitic vol] 9.9 fL 6.2-12.0 [facility] Determination of erythrocyte mean corpuscular volume (MCV)Ordered By: Eri Teran on 11-15-2022 MCV (RBC) [Entitic vol]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
== END | disposition home or self-care (01) ==
LOC: CT 14:43
PROVIDERS: PCP Family Medicine; Referring Provider Specialist; Visit Provider Specialist
DX: M17.11 Unilateral primary osteoarthritis, right knee (principal); M21.161 Varus deformity, not elsewhere classified, right knee
CPT/HCPCS: 73700

== ENCOUNTER 2025-07-07 06:59 | Observation (INO) | payer MEDICARE, SELFPAY ==
[2025-06-10 10:24] LABS: Hematocrit 39.8 % (37-47); Hemoglobin 13.0 g/dL (12.0-15.0); Immature Granulocytes Count 0.020 X10^3/uL (0.0-0.0); Mean Corp Hgb Conc 32.7 g/dL (32-36); Mean Corpuscular Volume 97.5 fL (81-99); Mean Platelet Vol. 9.5 fl (6.2-12.0); NRBC Flagged by Analyzer 0 % (0-5); Platelet Count 349 K/mm3 (150-450); RBC Distribution Width CV 12.8 % (11.6-14.6); RBC Distribution Width SD 45.3 fl (35.1-43.9); Red Blood Count 4.08 M/mm3 (4.2-5.4); White Blood Count 7.5 K/mm3 (4.4-11.0)
--- NOTE | 2025-06-10 10:31 | PAT.ANE_ITS ---
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 When Was Last Pacemaker Check QUESTION #4 FULL TEXT: You/Your Family Experience fever (hyperthermia) with Anesthesia Last Oral Intake Last Oral intake: Last Oral Intake NPO since Meds taken in AM with sips of water? 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: PONV - recyclable materials distributor Female Yes 06/10/25 08:12 HX of Motion Sickness No 06/10/25 08:12 HX of N/V After Surgery Yes 06/10/25 08:12 Non-Smoker Yes 06/10/25 08:12 Duration of Surgery greater Yes 06/10/25 08:12 than 60 minutes Number of Risk Factors 4 06/10/25 08:12 PONV Score Severe Risk 06/10/25 08:12 Height & Weight Height & Weight: Anesthesia: Height & Weight Height 5 ft 2 in 02/07/24 17:55 Respiratory Assessment Respiratory Assessment - recyclable materials distributor: Respiratory Tract Infection Hx - recyclable materials distributor Hx Respiratory Tract Infection No 06/10/25 08:12 STOP Sleep Apnea STOP Sleep Apnea - recyclable materials distributor: STOP Sleep Apnea - recyclable materials distributor Hx Hypertension Yes 06/10/25 08:12 Hx Sleep Apnea Yes 06/10/25 08:12 CPAP No 06/10/25 08:12 BIPAP No 06/10/25 08:12 Do you snore loudly (louder than talking or can be heard Do you often feel tired/ fatigued/ sleepy during daytime? Has anyone observed you stop breathing during sleep? STOP Results Positive 06/10/25 08:12 QUESTION #5 FULL TEXT : Do you snore loudly (louder than talking or can be heard through closed doors)? 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 Specify any problems Hx of Preganancy in last 3 No 06/10/25 08:12 Months Nurse Filling Out Transfusion [id number] 06/10/25 08:12 & Questions: Date: 06/10/25 06/10/25 08:12 Time: 08:18 06/10/25 08:12 Patient unable to answer at this time (ie. 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 materials distributor: /Reproductive Hx- recyclable materials distributor Hx Now Gestational Age (in weeks): EDC: Hx Hx Para Hx Section SAB PFSH Medical History (Updated 06/10/25 @ 08:24 by Srini Snider) Wears glasses History of steroid therapy Injury of head and neck Sleep apnea Non-smoker History of pain when walking Fracture of metacarpal of left hand, closed High cholesterol HTN (hypertension) Home Medications ?Medication ?Instructions ?Recorded ?Last Taken ?Type lisinopril 20 1 ea PO DAILY 04/11/1705/29 History mg-hydrochlorothiazide 12.5 mg tablet (Zestoretic) carvedilol 12.5 mg tablet 12.5 mg PO BID 02/12/24 Unkn own History cholecalciferol (vitamin D3) 25 25 mcg PO DAILY Unknown History mcg (1,000 unit) capsule (Vitamin D3) meloxicam 7.5 mg tablet 7.5 mg PO BID 06/10/25 Unkno wn History rosuvastatin 5 mg tablet 5 mg PO DAILY 06/10/25 Unkno wn History Allergy/AdvReac Type Severity Reaction Status Date / Time No Known Allergies Allergy Verified 06/10/25 08:10 Surgical History History of ankle surgery Hx of cholecystectomy History of tonsillectomy and adenoidectomy History of total hysterectomy with no history of abnormal cervical Papanicolaou smear Social History (Updated 02/12/24 @ 08:20 by Mary Anne Land MA) household members: none and other details: Smoking Status: Never smoker alcohol intake: current alcohol intake frequency: holidays/special occasions only Audit: Pertinent Findings Pertinent Findings EKG Perinent findings: April 22, 2025. Sinus bradycardia at 53 bpm. Voltage criteria from [facility]. Junctional ST depression, probably normal. Recommendation Anesthesia Recommendation Anesthesia recommendation: OPTIMIZED for anesthesia
[2025-06-10 11:25] LABS: Albumin, Serum 4.0 g/dL (3.4-4.8); Anion Gap 11 (5-15); BUN 39 mg/dL (4-19); BUN/Creat Ratio 41.6 RATIO (10-20); Calcium,Total 9.5 mg/dL (7.6-11.0); Carbon Dioxide 22.1 mmol/L (21.0-32.0); Chloride 108 mmol/L (98-108); Glucose 102 mg/dL (70-99); Potassium 4.3 mmol/L (3.3-5.1)
[2025-06-10 12:14] LABS: Magnesium 2.0 mg/dL (1.5-2.2)
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
[2025-07-07] VITALS (18 sets, daily range): BP systolic 107–167; BP diastolic 59–96; PULSE 56–72; RESP 16–18; TEMP 36.1–36.7; O2SAT 88–100; BMI 28.9
--- NOTE | 2025-07-07 06:59 | RAD_ITS ---
PROCEDURE: KNEE 1 OR 2 VIEWS 07/07/2025 REASON FOR EXAM: TKA TECHNIQUE: Procedure Code: RADK Modality: DX Procedure: KNEE 1 OR 2 VIEWS Two views of the right knee COMPARISON: February 18, 2020 FINDINGS: There is a total knee prosthesis in position. Surgical albina and soft tissue air noted consistent with recent surgery. The hardware is aligned. Vascular calcifications are noted. RAD/Knee 1 or 2 Views IMPRESSION: Hardware in position. Reading Location: [facility]
[2025-07-07] MEDS: LR 1,000 ML - BOLUS PREOP 999 ML IV (09:14)
[2025-07-07] MEDS: Magnesium 1 GM over 15 mins IV (09:14)
--- NOTE | 2025-07-07 09:35 | PCM.PRE.AN2 ---
ASA Classification* ASA Classification ASA Classification: 3 Assessment & Plan Anesthesia* Anesthesia Assessment Anesthesia Assessment: Discussed sedation and/or anesthesia options, risks, benefits, and alternatives with patient/parents/legal guardian/POA. Questions invited. The patient/parents/legal guardian/POA seems to understand and agrees to proceed with anesthesia plan. Reviewed the physical assessment, medical history, allergy history and patient home medications list prior to surgery/procedure/anesthetic and documented any changes. Performed airway and anesthesia risk assessments. Procedural Plan Add'l anesthesia plan details: Adductor; spinal with mac Anesthesia Type Anesthesia Type: Spinal History Source History Obtained from:: Patient and Chart Anesthesia Focused Assessment* Temperature: 97.2 F Pulse Rate: 56 Blood Pressure: 143/76 Respiratory Rate: 18 Pulse Ox: 97 Oxygen Delivery Method: Room Air Airway Assessment Mouth opens: >3 cm Mallampati Score: III Teeth Condition: Intact Labs Anesthesia Preop lab: CBC WBC, (4.4-11.0) 7.5 K/mm3 06/10/25, : RBC, (4.2-5.4) 4.08 M/mm3 L 06/10/25, :25 Hgb, (12.0-15.0) 13.0 g/dL 06/10/25, : Hct, (37-47) 39.8 % 06/10/25, : Plt Count, (150-450) 349 K/mm3 06/10/25, 09:25 CHEMISTRY Potassium, (3.3-5.1) 4.3 mmol/L 06/10/25, : Sodium, (133-145) 141 mmol/L 06/10/25, :25 Magnesium, (1.5-2.2) 2.0 mg/dL 06/10/25, :25 BUN, (4-19) 39 mg/dL H 06/10/25, :25 Creatinine, (0.70-1.20) 0.94 mg/dL 06/10/25, :25 Glucose, (70-99) 102 mg/dL H 06/10/25, 09:25 POC Glucose, (70-110) 118 mg/dL H 05/29/18, 09:29 COAG Pre-Assessment Diagnosis/Proposed Procedure Planned Operative Procedure(s): ROBOTIC ASSISTED RIGHT TOTAL KNEE ARTHROSCOPY Anesthesia History Anesthesia History - supervisor dimension warehouse: Anesthesia History - supervisor dimension warehouse Hx Hospitalization No 06/10/25 08:12 Any Problems With Anesthesia Yes: PONV 06/10/25 08:12 Cholinesterase deficiency No 06/10/25 08:12 You/Your Family Experience No 06/10/25 08:12 fever (hyperthermia) with Relationship Recent Exposure to Contagious No 07/07/25 09:03 Disease Does patient have nerve No 06/10/25 08:12 stimulator Patient instructed to have device shut off --Does patient have Pacemaker No 07/07/25 09:03 or ICD? When Was Last Pacemaker Check QUESTION #4 FULL TEXT: You/Your Family Experience fever (hyperthermia) with Anesthesia Last Oral Intake Last Oral intake: Last Oral Intake NPO since 04:30 07/07/25 09:03 Meds taken in AM with sips of Yes 07/07/25 09:03 water? Meds patient instructed to carvedilol and lisinopril 07/07/25 09:03 take am of surgery PONV PONV - supervisor dimension warehouse: PONV - supervisor dimension warehouse Female Yes 06/10/25 08:12 HX of Motion Sickness No 06/10/25 08:12 HX of N/V After Surgery Yes 06/10/25 08:12 Non-Smoker Yes 06/10/25 08:12 Duration of Surgery greater Yes 06/10/25 08:12 than 60 minutes Number of Risk Factors 4 06/10/25 08:12 PONV Score Severe Risk 06/10/25 08:12 Height & Weight Height & Weight: Anesthesia: Height & Weight Height 5 ft 2 in 07/07/25 09:03 Weight: 71.8 kg 07/07/25 09:03 Body Mass Index (BMI) 28.9 07/07/25 09:03 Respiratory Assessment Respiratory Assessment - supervisor dimension warehouse: Respiratory Tract Infection Hx - supervisor dimension warehouse Hx Respiratory Tract Infection No 06/10/25 08:12 STOP Sleep Apnea STOP Sleep Apnea - supervisor dimension warehouse: STOP Sleep Apnea - supervisor dimension warehouse Hx Hypertension Yes 06/10/25 08:12 Hx Sleep Apnea Yes 06/10/25 08:12 CPAP No 06/10/25 08:12 BIPAP No 06/10/25 08:12 Do you snore loudly (louder than talking or can be heard Do you often feel tired/ fatigued/ sleepy during daytime? Has anyone observed you stop breathing during sleep? STOP Results Positive 06/10/25 08:12 QUESTION #5 FULL TEXT : Do you snore loudly (louder than talking or can be heard through closed doors)? Tobacco Use History Tobacco Use History - supervisor dimension warehouse: Tobacco Use History - supervisor dimension warehouse Tobacco Use Smoking Status Never smoker 06/10/25 08:12 Hx Tobacco Use No 06/10/25 08:12 Years Smoking Packs Smoked per Day Smoking Cessation Date was within the last 15 years Hx Smoking Cessation Date Hx Smoking Cessation Counseling Hematologic Medial History Hematologic Hx - supervisor dimension warehouse: Hematologic Medical Hx - mini shifter Hx of Blood Transfusion No 06/10/25 08:12 Hx of Transfusion in last 3 No 06/10/25 08:12 Months Date of Last Transfusion (if within last 3 months) Ever experience any problems No 06/10/25 08:12 with transfusion(s)? Specify any problems Hx of Preganancy in last 3 No 06/10/25 08:12 Months Nurse Filling Out Transfusion [email or web address] 06/10/25 08:12 & Questions: Date: 06/10/25 06/10/25 08:12 Time: 08:18 06/10/25 08:12 Patient unable to answer at this time (ie. confused, unrespo /Reproduction History /Reproductive History - supervisor dimension warehouse: /Reproductive Hx- supervisor dimension warehouse Hx Now Gestational Age (in weeks): EDC: Hx Hx Para Hx Section SAB Active Medications Active Medications: Current Medications Generic Name Dose Route Start Last Admin Trade Name Nolberto PRN Reason Stop Dose Admin Acetaminophen 1,000 mg 07/07/25 07:00 Acetaminophen 500 Mg Tablet PO Q8H BUZZ Aspirin 81 mg 07/07/25 10:00 Aspirin 81 Mg Tab.Chew PO BID BUZZ Doxycycline Monohydrate 100 mg 07/08/25 13:00 Doxycycline 100 Mg Capsule PO BID BUZZ Enteral Nutritional Formula 237 ml 07/07/25 08:00 Ensure Surgery 237 Ml Liquid PO TIDCM BUZZ Famotidine 20 mg 07/07/25 10:00 Famotidine 20 Mg Tablet PO DAILY BUZZ Lactated Ringer's 1,000 mls @ 999 mls/hr 07/07/25 09:00 07/07/25 09:14 IV 07/07/25 10:00 999 mls/hr .Q1H1M BUZZ Administration Cefazolin Sodium 2 gm/ Sodium 110 mls @ 150 mls/hr 07/07/25 09:00 Chloride IV 07/07/25 09:43 INTRAOP ONE Lactated Ringer's 1,000 mls @ 999 mls/hr 07/07/25 09:00 IV 07/07/25 10:00 .Q1H1M BUZZ Lactated Ringer's 1,000 mls @ 125 mls/hr 07/07/25 09:00 IV 07/07/25 16:59 .Q8H BUZZ Vancomycin HCl 1,000 mg/ 270 mls @ 250 mls/hr 07/07/25 09:00 Sodium Chloride IV 07/07/25 10:04 PREOP ONE Cefazolin Sodium 1 gm in 50 mls @ 100 mls/hr 07/07/25 07:00 IV 07/07/25 15:29 Q8H BUZZ Insulin Human Lispro 1 - 6 unit 07/07/25 09:00 Insulin Lispro 100 Unit/Ml Insuln.Pen SC 07/07/25 18:00 Q4H PRN PRN BG>/= 180, SEE PROTOCOL Protocol Ketorolac Tromethamine 15 mg 07/07/25 06:59 Ketorolac 15 Mg/Ml Vial IV 07/08/25 07:00 Q6H PRN PRN Pain Score 1-10 Meloxicam 7.5 mg 07/09/25 10:00 Meloxicam 7.5 Mg Tablet PO BID [facility] Morphine Sulfate 2 - 4 mg 07/07/25 06:59 Morphine 2 Mg/Ml Syringe IV Q2H PRN PRN Pain Score 4-10 Ondansetron HCl 4 mg 07/07/25 06:59 Ondansetron 4 Mg/2 Ml Vial IV Q6H PRN PRN NAUSEA/VOMITING Oxycodone HCl 5 - 10 mg 07/07/25 06:59 Oxycodone 5 Mg Tablet PO Q4H PRN PRN Pain Score 4-10 Promethazine HCl 12.5 mg 07/07/25 06:59 Promethazine 25 Mg Tablet PO Q6H PRN PRN NAUSEA/VOMITING Promethazine HCl 12.5 mg 07/07/25 06:59 Promethazine 25 Mg/Ml Syringe IM Q6H PRN PRN NAUSEA/VOMITING Senna/Docusate Sodium 2 tablet 07/07/25 10:00 Senna/Docusate Sodium 1 Tablet PO BID BUZZ PFSH Medical History Wears glasses History of steroid therapy Injury of head and neck Sleep apnea Non-smoker History of pain when walking Fracture of metacarpal of left hand, closed High cholesterol HTN (hypertension) Home Medications ?Medication ?Instructions ?Recorded ?Last Taken ?Type lisinopril 20 1 ea PO DAILY 04/11/17 07/07/25 History mg-hydrochlorothiazide 12.5 mg tablet (Zestoretic) carvedilol 12.5 mg tablet 12.5 mg PO BID 02/12/24 07/07/25 History cholecalciferol (vitamin D3) 25 25 mcg PO DAILY 06/10/25 07/06/25 History mcg (1,000 unit) capsule (Vitamin D3) meloxicam 7.5 mg tablet 7.5 mg PO BID 06/10/25 07/06/25 History rosuvastatin 5 mg tablet 5 mg PO DAILY 06/10/25 07/06/25 History Allergy/AdvReac Type Severity Reaction Status Date / Time No Known Allergies Allergy Verified 07/07/25 09:01 Surgical History History of ankle surgery Hx of cholecystectomy History of tonsillectomy and adenoidectomy History of total hysterectomy with no history of abnormal cervical Papanicolaou smear Social History household members: none and other details: Smoking Status: Never smoker alcohol intake: current alcohol intake frequency: holidays/special occasions only Addt'l Information Additional Findings: Sinus Bradycardia on EKG. < 4 Mets limited by pain in knee. No CP or SOB with activity. Review of Systems (Anesthesia) ROS Narrative System reviewed and no additional complaints, except as documented. Physical Exam Const alert and oriented x3 Resp normal respiratory effort and normal air movement Auscultation: clear to auscultation bilaterally Cardio regular rate and regular rhythm Neuro oriented x3 and moves all extremities
[2025-07-07] MEDS: Vancomycin HCl 1,000 MG in 0.9% Normal Saline (250mL Bag) 250 ML 250 MG IV (09:45)
[2025-07-07] MEDS: Cefazolin 1 GM/5 ML Vial 2 GM IV (10:31)
[2025-07-07] MEDS: PROPOFOL 47.19 MG IV (10:35)
[2025-07-07] MEDS: Lidocaine 1% (5 ml sdv) 5 ML Vial 3 ML IV (10:36)
[2025-07-07] MEDS: TRANEXAMIC ACID 1,000 MG/10 ML ML 2000 MG IV (11:30)
[2025-07-07] MEDS: JPS (Morphine 10mg/ml) OPERA.SITE (11:33)
--- NOTE | 2025-07-07 11:43 | PCM.OPRPT ---
Operative Report (Standard) Operative Information Date of Procedure: 07/07/25 Pre-Operative Diagnosis: Right knee primary osteoarthritis Post-Operative Diagnosis: Right knee primary osteoarthritis Surgery/Procedure Performed: Right knee minimally invasive robotic assisted total arthroplasty embossing press operator molded goods: Yes Rig Mechanic: Yoanna Bryant Tasks completed by visitor information assistant: Other (See body of operative report) Additional speech language pathologist assistant?: Yes Additional Plant Technical Specialist #2: Hyun Green Tasks completed by speech language pathologist assistant #2: Opening & closing and Retracting Additional speech language pathologist assistant?: No Type of Anesthesia: Spinal RN Documented Start/Stop Times: Operation Date: 07/07/25 10:30 Case Time Into Pre-Op 07/07/25 08:41 Anesthesia Start 07/07/25 10:31 Into Room 07/07/25 10:31 Procedure Start 07/07/25 10:50 Procedure End 07/07/25 11:56 Anesthesia End 07/07/25 12:01 Out of Room 07/07/25 12:01 Into Recovery 07/07/25 12:05 Out of Recovery 07/07/25 13:26 Procedure Start Time: 10:50 Procedure Stop Time: 11:56 Select all DRAINS/GRAFTS/IMPLANTS that apply: Prosthetic device Prosthetic device details: See body of operative report Special Medications: 2 g Ancef, vancomycin, 1 g TXA at incision, 1 g TXA closure, 10 mg Decadron, joint cocktail (5 mg Duramorph, 30 mL of 0.5% Ropivicaine, 1000 units of epinephrine, 30 mg of Toradol) Estimated Blood Loss: 25 mL Fluids Replaced: 1000 L crystalloid Specimen collected: Yes Description of specimen(s) removed: Bony cuts Description of surgery: Implants used: 1. [place] size 3 triathlon cruciate retaining distal femoral press-fit component 2. [place] size 3 press-fit tritanium tibial baseplate 3. [place] X3 9 mm CS polyethylene Brief history operative indications: 85-year-old F with history of right knee osteoarthritis with radiographic findings with loss of joint space, osteophyte formation and subchondral sclerosis. Failed conservative measures as mentioned in the H&P. Discussion of total knee arthroplasty as well as risk and benefits were discussed the patient including but not limited to blood loss, DVTs, PEs, neurovascular damage, general risk of anesthesia including loss of life, and stiffness or instability were discussed with patient. Patient demonstrated understanding and was able to sign informed consent. Procedure: On the date of procedure patient's right lower extremity was marked in the preoperative area. The patient was then taken back to the operating room where the patient was placed on the table in the supine position. All bony prominences were identified a well-padded. Anesthesia assumed control of the C-spine and airway and remained controlled throughout the remainder of the procedure. A tourniquet was placed on the right upper thigh and the leg was prepped in a sterile fashion. The surgeon then scrubbed at this time .Upon reentering the room right lower extremity was draped in a standard orthopedic fashion. A timeout was then called and everyone agreed upon the side, the site, the procedure to be performed, patient's identity and antibiotics given. Esmarch bandage was used to exsanguinate the extremity and the tourniquet was placed up to 250 mmHg with the knee in flexion. A midline skin incision was made and sharp dissection was taken down through skin subcutaneous tissue and fat. The standard medial parapatellar incision was made and the patella was subluxed laterally. An Appropriate deep MCL release was done and the fat pad was resected. Our attention was then directed to the patella. The patella was everted and and found to have appropriate cartilage for retention The knee was then flexed up in 2 femoral pins were placed inside the incision and 2 tibial pins were placed outside the incision in the medial tibia bicortically. Once this was completed the 2 checkpoints in the femur and tibia were placed. Knee was then flexed up and the bony landmarks were registered. Once this was completed knee was taken through range of motion and manually stressed allowing us to a plan for an appropriate tibial cut. The robotic arm was brought into the field sterilely and checkpoint and saw were registered. Based on the patient's deformity the tibial cut was made neutral to the tibial axis. At this time the tensioner was then placed in the joint and ligament tension was checked at 90 degrees and full extension. Based on the patient's ligamentous tension appropriate adjustments were made to the operative plan and ligament releases were done. Once we were happy with our operative plan with balanced flexion and extension gaps our attention was directed to the femur. The robot was brought into the field sterilely and registered. Posterior condylar cuts, anterior chamfer cuts and anterior cuts were appropriately made for a size 3 femur. When these were completed the saws were switched out in the distal femoral and posterior chamfer cuts were made. Protecting the soft tissue throughout this time. A size 3 tibial base plate was selected. the knee was flexed to 90 degrees and the soft tissues and posterior osteophytes were removed from the joint. 40 cc of the periarticular injection was injected into the posterior medial corner of the joint. The appropriate trials were then placed on the femur and tibia. A trial polyethylene was trialed to ensure proper balancing and stability of the knee. The appropriate tibial internal rotation was then marked with a bovie. Our attention was then directed to the patella. Patellar tracking was checked and deemed appropriate. Once we were happy lug holes were drilled for the femur and trial components were removed. The tibia was subluxed and pinned into place and the keel was punched and drilled appropriately. Final components were verified and opened. The wound was copiously irrigated with normal saline. When the cement was ready the components were impacted into place starting with the tibia then the femur, finally the patella was compressed into place. The trial poly component was placed and the knee was placed in full extension. Once the the implants were secured, the tracking, alignment and balance were verified and a size 9 mm CS polyethylene component was placed. Once the final components were placed a 3-minute dilute Betadine lavage was performed followed by an Irrisept lavage was performed and the wound was copiously irrigated with normal saline solution and the periarticular injection was given. The wound was closed in a layer mayorga fashion using #1 vicryl interrupted sutures for the arthrotomy, 2-0 interrupted Vicryl suture for the subcuticular layer and albina for final skin closure. A sterile compressive dressing was then placed. The patient was then awakened from anesthesia, transferred to the [facility] and transferred to the PACU for recovery. Post op plan DVT ppx: ASA 81mg BID, thigh high compression stockings Follow up: in office in 2 weeks for wound check PT: to start POD #0 at hospital, outpatient PT should be arranged. Extended postop antibiotics due to positive staph screening preoperatively. My physician speech language pathologist assistant was a vital part of this case, they was important because there was not another skilled set of hands available to their training and aptitude needed for safe and appropriate completion of this case. They were important in appropriate retraction during the case, and protection of soft tissues during bony cuts. In particular the experience and skill of this speech language pathologist assistant made for safe retraction and exposure during implantation of medical implants without damage to vital soft tissues or structures. His intimate knowledge of the case and my steps aided in safe and expedient completion of the procedure as well as appropriate position of the leg during the case. He was also vital in assisting with closure under my direct supervision. Due to the complexity of this case robotic arm was used to assist in the surgery to improve accuracy and clinical outcomes. Surgical Findings: Stage IV osteoarthritis. Stable knee with good patella tracking Complications Complications: No Admit VTE Documentation VTE Present on Admission: No VTE Mechan Device Prophylaxis: SCD's and Thigh High OLE Hose VTE Pharm Prophylaxis ordered?: Yes
--- NOTE | 2025-07-07 12:13 | PCM.POST.ANE ---
Anesthesia: Postop Eval I Current Vital Signs Temperature: 97 F Pulse Rate: 58 Blood Pressure: 120/59 Respiratory Rate: 16 Pulse Ox: 94 Assessment Airway patent: Yes Spontaneous unlabored respirations: Yes nausea: No Vomiting: No Anesthesia Complication: No Fluid Hydration Crystalloid volume administer (ml): 1,200 Total IV fluid infused: 1,200 Progress Note Anesthesia document: Postop Eval 1 completed: Yes
[2025-07-07] MEDS: LR 1,000 ML - BOLUS POSTOP 999 ML IV (12:44)
--- NOTE | 2025-07-07 13:13 | POSTOPAN2_ITS ---
Anesthesia Postop Eval I Sum Postop Eval Completion status Anesthesia document: Postop Eval 1 completed: Yes Anesthesia Postop Eval I Summary Anesthesia Postop Eval I Summary: Anesthesia Postop Eval I: Assessment Summary Airway patent Yes 07/07/25 12:13 NATIONAL ACCOUNT EXECUTIVE.TNES Spontaneous unlabored Yes 07/07/25 12:13 NATIONAL ACCOUNT EXECUTIVE.TNES respirations Mental status nausea No 07/07/25 12:13 NATIONAL ACCOUNT EXECUTIVE.TNES Vomiting No 07/07/25 12:13 NATIONAL ACCOUNT EXECUTIVE.TNES Anesthesia Postop Eval I: Fluid Summary Crystalloid volume administer 1,200 07/07/25 12:13 NATIONAL ACCOUNT EXECUTIVE.TNES (ml) Colloids volume administered ( ml) Blood Product volume administered (ml) Total IV fluid infused 1,200 07/07/25 12:13 NATIONAL ACCOUNT EXECUTIVE.TNES Anesthesia Postop Eval I: Summary Notes Anesthesia Complication No 07/07/25 12:13 NATIONAL ACCOUNT EXECUTIVE.TNES Anesthesia Complication Comment: Post-operative progress note Anesthesia: Postop Eval II Evaluation Mental status: Awake and Calm Pain Level: 2 nausea: No Vomiting: No Complications Anesthesia Complication: No
--- NOTE | 2025-07-07 13:13 | PCM.POSTANE2 ---
Anesthesia Postop Eval I Sum Postop Eval Completion status Anesthesia document: Postop Eval 1 completed: Yes Anesthesia Postop Eval I Summary Anesthesia Postop Eval I Summary: Anesthesia Postop Eval I: Assessment Summary Airway patent Yes 07/07/25 12:13 DENIER CONTROL OPERATOR.TNES Spontaneous unlabored Yes 07/07/25 12:13 DENIER CONTROL OPERATOR.TNES respirations Mental status nausea No 07/07/25 12:13 DENIER CONTROL OPERATOR.TNES Vomiting No 07/07/25 12:13 DENIER CONTROL OPERATOR.TNES Anesthesia Postop Eval I: Fluid Summary Crystalloid volume administer 1,200 07/07/25 12:13 DENIER CONTROL OPERATOR.TNES (ml) Colloids volume administered ( ml) Blood Product volume administered (ml) Total IV fluid infused 1,200 07/07/25 12:13 DENIER CONTROL OPERATOR.TNES Anesthesia Postop Eval I: Summary Notes Anesthesia Complication No 07/07/25 12:13 DENIER CONTROL OPERATOR.TNES Anesthesia Complication Comment: Post-operative progress note Anesthesia: Postop Eval II Evaluation Mental status: Awake and Calm Pain Level: 2 nausea: No Vomiting: No Complications Anesthesia Complication: No
[2025-07-07] MEDS: LR 1,000 ML - 125 ML/HR (POST BOLUS) POST OP IV (13:54)
--- NOTE | 2025-07-07 14:24 | CON.PCM.HO_ITS ---
Assessment & Plan Assessment/Plan (1) Status post right knee replacement: PLAN: Plan Patient is an 85-year-old female who presented [facility] on 07/07/2025 for right knee replacement. Medicine consulted postoperatively for medical management. 1. Right knee primary osteoarthritis ? Orthopedic surgery primary. S/p right knee minimally invasive total arthroplasty with Dr. Cooper on 07/07. Patient tolerated procedure well, no intraoperative complications noted. Postoperative pain control, DVT prophylaxis and further management per orthopedics. Follow-up a.m. CBC and BMP. PT/OT/case management consulted. Per patient, tentative plan currently is for TCU on discharge as she lives at home alone. 2. Hypertension ? Hypertensive to the 140s to 150s postoperatively. Continue home Coreg, lisinopril and hydrochlorothiazide. 3. Hyperlipidemia ? Continue home statin. DVT prophylaxis: Baby aspirin twice daily per orthopedics Total clinical time spent by myself addressing the patient's medical issues, reviewing all the data, and collaborating with patient's care team: 36 minutes. HPI Consult Data Date of Consult: 07/07/25 HPI Narrative Reason for Consultation: Postoperative medical management HPI Narrative: ADRIANNA BALDERAS, is a 85 F who presented to [facility] on 07/07/2025 for planned orthopedic procedure. Medicine consulted postoperatively for medical management. Medical history significant for right knee primary osteoarthritis. Patient had right knee total arthroplasty done with Dr. Cooper today. Tolerated procedure well, no intraoperative complications noted. I saw the patient at bedside on the floor this afternoon, daughter was present. Patient was sitting comfortably in the bedside chair, conversing normally and in no acute distress. She noted that her right knee remains numb as it has since completion of the procedure. She was able to ambulate with symptoms of a walker and staff without significant issue. She denied any other acute concerns currently. [facility] Medical History Wears glasses History of steroid therapy Injury of head and neck Sleep apnea Non-smoker History of pain when walking Fracture of metacarpal of left hand, closed High cholesterol HTN (hypertension) Home Medications ?Medication ?Instructions ?Recorded ?Last Taken ?Type lisinopril 20 1 ea PO DAILY 04/11/1707/07 History mg-hydrochlorothiazide 12.5 mg tablet (Zestoretic) carvedilol 12.5 mg tablet 12.5 mg PO BID 02/12/24/07/03 History cholecalciferol (vitamin D3) 25 25 mcg PO DAILY 07/06/25 History mcg (1,000 unit) capsule (Vitamin D3) meloxicam 7.5 mg tablet 7.5 mg PO BID 06/10/2507/06 History rosuvastatin 5 mg tablet 5 mg PO DAILY 06/10/2507/06 History Allergy/AdvReac Type Severity Reaction Status Date / Time No Known Allergies Allergy Verified 07/07/25 09:01 Surgical History History of ankle surgery Hx of cholecystectomy History of tonsillectomy and adenoidectomy History of total hysterectomy with no history of abnormal cervical Papanicolaou smear Social History household members: none and other details: Smoking Status: Never smoker alcohol intake: current alcohol intake frequency: holidays/special occasions only ROS Constitutional Constitutional: Denies chills, fatigue, fever(s) or weakness Cardiovascular Cardiovascular: Denies chest pain Respiratory/Chest Respiratory/Chest: Denies shortness of breath at rest Gastrointestinal Gastrointestinal: Denies abdominal pain Musculoskeletal Musculoskeletal: Denies arthralgias, joint pain or myalgias Neurologic Neurologic: Denies dizziness, focal weakness or headache(s) Physical Exam Const alert, oriented x3, no apparent distress and average body habitus Constitutional Narrative: Pleasant elderly female, mentally sharp, sitting back comfortably in bedside chair, conversing normally, in no acute distress. General Appearance: cooperative and comfortable HEENT normocephalic, head/scalp atraumatic, hearing grossly normal bilaterally, nasal mucous membranes and turbinates normal and moist oral mucous membranes Eyes PERRL, EOMs intact bilaterally and conjunctivae normal Neck full ROM Chest inspection of chest normal Resp normal respiratory effort, normal air movement, no use of accessory muscles and clear to auscultation bilaterally Cardio regular rate, regular rhythm, no murmurs and peripheral pulses 2+ throughout GI normal to inspection, nondistended, normoactive bowel sounds, soft to palpation, non-tender and non-distended Back/Spine normal ROM Extremity Extremity Narrative: Right knee with dressing and ice pack in place. No tenderness to palpation noted. Skin no rashes or lesions noted Psych mental status grossly normal Lab / Micro Data 06/10/25 09:25 06/10/25 09:25 Labs: Laboratory Results - last 24 hr 07/07/25 09:00: POC Glucose 96 Imaging Radiology Impression Knee X-Ray 07/07/25 06:59 IMPRESSION: Hardware in position. Reading Location: [facility] Charges/Coding Visit Charges Inpatient E&M: 05608 Subs Hosp L2
[2025-07-07] MEDS: Senna/Docusate Sodium 1 Tablet 2 TABLET PO ×2 (14:49→21:02)
--- NOTE | 2025-07-07 17:12 | NURSING ---
draw frame runner documentation reviewed.
[2025-07-07] MEDS: Ensure Surgery 237 ML LIQUID PO (17:14)
[2025-07-07] MEDS: Cefazolin 1 GM/50 ML BAG IV (17:26)
[2025-07-08] VITALS (7 sets, daily range): BP systolic 121–151; BP diastolic 51–85; PULSE 46–56; RESP 16–18; TEMP 35.9–36.6; O2SAT 93–98
[2025-07-08] MEDS: Cefazolin 1 GM/50 ML BAG IV (02:16)
[2025-07-08 06:36] LABS: Anion Gap 11 (5-15); BUN 27 mg/dL (4-19); BUN/Creat Ratio 34.4 RATIO (10-20); Calcium,Total 9.0 mg/dL (7.6-11.0); Carbon Dioxide 22.1 mmol/L (21.0-32.0); Chloride 107 mmol/L (98-108); Estimated Creatinine Clearance 49.44 ml/min (50-250); Glucose 140 mg/dL (70-99); Potassium 4.1 mmol/L (3.3-5.1)
[2025-07-08 06:50] LABS: Hematocrit 36.8 % (37-47); Hemoglobin 12.2 g/dL (12.0-15.0); Mean Corp Hgb Conc 33.2 g/dL (32-36); Mean Corpuscular Volume 97.6 fL (81-99); Mean Platelet Vol. 10.2 fl (6.2-12.0); Platelet Count 259 K/mm3 (150-450); RBC Distribution Width CV 12.7 % (11.6-14.6); RBC Distribution Width SD 45.5 fl (35.1-43.9); Red Blood Count 3.77 M/mm3 (4.2-5.4); White Blood Count 11.4 K/mm3 (4.4-11.0)
--- NOTE | 2025-07-08 08:01 | PCM.PN.HOSP ---
Subjective Subjective Doing well, no issues overnight. Pain is controlled. Objective Data Objective Data Vital Signs: Vital Signs Temp Pulse Resp BP Pulse Ox O2 Del Method O2 Flow Rate 97.2 F L 53 L 18 130/51 H 93 Room Air 2 07/08/25 07:49 07/08/25 07:49 07/08/25 07:49 07/08/25 07:49 07/08/25 07:49 07/08/25 07:49 07/08/25 02:13 Oxygen Flow Rate (L/min) 2 Oxygen Delivery Method Room Air Weight: 158 lb 4.67 oz Body Mass Index (BMI) 28.9 Intake & Output: Intake and Output for Last 24 Hours 07/07/25 07/08/25 07/09/25 03:59 03:59 03:59 Intake Total 4613.67 / 4613.67 357.53 / 357.53 Output Total 450 / 450 Balance 4163.67 / 4163.67 357.53 / 357.53 Lab / Micro Data 07/08/25 05:48 07/08/25 05:48 Labs: Laboratory Results - last 24 hr 07/07/25 09:00: POC Glucose 96 07/08/25 05:48: WBC 11.4 H, RBC 3.77 L, Hgb 12.2, Hct 36.8 L, MCV 97.6, MCH 32.4 H, MCHC 33.2, RDW Std Deviation 45.5 H, RDW Coeff of Dimitri 12.7, Plt Count 259, MPV 10.2, Sodium 140, Potassium 4.1, Chloride 107, Carbon Dioxide 22.1, Anion Gap 11, BUN 27 H, Creatinine 0.79, Estim Creat Clear Calc 49.44 L, Est GFR (MDRD) Non-Af 74, BUN/Creatinine Ratio 34.4 H, Glucose 140 H, Calcium 9.0 Micro: Microbiology 06/10/25 09:25 Swab (Method) Nasal Screen MRSA/MSSA - Final Radiography Diagnostic Testing: Radiology Impression Knee X-Ray 07/07/25 06:59 IMPRESSION: Hardware in position. Reading [facility] Physical Exam Narrative General: Alert, Oriented x3, Cooperative, No apparent distress HEENT: Atraumatic, PERRLA, EOMI, Normocephalic Oral: Moist Mucosa Neck: Supple, No JVD Lungs: Diminished, Normal air movement, No rhonchi, No wheeze, No rales Cardiovascular: Regular rate, Regular Rhythm, Normal S1, Normal S2, No murmurs Abdomen: Soft, Non Tender, Non-Distended, No Hepato-splenomegaly Extremities: No edema, Capillary Refill Less than 3 Seconds Skin: Dressing CDI Musculoskeletal: No Tenderness to Palpation of Joints or Extremities Neurological: No focal neurological deficits, moves all extremities Psych/Mental Status: Normal Affect, Appropriate Assessment & Plan Assessment/Plan (1) Status post right knee replacement: PLAN: Plan 1. Right knee primary osteoarthritis status post right knee arthroplasty on 07/07/2025 ? Orthopedic surgery primary. ? PT/OT ? Pain control ? Medically stable for discharge, she would like to explore SNF placement at TCU 2. Essential HTN/HLD ? Hypertensive to the 140s to 150s postoperatively. ? Continue home Coreg, lisinopril and hydrochlorothiazide. ? Can resume her home medications on discharge as well ? Continue with Crestor DVT: Baby aspirin twice daily per orthopedics Will sign off Charges/Coding Visit Charges Office Visits / Consults: 32811 OV L3 Est 20min
--- NOTE | 2025-07-08 08:22 | PCM.PN.ORT ---
Subjective Subjective Patient is sitting comfortably in bed upon examination. Patient states that she is doing really well and she is very happy at this time. Patient states that she did work with physical therapy yesterday. Patient states that she has been in contact with the transitional care unit and they have told her that she would be able to self-pay if her insurance will not cover and so she would like to go to transitional care unit as she does not feel comfortable with going home by herself. Patient states that her pain is adequately controlled at this time. Patient denies any new nausea vomiting dizziness. Patient denies any new numbness or tingling. Patient denies any shortness of breath, chest pain, calf pain. Patient denies any adverse events overnight. Objective Data Objective Data Vital Signs: Vital Signs Temp Pulse Resp BP Pulse Ox O2 Del Method O2 Flow Rate 97.2 F L 53 L 18 130/51 H 93 Room Air 2 07/08/25 07:49 07/08/25 07:49 07/08/25 07:49 07/08/25 07:49 07/08/25 07:49 07/08/25 07:49 07/08/25 02:13 Oxygen Flow Rate (L/min) 2 Oxygen Delivery Method Room Air Weight: 71.8 kg Body Mass Index (BMI) 28.9 Intake & Output: Intake and Output for Last 24 Hours 07/06/25 07/07/25 07/08/25 23:59 23:59 23:59 Intake Total 4613.67 / 4613.67 357.53 / 357.53 Output Total 450 / 450 Balance 4163.67 / 4163.67 357.53 / 357.53 Lab / Micro Data 07/08/25 05:48 07/08/25 05:48 Labs: Laboratory Results - last 24 hr 07/07/25 09:00: POC Glucose 96 07/08/25 05:48: WBC 11.4 H, RBC 3.77 L, Hgb 12.2, Hct 36.8 L, MCV 97.6, MCH 32.4 H, MCHC 33.2, RDW Std Deviation 45.5 H, RDW Coeff of Dimitri 12.7, Plt Count 259, MPV 10.2, Sodium 140, Potassium 4.1, Chloride 107, Carbon Dioxide 22.1, Anion Gap 11, BUN 27 H, Creatinine 0.79, Estim Creat Clear Calc 49.44 L, Est GFR (MDRD) Non-Af 74, BUN/Creatinine Ratio 34.4 H, Glucose 140 H, Calcium 9.0 Micro: Microbiology 06/10/25 09:25 Swab (Method) Nasal Screen MRSA/MSSA - Final Radiography Diagnostic Testing: Radiology Impression Knee X-Ray 07/07/25 06:59 IMPRESSION: Hardware in position. Reading Location: [facility] Physical Exam Narrative OLE hose in place bilaterally SCDs in place bilaterally Dressing is clean, dry, intact. Dorsiflexion and plantarflexion are performed actively without pain or restriction Sensation intact light touch. Neurovascularly intact overall. Negative Homans bilaterally. Const alert, oriented x3 and no apparent distress Assessment & Plan Assessment/Plan (1) Status post right knee replacement: PLAN: 1. DVT prophylaxis: Patient will be taking aspirin 81 mg twice daily for 4 weeks postoperatively. Patient will be wearing OLE hose for 2 weeks postoperatively. Patient was educated she can take OLE hose off at night and for showering. 2. Pain medications: Patient will be taking Tylenol 1000 mg every 8 hours patient was educated not to take more than 3000 mg in 24 hours, patient will be taking meloxicam for 30 days postoperatively, oxycodone as needed for postoperative pain medication. Patient was educated with meloxicam do not take any other anti-inflammatory medications. OARRS report was reviewed today. Patient was instructed to use minimal amount of narcotic pain medication to control her pain. Patient was educated not to operate heavy equipment or drive a motor vehicle while taking narcotic pain medication. Patient voiced understanding. 3. Constipation: Patient will be taking senna as instructed until her first bowel movement to decrease the risk of impaction following surgery. Patient was instructed if she has not yet had a bowel movement in 3 days contact our office for reevaluation. 4. Physical therapy: Patient will continue to be weightbearing as tolerated with walker. Patient has worked with physical therapy at this time. 5. H&H: 12.2/36.8. Vitals are stable and afebrile. 6. Doxycycline: Patient will be taking doxycycline due to positive staph testing before surgery. Patient was educated on risk of sunburn while taking doxycycline. Patient was educated to take probiotic while on doxycycline. Patient voiced understanding. 7. Reactive leukocytosis: White blood cell count is currently 11.4. Patient did receive Decadron intraoperatively. Vital signs are stable and patient is afebrile at this time. 8. Incentive spirometry: Patient was encouraged to use incentive spirometer every hour that she is awake for the first week to exercise along decrease risk postoperative lung infection. 9. Dressings: Patient was educated to remove dressing on postop day 5. Patient was educated can leave open to air as long as incision is clean, dry, intact. 10. Medicine is on board at this time. Will continue to keep medicine on board to monitor chronic disease. 11. Patient is to follow-up per postoperative instructions. 12. Disposition: Patient states that she has been in contact with the transitional care unit and is planning on going to the transitional care unit even if she has to self pay for it. Patient was educated that there will be social work involved to help for safe and proper discharge planning. Medicine is involved at this time for safe and proper discharge planning. Patient will continue to be weightbearing as tolerated with physical therapy. Patient will need to follow-up with our office in 2 weeks for wound check. Postoperative medication instructions were reviewed with patient at length in hospital today. Patient was encouraged to call with any questions, concerns, new problems.
[2025-07-08] MEDS: Cholecalciferol (VIT D3) 25 MCG TABLET (1,000 UNITS) PO (09:24)
[2025-07-08] MEDS: Senna/Docusate Sodium 1 Tablet 2 TABLET PO ×2 (09:25→20:28)
[2025-07-08] MEDS: FLU VACCINE HIGH DOSE 25-26(65YR UP) 180 MCG/0.5 ML SYRINGE IM (09:30)
--- NOTE | 2025-07-08 09:53 | CASEMGMT ---
GROVES Met with patient to complete GROVES form. GROVES form and its content were verbally explained and patient's questions were answered to the best of my ability.? Patient voiced understanding and signed GROVES form.? Patient provided a copy of signed GROVES form and original placed in patient's chart.? Patient had no further questions. Anusha Matute, Discharge Planning Asst
--- NOTE | 2025-07-08 10:45 | CASEMGMT ---
Addendum entered by Sherrie Diaz 07/08/25 16:00: KATJA MATTHEWS into pt room, pt is aware that she has been approved to go to [facility] starting tomorrow. Pt cousin in room. Pt would like her cousin Tamera Moss to be notified when she transfers over. Her phone number is [phone]. Pt and cousin deny further needs at this time. Addendum entered by Sherrie Diaz 07/08/25 12:04: Received notification from [facility] that precert was received but it starts tomorrow. Addendum entered by Sherrie Diaz 07/08/25 11:09: Therapy notes reviewed prior to meeting with patient. Original Note: KATJA MATTHEWS into pt room, pt sitting up in chair with nurse at bedside. Pt states she has been in touch with TCU and would like to go to [facility]. She states that if she is not approved with her insurance, she is willing to private pay if need be. Pt states she has heard such positive feedback from friends regarding TCU. Pt denies need for a list of other options. Referral sent to Angely in admissions, she will submit for precert today. Pt is aware that KATJA MATTHEWS will follow up with her once precert has been obtained. [facility]
[2025-07-08] MEDS: Ensure Surgery 237 ML LIQUID PO ×2 (13:47→16:14)
--- NOTE | 2025-07-08 13:55 | NURSING ---
Pt disoriented at times. When giving pt scheduled medications, pt heard people speaking in the halls and pt said, oh there's people in the living room. This RN reoriented pt to hospital. Pt laughed and said oh yes, that pain medicine makes me crazy sometimes. This RN had given pt prn oxycodone around 1100. Bed exit and chair alarm on. Will continue to monitor.
[2025-07-08] MEDS: MELATONIN 3 MG TABLET PO (22:09)
[2025-07-09 03:26] VITALS: O2SAT 97
[2025-07-09 05:11] VITALS: BP 163/76; PULSE 66; RESP 18; TEMP 36.6; O2SAT 95
[2025-07-09 07:45] VITALS: BP 134/69; PULSE 57; RESP 17; TEMP 36.3; O2SAT 96
[2025-07-09] MEDS: Cholecalciferol (VIT D3) 25 MCG TABLET (1,000 UNITS) PO (08:53)
[2025-07-09] MEDS: Senna/Docusate Sodium 1 Tablet 2 TABLET PO (08:54)
[2025-07-09 09:48] VITALS: O2SAT 96
--- NOTE | 2025-07-09 10:15 | PN.ORTHO_ITS ---
Subjective Subjective The patient was sitting in bedside chair upon examination. Patient denies any chest pain, shortness of breath, dizziness, lightheadedness, nausea or vomiting, or calf pain. Patient has had some confusion with use of the oxycodone. Case was discussed with the nursing staff. Patient has tolerated preoperatively tramadol without confusion. I will discontinue the oxycodone and we will prescribe tramadol for breakthrough as needed pain. Patient's family was present today which I did discuss this with them. Patient has done well with physical therapy. She has approval to go to the transitional care unit today. Patient does complain of some more pain today in which we did discuss the block completely wearing off. Patient does not appear to be in any distress. Objective Data Objective Data Vital Signs: Vital Signs Temp Pulse Resp BP Pulse Ox O2 Del Method O2 Flow Rate 97.4 F L 57 L 17 134/69 H 96 Room Air 2 07/09/25 07:45 07/09/25 07:45 07/09/25 07:45 07/09/25 07:45 07/09/25 09:48 07/09/25 09:48 07/08/25 20:20 Oxygen Flow Rate (L/min) 2 Oxygen Delivery Method Room Air Weight: 71.8 kg Body Mass Index (BMI) 28.9 Intake & Output: Intake and Output for Last 24 Hours 07/07/25 07/08/25 07/09/25 23:59 23:59 23:59 Intake Total 4613.67 / 4613.67 657.53 / 657.53 300 / 300 Output Total 450 / 450 Balance 4163.67 / 4163.67 657.53 / 657.53 300 / 300 Lab / Micro Data 07/08/25 05:48 07/08/25 05:48 Micro: Microbiology 06/10/25 09:25 Swab (Method) Nasal Screen MRSA/MSSA - Final Physical Exam Narrative Vital signs stable and afebrile. Patient was observed walking with physical therapy in which she is ambulating well with walker. Patient does not appear to be in any distress today but does complain of some more pain. Patient was alert and oriented to her name, date of , and the reason she is in the hospital. SCDs and OLE hose are in place bilaterally Patient is able to plantarflex and dorsiflex actively. Sensation is intact to light touch to saphenous, sural, superficial and deep peroneal, and tibial distribution. Main Mepilex dressing is clean dry and intact. There is trace drainage over the distal pin site dressing Negative Homans bilaterally, negative signs and symptoms of DVT. Const alert, oriented x3 and no apparent distress Assessment & Plan Assessment/Plan (1) Status post right knee replacement: PLAN: Plan 1. S/P robotic assisted right total knee arthroplasty POD #2 2. Continue Pain Medications: Tylenol and meloxicam primarily for pain control. Patient was having some confusion associated with the oxycodone. Oxycodone has been discontinued. Patient has tolerated tramadol preoperatively in which she did not have any associated side effects. I will have patient use tramadol 50 mg 1 tablet every 6 hours as needed for pain from 1-5, they can use 2 tablets every 6 hours if she has pain from 5-10. The tramadol will be for breakthrough as needed pain. 3. DVT Prophylaxis: Take 81 mg aspirin twice daily for 4 weeks postoperatively for DVT prophylaxis. Patient denies past history of DVT or pulmonary embolism. She will continue with OLE hose for 2 weeks postoperatively 4. PT/OT: Weightbearing as tolerated with walker 5. H & H: Yesterday lab was 12.2/36.8, patient is asymptomatic. Vitals are stable. She did have reactive leukocytosis with white blood cell count 11.4. We are awaiting lab results today. Patient did receive Decadron intraoperatively. No clinical signs of infection. 6. Postoperative confusion: I did discontinue the oxycodone which was causing some confusion. She is alert and oriented to her name, date of and the reason she is in the hospital. Patient thought that she was going to [facility] transitional care unit. We will continue to monitor this but I do believe postoperative confusion secondary to the narcotic. We will try to limit narcotics as much as possible but keeping the pain well-controlled. We did move from oxycodone and placed her on tramadol as needed. 7. Dressings: Main Mepilex dressing clean dry and intact. Trace drainage over the distal pin site dressing. Dressings will remain on for 5 days postoperatively. Plan will be to remove the dressing on Saturday, July 12, 2025. Once the dressing is removed they can use a nonstick pad or ABD to place over the incision underneath the OLE hose. Okay to shower and get the dressings wet. Once the dressing has been removed still okay to shower but only use gentle soap and water over the incision for 6 weeks postoperatively. She will not use any ointments or salves or topicals on the incision for 6 weeks. No submersion underwater for 6 weeks postoperatively. 8. Currently on doxycycline for 2 weeks postoperatively due to perioperative testing in which patient tested positive for staph. I discussed with the patient potential side effects of doxycycline including sensitivity to the sunlight and increased risk of skin burn. Recommend patient take appropriate precautions. Also recommend patient to take probiotic while on the antibiotic. Patient voiced understanding agreement. 9. Encouraged Incentive Spirometry 10. Patient is aware of postoperative constipation that can occur from 1-3 days postoperatively. Patient has been able to have a bowel movement while in the hospital. We will now use [id number] stool softener as needed for any constipation. 11. Continue postoperative medical treatment per medicine: Medicine did sign off of the patient yesterday and she does appear to be medically stable today. 12. Disposition: Plan will be for discharge to the transitional care unit at [facility] today. Patient overall is medically stable, tolerating therapy, and pain medications are helpful. She does have approval and case was discussed with the care management team. Medications have been adjusted for pain control in which we did stop the oxycodone and place patient on as needed tramadol for breakthrough pain. Patient tolerated tramadol preoperatively without any side effects. I did discuss this with her family who was present today. Narcotic pain medication will be placed on the chart. Patient will follow-up per postoperative instructions. Upon discharge patient will contact our office with any concerns or questions. I have reviewed the [place] Automated Rx Reporting System (OARRS) report for this patient for refill pattern and other prescriber involvement as part of the appropriate surveillance for the provision of acute and chronic controlled medications. The report was requested and reviewed on the date of this entry and was considered in the prescribing process. This dictation was created using voice recognition software. Phonetic and/or grammatical errors may exist.
--- NOTE | 2025-07-09 10:26 | DCINST_ITS ---
Discharge Instructions DC O2, CPAP, BIPAP needs Home O2 Discharge instructions: No Dressing / Incision Discharge Activity: May Not Drive (No driving for 6 weeks postoperatively. Must also be off all narcotics and able to walk 100 feet without the use of cane or walker.) May shower in (days): 1 (Please turn dressing away from water. Okay to get wet as long as dressing is intact to skin.) Ice area for (Minutes): 20 (Every 1-2 hours while awake. Please place barrier between the skin and ice pack.) Weight Bearing Status: Weight bearing as tolerated (With walker) Keep extremity elevated above heart level: Operative Extremity Dressing / Incision Call your doctor if your incision/area has: Continuous Slow Oozing, Sudden Increased Bleeding, Increased Pain/ Swelling, Increased Redness and Foul Smelling Discharge Call your doctor if you observe: Fever of 101 or Higher, Coldness, Increased Pain, Numbness or Tingling, Change in Color, Shortness of breath, Chest pain, Calf discomfort and Uncontrolled pain Remove Dressing in: 3 days (Okay to remove dressings on July 12, 2025) Additional Dressing/Incision Instructions:: Follow [facility] Post-op Instructions. Once postoperative dressing has been removed only use gentle soap and water over the incision. Do not use any ointments, Neosporin, salves, alcohol pads over the incision for 6 weeks postoperatively. Do not submerge underwater for 6 weeks postoperatively. Continue with OLE hose/elastic stockings for 2 weeks postoperatively. May remove at nighttime but needs to be placed back on the leg during the day. Do NOT use alcohol with narcotic pain medication. Do NOT make important decisions while taking narcotic medication. If you have problems with taking your medication (rash, itching, nausea, etc.) call the office at once. Follow Up Care Test Results: Test results from this visit will be discussed in further detail at your follow- up appointment, if applicable. Discharge Plan Admission Admit Date/Time: 07/07/25 06:59 Attending Provider: Sheldon Cooper Primary Care Provider: Aime Pedro Consulting Providers: Wily Khan; Sylvester Painting Discharge Orders/Prescriptions Prescriptions: New acetaminophen 500 mg Tablet 1,000 mg PO TID 14 Days Qty: 84 0RF Rx Instructions: Do not take more than 3000 mg Tylenol in a 24-hour period. aspirin 81 mg tablet,delayed release (DR/EC) 81 mg PO BIDCM 30 Days Qty: 60 0RF Rx Instructions: Take 81 mg aspirin twice daily for 4 weeks postoperatively for DVT prophylaxis. doxycycline monohydrate 100 mg Capsule 100 mg PO BID 13 Days Qty: 26 0RF Rx Instructions: Take for 2 weeks postoperatively tramadol 50 mg Tablet 50 - 100 mg PO Q6H PRN PRN (Reason: as needed for breakthrough pain) 7 Days Qty: 42 0RF Rx Instructions: Take 1-2 tablets every 6 hours as needed for breakthrough pain. famotidine 20 mg Tablet 20 mg PO DAILY 30 Days Qty: 30 0RF meloxicam 7.5 mg Tablet 7.5 mg PO BID 30 Days Qty: 0 0RF Rx Instructions: Do not take any other nonsteroidal anti-inflammatories while using meloxicam/Mobic. Continued carvedilol 12.5 mg tablet 12.5 mg PO BID Rx Instructions: must administer with a meal/food lisinopril-hydrochlorothiazide [Zestoretic] 1 EACH tablet 1 ea PO DAILY rosuvastatin 5 mg tablet 5 mg PO DAILY cholecalciferol (vitamin D3) [Vitamin D3] 25 mcg (1,000 unit) capsule 25 mcg PO DAILY Discontinued meloxicam 7.5 mg tablet 7.5 mg PO BID Referrals / Follow Up: Morenita Jennings MD [Med Staff - Electric[facility] Office, Family Practice] Vanessa Godinez PA [Med Staff - [facility] Prof, Orthopedics] - 07/21/25 1:45 pm Disposition Disposition (needs filled in before D/C Order can be placed): [facility]
--- NOTE | 2025-07-09 10:28 | TREXTCAR_ITS ---
Diet Diet Order/Speech Therapy: INPATIENT Hospital Diet / Speech Therapy Order(s) 07/07/25 13:47 Diet: Regular - General Routine Orders/Code Status Code Status: Full Code DC O2, CPAP, BIPAP needs Home O2 Discharge instructions: No Wound(s) RIGHT KNEE: Wound Type: Surgical Incision Dressing Change: AntiMicrobial (Aquacel AG, etc) (Okay to remove Mepilex dressing and distal pin site dressing on July 12, 2025. Please place nonstick pad/ABD over the incision underneath OLE hose. Change daily.) Therapies Weight Bearing: Weight bearing as tolerated (Right lower extremity with walker) Physical Therapy: Eval and Treat Occupational Therapy: Eval and Treat Problem/Diagnosis (1) Status post right knee replacement: Status: Acute Code(s): Z96.651 - Presence of right artificial knee joint Plan 1. S/P robotic assisted right total knee arthroplasty POD #2 2. Continue Pain Medications: Tylenol and meloxicam primarily for pain control. Patient was having some confusion associated with the oxycodone. Oxycodone has been discontinued. Patient has tolerated tramadol preoperatively in which she did not have any associated side effects. I will have patient use tramadol 50 mg 1 tablet every 6 hours as needed for pain from 1-5, they can use 2 tablets every 6 hours if she has pain from 5-10. The tramadol will be for breakthrough as needed pain. 3. DVT Prophylaxis: Take 81 mg aspirin twice daily for 4 weeks postoperatively for DVT prophylaxis. Patient denies past history of DVT or pulmonary embolism. She will continue with OLE hose for 2 weeks postoperatively 4. PT/OT: Weightbearing as tolerated with walker 5. H & H: Yesterday lab was 12.2/36.8, patient is asymptomatic. Vitals are stable. She did have reactive leukocytosis with white blood cell count 11.4. We are awaiting lab results today. Patient did receive Decadron intraoper atively. No clinical signs of infection. 6. Postoperative confusion: I did discontinue the oxycodone which was causing some confusion. She is alert and oriented to her name, date of and the r neil she is in the hospital. Patient thought that she was going to [facility]. We will continue to monitor this but I do believe postoperative confusion secondary to the narcotic. We will try to limit narcotics as much as possible but keeping the pain well-controlled. We did move from oxycodone and placed her on tramadol as needed. 7. Dressings: Main Mepilex dressing clean dry and intact. Trace drainage over the distal pin site dressing. Dressings will remain on for 5 days postoperatively. Plan will be to remove the dressing on Monday, July 12, 2025. Once the dressing is removed they can use a nonstick pad or ABD to place over the incision underneath the OLE hose. Okay to shower and get the dressings wet. Once the dressing has been removed still okay to shower but only use gentle soap and water over the incision for 6 weeks postoperatively. She will not use any ointments or salves or topicals on the incision for 6 weeks. No submersion underwater for 6 weeks postoperatively. 8. Currently on doxycycline for 2 weeks postoperatively due to perioperative testing in which patient tested positive for staph. I discussed with the patient potential side effects of doxycycline including sensitivity to the sunlight and increased risk of skin burn. Recommend patient take appropriate precautions. Also recommend patient to take probiotic while on the antibiotic. Patient voiced understanding agreement. 9. Encouraged Incentive Spirometry 10. Patient is aware of postoperative constipation that can occur from 1-3 days postoperatively. Patient has been able to have a bowel movement while in the hospital. We will now use [id number] stool softener as needed for any constipation. 11. Continue postoperative medical treatment per medicine: Medicine did sign off of the patient yesterday and she does appear to be medically stable today. 12. Disposition: Plan will be for discharge to the transitional care unit at [facility] today. Patient overall is medically stable, tolerating therapy, and pain medications are helpful. She does have approval and case was discussed with the care management team. Medications have been adjusted for pain control in which we did stop the oxycodone and place patient on as needed tramadol for breakthrough pain. Patient tolerated tramadol preoperatively without any side effects. I did discuss this with her family who was present today. Narcotic pain medication will be placed on the chart. Patient will follow-up per postoperative instructions. Upon discharge patient will contact our office with any concerns or questions. I have reviewed the [place] Automated Rx Reporting System (OARRS) report for this patient for refill pattern and other prescriber involvement as part of the appropriate surveillance for the provision of acute and chronic controlled medications. The report was requested and reviewed on the date of this entry and was considered in the prescribing process. This dictation was created using voice recognition software. Phonetic and/or grammatical errors may exist. Allergies/Procedures Done in Hospital Allergies No Known Allergies Allergy (Verified 07/07/25 09:01) Procedures: - (Robotic assisted right total knee arthroplasty: July 07, 2025) Type of Care/Length of Stay Estimated LOS: Convalescent Care Less Than 30 days Type of Care Needed: Skilled Rehab Potential: Good Prognosis: Good Additional Orders/Day of Discharge Day of Discharge: 07/09/25 Discharge Plan Admission Admit Date/Time: 07/07/25 06:59 Attending Provider: Sheldon Cooper Primary Care Provider: Aime Pedro Consulting Providers: Wily Khan; Sylvester Painting Discharge Orders/Prescriptions Prescriptions: New acetaminophen 500 mg Tablet 1,000 mg PO TID 14 Days Qty: 84 0RF Rx Instructions: Do not take more than 3000 mg Tylenol in a 24-hour period. aspirin 81 mg tablet,delayed release (DR/EC) 81 mg PO BIDCM 30 Days Qty: 60 0RF Rx Instructions: Take 81 mg aspirin twice daily for 4 weeks postoperatively for DVT prophylaxis. doxycycline monohydrate 100 mg Capsule 100 mg PO BID 13 Days Qty: 26 0RF Rx Instructions: Take for 2 weeks postoperatively tramadol 50 mg Tablet 50 - 100 mg PO Q6H PRN PRN (Reason: as needed for breakthrough pain) 7 Days Qty: 42 0RF Rx Instructions: Take 1-2 tablets every 6 hours as needed for breakthrough pain. famotidine 20 mg Tablet 20 mg PO DAILY 30 Days Qty: 30 0RF meloxicam 7.5 mg Tablet 7.5 mg PO BID 30 Days Qty: 0 0RF Rx Instructions: Do not take any other nonsteroidal anti-inflammatories while using meloxicam/Mobic. Continued carvedilol 12.5 mg tablet 12.5 mg PO BID Rx Instructions: must administer with a meal/food lisinopril-hydrochlorothiazide [Zestoretic] 1 EACH tablet 1 ea PO DAILY rosuvastatin 5 mg tablet 5 mg PO DAILY cholecalciferol (vitamin D3) [Vitamin D3] 25 mcg (1,000 unit) capsule 25 mcg PO DAILY Discontinued meloxicam 7.5 mg tablet 7.5 mg PO BID Referrals / Follow Up: Morenita Jennings MD [Med Staff - Rehabilitation Supervisor, Family Practice] Vanessa Godinez PA [Med Staff - [facility] Practice Prof, Orthopedics] - 07/21/25 1:45 pm Disposition Disposition (needs filled in before D/C Order can be placed): [facility]
--- NOTE | 2025-07-09 10:47 | PHA.DC.MR.R ---
Pharmacy [place] Med Reconciliation Pharmacy Service has performed discharge medication reconciliation for this patient. The patient's discharge medication list was reviewed for discrepancies and discrepancies were resolved. Medications at Discharge Home Medications lisinopril 20 mg-hydrochlorothiazide 12.5 mg tablet (Zestoretic) 1 ea PO DAILY 04/11/17 carvedilol 12.5 mg tablet 12.5 mg PO BID 02/12/24 cholecalciferol (vitamin D3) 25 mcg (1,000 unit) capsule (Vitamin D3) 25 mcg PO DAILY 06/10/25 rosuvastatin 5 mg tablet 5 mg PO DAILY 06/10/25 acetaminophen 500 mg tablet 1,000 mg (2 x 500 mg) PO TID 14 days #84 tabs 07/09/25 aspirin 81 mg tablet,delayed release 81 mg PO BIDCM 30 days #60 tabs 07/09/25 doxycycline monohydrate 100 mg capsule 100 mg PO BID 13 days #26 caps 07/09/25 famotidine 20 mg tablet 20 mg PO DAILY 30 days #30 tabs 07/09/25 meloxicam 7.5 mg tablet 7.5 mg PO BID 30 days #0 tabs 07/09/25 tramadol 50 mg tablet 50 - 100 mg (1 - 2 x 50 mg) PO Q6H PRN PRN as needed for breakthrough pain 7 days #42 tabs 07/09/25
[2025-07-09 11:00] LABS: Hematocrit 36.8 % (37-47); Hemoglobin 12.2 g/dL (12.0-15.0); Immature Granulocytes Count 0.050 X10^3/uL (0.0-0.0); Mean Corp Hgb Conc 33.2 g/dL (32-36); Mean Corpuscular Volume 94.8 fL (81-99); Mean Platelet Vol. 10.1 fl (6.2-12.0); NRBC Flagged by Analyzer 0 % (0-5); Platelet Count 283 K/mm3 (150-450); RBC Distribution Width CV 13.1 % (11.6-14.6); RBC Distribution Width SD 44.8 fl (35.1-43.9); Red Blood Count 3.88 M/mm3 (4.2-5.4); White Blood Count 10.2 K/mm3 (4.4-11.0)
--- NOTE | 2025-07-09 11:00 | CASEMGMT ---
Received signed med list, rx and trf to extended care. Tub[facility], updated admissions. Pt nurse aware ok to call report. RN CM into pt room, pt sitting up in chair. Pt aware that she will be dc'd to [facility] today. Pt with visitors in room. She was made aware that this RN CM would call Tamera as requested yesterday, visitor Jennie spoke up and states that she will call her. Pt agreeable to this. Plan: [facility]
[2025-07-09 11:22] LABS: Anion Gap 12 (5-15); BUN 25 mg/dL (4-19); BUN/Creat Ratio 37.0 RATIO (10-20); Calcium,Total 8.9 mg/dL (7.6-11.0); Carbon Dioxide 23.0 mmol/L (21.0-32.0); Chloride 103 mmol/L (98-108); Estimated Creatinine Clearance 49.44 ml/min (50-250); Glucose 121 mg/dL (70-99); Potassium 3.6 mmol/L (3.3-5.1)
== END 2025-07-09 13:00 | disposition skilled nursing facility (03) ==
LOC: ACINP 09:38 → MS3 14:13 → SDC 07-08 09:15 → ACINP 07-08 09:15 → AC 07-08 09:16 → SDC 07-08 09:16 → MS3 07-08 09:16
PROVIDERS: Anesthesiology; Admitting Provider Specialist; PCP Family Medicine; Referring Provider Specialist; Visit Provider Specialist
PROC: 0SRC0JZ Replacement of Right Knee Joint with Synthetic Substitute, Open Approach (ICD-10-PCS; CPT 27447; principal; 2025-07-07 10:00)
DX: M17.11 Unilateral primary osteoarthritis, right knee (principal); E78.00 Pure hypercholesterolemia, unspecified; I10 Essential (primary) hypertension; L30.9 Dermatitis, unspecified; M23.200 Derangement of unspecified lateral meniscus due to old tear or injury, right knee; Z79.891 Long term (current) use of opiate analgesic; Z79.899 Other long term (current) drug therapy; M23.203 Derangement of unspecified medial meniscus due to old tear or injury, right knee
CPT/HCPCS: 27447; S2900; 01402; 36415; 73560; 80048; 82040; 82962; 83735; 85025; 85027; 87081; 94668; 96361; 96365; 96366; 97162; 97166; 97530; 97535; 99221; C1776; G0378; J2405; J3475

== ENCOUNTER 2025-07-09 13:21 | Inpatient (IN) | payer MEDICARE, SELFPAY ==
[2025-07-09 13:24] VITALS: BP 183/79; PULSE 69; RESP 18; TEMP 36.8; O2SAT 96
--- NOTE | 2025-07-09 13:36 | NURSING ---
CODE STATUS DISCUSSED WITH R'. WISHES TO BE FULL CODE.
[2025-07-09 13:43] VITALS: BMI 29.5
[2025-07-09 13:45] VITALS: PULSE 69
--- NOTE | 2025-07-09 15:08 | NURSING ---
Crm Marketing Analyst Note; Activity Asset: Doug Navarro is independent in her choice of daily activities. She has her smartphone, she will talk and visit w/her friends, watch tv, read, welcomes the check airman and therapy dog when available. Staff will encourage social activities, remind her of weekly activities and respect her right to say no.
[2025-07-09] MEDS: Aspirin E.C. 81 MG Tablet PO (15:36)
--- NOTE | 2025-07-09 18:06 | NURSING ---
Pt BP 179/[address] Daniels updated N.O. for Hydralazine 25mg po x 1 dose.
[2025-07-09 18:19] VITALS: BP 179/77; PULSE 66
[2025-07-09 19:57] VITALS: BP 164/78; PULSE 65; RESP 16; O2SAT 94
[2025-07-09] MEDS: Senna/Docusate Sodium 1 Tablet 2 TABLET PO (20:04)
--- NOTE | 2025-07-09 20:49 | HP.PCM_ITS ---
HPI - General General Date of Admission: 07/09/25 Date of Service: 07/09/25 Chief Complaint: Here for rehabilitation. HPI Narrative ADRIANNA BALDERAS, is a 85 Female who presents with followin07/07/2025 Admit [facility]. 07/07/2025 Dr. Cooper performed right total knee arthroplasty. 07/07/2025 Pain control, DVT prophylaxis. PT/OT/CM for TCU, lives alone. Continue Coreg, Lisinopril HCTZ for HTN. 07/08/2025 No acute events overnight. Pain controlled. PT/OT TCU. 07/08/2025 Did well with therapy. Aspirin 81mg bid x 4 weeks DVT prophylaxis. Tylenol, Meloxicam, Oxycodone for pain. Bowel regimen. WBAT with walker. Doxycycline for pre-surgery staph screen. PT/OT TCU. 07/09/2025 Admit to TCU with debility, here for rehabilitation, strengthening, prior to discharge home alone. Her friend is present, and notes some postoperative confusion, resolved currently. [facility] Medical History (Updated 07/09/25 @ 20:[address] Gautam Daniels MD) Wears glasses History of steroid therapy Injury of head and neck Sleep apnea Non-smoker History of pain when walking Fracture of metacarpal of left hand, closed High cholesterol HTN (hypertension) Home Medications ?Medication ?Instructions ?Recorded ?Last Taken ?Type lisinopril 20 1 ea PO DAILY BP 04/11/17 History mg-hydrochlorothiazide 12.5 mg tablet (Zestoretic) carvedilol 12.5 mg tablet 12.5 mg PO BID BP 02/12/24 1 05:20 History cholecalciferol (vitamin D3) 25 25 mcg PO DAILY Supple ment 06/10/25 07/09/25 08:55 History mcg (1,000 unit) capsule (Vitamin D3) rosuvastatin 5 mg tablet 5 mg PO DAILY Cholesterol 07/06/25 History acetaminophen 500 mg tablet 1,000 mg (2 x 500 mg) PO T ID Pain 07/09/25 07/09/25 05:20 Rx 14 days #84 tabs aspirin 81 mg tablet,delayed 81 mg PO BIDCM DVT Prophy laxis 30 07/09/25 07/09/25 08:55 Rx release days #60 tabs doxycycline monohydrate 100 mg 100 mg PO BID Post Op a ntibiotic 07/09/25 07/09/25 08:55 Rx capsule 13 days #26 caps famotidine 20 mg tablet 20 mg PO DAILY GERD 30 days #30 07/09/25 07/09/25 08:55 Rx tabs meloxicam 7.5 mg tablet 7.5 mg PO BID Anti-inflammat ory 07/09/25 07/09/25 08:55 Rx 30 days #0 tabs tramadol 50 mg tablet 50 - 100 mg (1 - 2 x 50 mg) PO Q6H 07/09/25 Unknown Rx PRN PRN as needed for breakthrough pain 7 days #42 tabs Allergy/AdvReac Type Severity Reaction Status Date / Time No Known Allergies Allergy Verified 07/07/25 09:01 Surgical History (Updated 07/09/25 @ 20:[address] Gautam Daniels MD) History of total right knee replacement History of ankle surgery Hx of cholecystectomy History of tonsillectomy and adenoidectomy History of total hysterectomy with no history of abnormal cervical Papanicolaou smear Social History (Updated 07/09/25 @ 20:[address] Gautam Daniels MD) household members: none and other details: Smoking Status: Never smoker alcohol intake: current alcohol intake frequency: holidays/special occasions only substance use type: does not use ROS Constitutional Constitutional: Denies chills, fever(s) or weight gain ENT HEENT: Denies headache(s), nasal congestion or nasal discharge Cardiovascular Cardiovascular: Denies chest pain or palpitations Respiratory/Chest Respiratory/Chest: Denies cough, excessive phlegm production or shortness of breath with exertion Gastrointestinal Gastrointestinal: Denies abdominal pain, nausea or vomiting Genitourinary Genitourinary: Denies dysuria Musculoskeletal Musculoskeletal: Denies joint pain or joint swelling Integumentary Integumentary: Denies rash or wounds Neurologic Neurologic: Denies focal weakness, numbness or tingling Psychiatric Psychiatric: Denies anxiety, auditory hallucinations, depression, homicidal ideation or suicidal ideation Vital Signs Vital Signs Vital Signs: 07/09/25 13:24 07/09/25 13:45 07/09/25 18:19 Temperature 98.2 F Temperature Source Temporal Pulse Rate 69 69 66 Pulse Rhythm Irregular Pulse Strength Normal (2+) Respiratory Rate 18 Respiratory Effort Normal Non-Labored Respiratory Depth Normal Respiratory Pattern Normal Blood Pressure 183/79 H 179/77 H Blood Pressure Mean 113 111 Blood Pressure Source Monitor Blood Pressure Position Semi-Fowlers Sitting Blood Pressure Location Right Arm Left Arm Pulse Ox 96 Oxygen Delivery Method Room Air Room Air 07/09/25 19:57 07/09/25 19:57 Temperature Temperature Source Pulse Rate 65 65 Pulse Rhythm Pulse Strength Respiratory Rate 16 Respiratory Effort Respiratory Depth Respiratory Pattern Blood Pressure 164/78 H 164/78 H Blood Pressure Mean 106 Blood Pressure Source Monitor Blood Pressure Position Semi-Fowlers Blood Pressure Location Left Arm Pulse Ox 94 Oxygen Delivery Method Room Air Weight Weight: 73.142 kg Body Mass Index (BMI) 29.5 Physical Exam Const alert General Appearance: cooperative HEENT normocephalic Eyes PERRL and EOMs intact bilaterally Neck supple, no JVD and no carotid bruits Resp normal respiratory effort, normal air movement and clear to auscultation bilaterally Cardio regular rate and regular rhythm GI normal to inspection, nondistended, normoactive bowel sounds, non-tender and non-distended Extremity normal capillary refill General Extremity: Negative for edema Skin no rashes or lesions noted General Skin Exam: no breakdown Psych affect normal Appearance: appropriate Assessment & Plan Assessment/Plan (1) Debility: (2) Status post right knee replacement: (3) Essential (primary) hypertension: (4) Hyperlipidemia, unspecified: (5) Osteoarthritis of right knee: (6) Vitamin D deficiency: PLAN: Plan 85 year old female with below past medical history underwent right total knee arthroplasty with Dr. Cooper 07/07/2025, postoperative course uncomplicated, admitted to TCU with debility, here for rehabilitation, strengthening, prior to discharge home alone. * Debility - PT/OT. * Pain - Tylenol 1000mg tid, Tramadol 50 to 100mg q6 prn. * Bowel - Miralax 17gm daily, Senna/colace 2 tablets bid. * Adult immunization - Administer pneumonia vaccine, covid vaccine, flu vaccine as appropriate. * DVT prophylaxis - Aspirin 81mg bid thru 08/06/2025. * Hypertension - Coreg 12.5mg bid, Losartan 100mg daily, HCTZ 25mg daily, Amlodipine 10mg daily. * Hyperlipidemia - Atorvastatin 10mg qhs. * Vitamin D deficiency - D3 25mcg daily. * Staph - Doxycycline 100mg bid thru 07/22/2025. * GERD - Famotidine 20mg daily. * Skin irritation - Calmoseptine topical bid. * Tinea Corporis - Nystatin powder topical bid.
[2025-07-10 07:26] LABS: Hematocrit 37.2 % (37-47); Hemoglobin 12.4 g/dL (12.0-15.0); Immature Granulocytes Count 0.050 X10^3/uL (0.0-0.0); Mean Corp Hgb Conc 33.3 g/dL (32-36); Mean Corpuscular Volume 94.2 fL (81-99); Mean Platelet Vol. 9.8 fl (6.2-12.0); NRBC Flagged by Analyzer 0 % (0-5); Platelet Count 275 K/mm3 (150-450); RBC Distribution Width CV 12.8 % (11.6-14.6); RBC Distribution Width SD 44.6 fl (35.1-43.9); Red Blood Count 3.95 M/mm3 (4.2-5.4); White Blood Count 10.0 K/mm3 (4.4-11.0)
[2025-07-10 07:51] LABS: Anion Gap 15 (5-15); BUN 25 mg/dL (4-19); BUN/Creat Ratio 37.1 RATIO (10-20); Calcium,Total 9.0 mg/dL (7.6-11.0); Carbon Dioxide 21.5 mmol/L (21.0-32.0); Chloride 101 mmol/L (98-108); Estimated Creatinine Clearance 49.89 ml/min (50-250); Glucose 107 mg/dL (70-99); Potassium 3.3 mmol/L (3.3-5.1)
[2025-07-10 08:23] VITALS: BP 136/74; PULSE 741; RESP 18; TEMP 36.4; O2SAT 94
[2025-07-10] MEDS: Aspirin E.C. 81 MG Tablet PO ×2 (08:29→17:09)
[2025-07-10] MEDS: Cholecalciferol (VIT D3) 25 MCG TABLET (1,000 UNITS) PO (08:29)
[2025-07-10] MEDS: Polyethylene Glycol 3350 17 GM PACKET PO (08:30)
[2025-07-10] MEDS: Senna/Docusate Sodium 1 Tablet 2 TABLET PO ×2 (08:30→21:37)
[2025-07-10] MEDS: Tuberculin,Purif.prot.deriv. 50 TU/ML Vial 0.1 ML ID (08:34)
--- NOTE | 2025-07-10 13:12 | CASEMGMT ---
Social Work SW met with patient to complete initial assessment. Introduced self and role. Verified contacts. Pt confirmed code status as full code. SW educated to [facility] insurance with [employer] 07/11 and continued stay is not guaranteed with each review; a 3-day notice is provided for DC. Pt's goal is to return home alone. SW will continue to follow for DC planning. Araceli Prabhakar MARKETING PRODUCTION MANAGER STORAGE ADMINISTRATOR
--- NOTE | 2025-07-10 15:04 | NURSING ---
pt found self transferring. pt educated on the importance of always using call light and that she is an increase risk for falls. pt stated she would use the call light. Will continue to monitor.
[2025-07-10 17:10] VITALS: BP 114/62; PULSE 59
--- NOTE | 2025-07-10 17:10 | PCM.PN.DRR ---
Documented by User: Kee Su 07/10/25 17:22 TCU RX Drug Regimen Review Subjective/Objective Subjective/Objective Subjective: TCU admission note. 85 year old female with below past medical history underwent right total knee arthroplasty with Dr. Cooper 07/07/2025, postoperative course uncomplicated, admitted to TCU with debility, here for rehabilitation, strengthening, prior to discharge home alone. Objective: Allergies No Known Allergies Allergy (Verified 07/07/25 09:01) Current Medications Generic Name Dose Route Start Last Admin Trade Name Nolberto PRN Reason Stop Dose Admin Acetaminophen 1,000 mg 07/09/25 14:00 07/10/25 15:26 Acetaminophen 500 Mg Tablet PO 1,000 mg TID BUZZ Administration Amlodipine Besylate 10 mg 07/10/25 10:00 07/10/25 08:28 Amlodipine 10 Mg Tablet PO 10 mg DAILY BUZZ Administration Protocol Aspirin 81 mg 07/09/25 17:00 07/10/25 17:09 Aspirin E.C. 81 Mg Tablet PO 08/06/25 17:01 81 mg BIDCM BUZZ Administration Atorvastatin Calcium 10 mg 07/09/25 22:00 07/09/25 20:00 Atorvastatin Calcium 10 Mg Tablet PO 10 mg QHS BUZZ Administration Calamine/Phenol 1 applic 07/09/25 22:00 07/10/25 08:29 Menthol/Lanolin/Calamine/Znox 113 Gm Tube TOPICAL 1 applic BID BUZZ Administration Protocol Carvedilol 12.5 mg 07/09/25 17:00 07/10/25 17:08 Carvedilol 12.5 Mg Tablet PO 12.5 mg BIDCM BUZZ Administration Protocol Cholecalciferol 25 mcg 07/10/25 10:00 07/10/25 08:29 Cholecalciferol (Vit D3) 25 Mcg Tablet (1,000 Units) PO 25 mcg DAILY BUZZ Administration Doxycycline Monohydrate 100 mg 07/09/25 22:00 07/10/25 08:28 Doxycycline 100 Mg Capsule PO 07/22/25 10:01 100 mg BID BUZZ Administration Famotidine 20 mg 07/10/25 10:00 07/10/25 08:29 Famotidine 20 Mg Tablet PO 20 mg DAILY BUZZ Administration Hydrochlorothiazide 25 mg 07/10/25 10:00 07/10/25 08:28 Hydrochlorothiazide 25 Mg Tablet PO 25 mg DAILY BUZZ Administration Protocol Losartan Potassium 100 mg 07/10/25 10:00 07/10/25 08:28 Losartan Potassium 100 Mg Tablet PO 100 mg DAILY BUZZ Administration Protocol Nystatin 1 applic 07/09/25 22:00 07/10/25 08:30 Nystatin Powder 15gm Bottle TOPICAL 1 applic BID BUZZ Administration Protocol Polyethylene Glycol 17 gm 07/10/25 10:00 07/10/25 08:30 Polyethylene Glycol 3350 17 Gm Packet PO 17 gm DAILY BUZZ Administration Senna/Docusate Sodium 2 tablet 07/09/25 22:00 07/10/25 08:30 Senna/Docusate Sodium 1 Tablet PO 2 tablet BID BUZZ Administration Sodium Chloride 10 - 40 ml 07/09/25 13:30 0.9% Saline Lock 10 Ml Syringe IV UD PRN SALINE FLUSH Tramadol HCl 50 - 100 mg 07/09/25 13:50 07/10/25 06:36 Tramadol 50 Mg Tablet PO 50 mg Q6H PRN PRN Administration as needed for breakthrough danielle Tuberculin PPD 0.1 ml 07/17/25 10:00 Tuberculin,Purif.Prot.Deriv. 50 Tu/Ml Vial ID 07/17/25 10:01 X1 ONE Problem List Vitamin D deficiency (Acute) Osteoarthritis of right knee (Acute) Hyperlipidemia, unspecified (Acute) Essential (primary) hypertension (Acute) Debility (Acute) Status post right knee replacement (Acute) Vital Signs Temp Pulse Resp BP Pulse Ox O2 Del Method 97.5 F L 741 H 18 136/74 H 94 Room Air 07/10/25 08:23 07/10/25 08:23 07/10/25 08:23 07/10/25 08:23 07/10/25 08:23 07/10/25 11:04 Oxygen Delivery Method Room Air Weight: 73.142 kg Body Mass Index (BMI) 29.5 Sodium 137 mmol/L (133-145) 07/10/25 07:10 Potassium 3.3 mmol/L (3.3-5.1) 07/10/25 07:10 Chloride 101 mmol/L (98-108) 07/10/25 07:10 Carbon Dioxide 21.5 mmol/L (21.0-32.0) 07/10/25 07:10 Anion Gap 15 (5-15) 07/10/25 07:10 BUN 25 mg/dL (4-19) H 07/10/25 07:10 Creatinine 0.67 mg/dL (0.70-1.20) L 07/10/25 07:10 Est GFR (MDRD) Non-Af 87 (>60) 07/10/25 07:10 BUN/Creatinine Ratio 37.1 RATIO (10-20) H 07/10/25 07:10 Glucose 107 mg/dL (70-99) H 07/10/25 07:10 Assessment/Plan: 1. Pain: acetaminophen 1000 mg PO TID, tramadol 50-100 mg PO Q6H PRN pain. The patient has required 1 dose of 50 mg tramadol so far this admission. Please continue to monitor pain levels, for PRN medication usage, LFTs (no recent LFTs documented), renal function (serum creatinine = 0.67 mg/dL with creatinine clearance ~ 50 mL/min on 07/10/25), for seizures, for respiratory depression, for dizziness/drowsiness, for constipation, and for syncope/ataxia/falls. 2. Bowel: polyethylene glycol 17 grams PO daily, senna/docusate 2 tablets PO BID. Please continue to monitor for bowel movements (last documented = 07/10/25), for constipation and diarrhea. 3. DVT prophylaxis: aspirin 81 mg PO BID through 08/06/25. Please continue to monitor for s/s of a DVT such as pain/erythema/edema in an extremity, for s/s of bleeding/excessive bruising, for GI distress, hemoglobin levels (Hgb = 12.4 g/dL on 07/10/25), and platelet counts (plt = 275 K/mm3 on 07/10/25). 4. Staph: doxycycline 100 mg PO BID through 07/22/25. Please continue to monitor for s/s of an infection such as fever/chills (T = 97.5 F on 07/10/25), erythema, edema, white blood cell counts (WBC = 10.0 K/mm3 on 07/10/25), for GI distress with doxycycline administration, and for photosensitivity. 5. Hypertension: amlodipine 10 mg PO daily, carvedilol 12.5 mg PO BID with meals, hydrochlorothiazide 25 mg PO daily, losartan 100 mg PO daily. Please continue to monitor blood pressures (recent range = 107-183/60-79 mmHg), heart rates (recent range = 53-69 beats/min), for lower extremity edema, for fatigue, renal function (serum creatinine = 0.67 mg/dL with creatinine clearance ~ 50 mL/min on 07/10/25), potassium levels (K = 3.3 mmol/L on 07/10/25), sodium levels (Na = 137 mmol/L on 07/10/25), and calcium levels (Ca = 9.0 mg/dL on 07/10/25). 6. Hyperlipidemia: atorvastatin 10 mg PO QHS. Please continue to monitor lipide levels (cholesterol = 180 mg/dL with LDL = 93 mg/dL on 05/20/24), LFTs (no recent LFTs documented), and for myalgias. 7. GERD: famotidine 20 mg PO daily. Please continue to monitor for s/s of GERD, renal function (serum creatinine = 0.67 mg/dL with creatinine clearance ~ 50 mL/min on 07/10/25), platelet counts (plt = 275 K/mm3 on 07/10/25), and for s/s of delirium. 8: vitamin D deficiency: cholecalciferol 25 mcg PO daily. Please continue to monitor vitamin D levels (vitamin D = 29.2 ng/mL on 05/20/24), and for s/s of vitamin D deficiency. 9. Skin irritation/tinea corporis: nystatin powder 1 application topically BID, calmoseptine 1 application topically BID. Please continue to monitor for resolution of tinea corporis and for skin irritation. Assessment/Plan for indications treated with psychotropic medications: NA Medical chart and medication regimen reviewed. The following medication irregularities or issues were identified: No recommendations for resident at this time. Date Date of Note: 07/10/25 Documented by User: Dr. Gautam Daniels MD 07/10/25 17:36 TCU RX Drug Regimen Review Provider Comments Provider responsibility Provider Comments to Recommendations by Pharmacy Agree
--- NOTE | 2025-07-10 18:00 | RAD_ITS ---
PROCEDURE: ABDOMEN SINGLE VIEW 07/10/2025 REASON FOR EXAM: NAUSEA/VOMITING. TECHNIQUE: Procedure Code: RADABD Modality: DX Procedure: ABDOMEN SINGLE VIEW COMPARISON: None. FINDINGS: Bowel gas: Unremarkable. Calcifications: No abnormal calcifications. Bones: No acute bony abnormalities. Multilevel degenerate changes of the lumbar spine. RAD/Abdomen Single View IMPRESSION: Unremarkable bowel gas pattern. No acute findings on abdominal x-ray. Reading Location: [id number]
[2025-07-11 00:24] LABS: Mucous, Urine 0 SEEN /hpf (<or=2+); Red Blood Cells-Urine 0 SEEN /hpf (0-5); Squamous Epithelial Cells - UA 0 SEEN /hpf (5-10)
[2025-07-11 00:44] LABS: Color, Urine Yellow (Yellow); Glucose, Dipstick Normal (Normal); Ketone-Dipstick Negative (Negative); Leukocyte Esterase-Dipstick Negative /ul (Negative); Nitrite-Dipstick Negative (Negative); Occult Blood-Urine 25 /ul (Negative); Protein-Dipstick 15 mg/dl (Negative); Specific Gravity, Urine 1.010 (1.002-1.030); Urine Bilirubin Dipstick Negative (Negative)
[2025-07-11 08:56] VITALS: BP 119/61; PULSE 60; RESP 17; TEMP 36.3; O2SAT 92
[2025-07-11] MEDS: Aspirin E.C. 81 MG Tablet PO ×2 (09:08→16:39)
[2025-07-11] MEDS: Polyethylene Glycol 3350 17 GM PACKET PO (09:08)
[2025-07-11] MEDS: Senna/Docusate Sodium 1 Tablet 2 TABLET PO ×2 (09:09→20:29)
[2025-07-11] MEDS: Cholecalciferol (VIT D3) 25 MCG TABLET (1,000 UNITS) PO (09:09)
--- NOTE | 2025-07-11 11:56 | NURSING ---
attempted to return Naz's call to provide update- disconnected 1st call- 2nd call no answer- left message
--- NOTE | 2025-07-11 14:23 | CHAPLAIN ---
Type of Pastoral Visit _x__ Initial Visit ___ Follow-up Visit ___ On-call Visit ___ General Patient Visit ___ Spiritual Assessment ___ Family Conference ___ Bereavement ___ Rapid Response ___ Code Blue ___ Other (describe below) Pastoral Care Referral From _x__ Patient ___ Family ___ Nurse ___ Physician ___ Head Grinder ___ Water Aerobics Instructor ___ Other (describe below) Sacrament/Intervention _x__ Active listening ___ Anointing ___ Presybeterian ___ Bereavement ___ Communion ___ Caity exploration ___ _x__ Life review _x__ Prayer ___ Reconciliation ___ Sacrament of Sick _x__ Supportive presence ___ Wedding ___ Other (describe below) Pastoral Comments patient is welcoming and pleasant; pt is honest with feelings of 'hard work in therapy' and being 'tired from the exercises'; pt speaks of determination to get home however; 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
[2025-07-11 16:42] VITALS: BP 112/62; PULSE 60
[2025-07-12 08:29] VITALS: BP 111/57; RESP 17; TEMP 36.2; O2SAT 94
[2025-07-12] MEDS: Aspirin E.C. 81 MG Tablet PO ×2 (08:55→16:29)
[2025-07-12] MEDS: Cholecalciferol (VIT D3) 25 MCG TABLET (1,000 UNITS) PO (08:57)
[2025-07-12] MEDS: Senna/Docusate Sodium 1 Tablet 2 TABLET PO ×2 (08:57→20:36)
[2025-07-12] MEDS: Polyethylene Glycol 3350 17 GM PACKET PO (08:57)
[2025-07-13 08:48] VITALS: BP 118/53; PULSE 58; RESP 16; TEMP 36.2; O2SAT 95
[2025-07-13] MEDS: Aspirin E.C. 81 MG Tablet PO ×2 (09:08→16:25)
[2025-07-13] MEDS: Senna/Docusate Sodium 1 Tablet 2 TABLET PO ×2 (09:09→21:35)
[2025-07-13] MEDS: Cholecalciferol (VIT D3) 25 MCG TABLET (1,000 UNITS) PO (09:09)
[2025-07-13] MEDS: Polyethylene Glycol 3350 17 GM PACKET PO (09:10)
[2025-07-13 16:23] VITALS: BP 106/53; PULSE 56
[2025-07-14 08:56] VITALS: BP 117/60; PULSE 61; RESP 16; TEMP 36.1; O2SAT 94
[2025-07-14] MEDS: Aspirin E.C. 81 MG Tablet PO ×2 (08:58→16:21)
[2025-07-14] MEDS: Polyethylene Glycol 3350 17 GM PACKET PO (08:59)
[2025-07-14] MEDS: Cholecalciferol (VIT D3) 25 MCG TABLET (1,000 UNITS) PO (09:00)
[2025-07-14] MEDS: Senna/Docusate Sodium 1 Tablet 2 TABLET PO ×2 (09:00→21:22)
--- NOTE | 2025-07-14 14:07 | CASEMGMT ---
Social Work Insurance issued LCD 07/16, DC 07/17 SW spoke with pt to inform of DC date. SW provided NOMNC to pt and educated to appeal rights. Pt verbalized understanding and denied appeal. Pt is agreeable to DC. Pt also denied having POC meeting now that there is a DC date. IDT updated. SW offered HHC vs OP therapy and DME needs. Pt prefers HHC. SW provided list of skilled HHC agencies within geographical area, [place] with insurance, that include quality and resource data via [employer] guide. Pt to review and notify this worker of preferences. SW educated HHC agency will contact pt for SOC date date, but typically 2-3 days after DC, pending PCP signing orders. Pt has no DME needs and friend will transport. Plan: DC home alone 07/17, HHC PT/OT Araceli GOLDSMITHW
[2025-07-14] MEDS: COVID VAC 25-26 (12UP)(MOD)/PF 50 MCG/0.5 ML SYRINGE IM (16:23)
[2025-07-14 16:40] VITALS: PULSE 61; RESP 18; O2SAT 97
[2025-07-14 21:20] VITALS: PULSE 70; RESP 16
[2025-07-15 06:14] VITALS: PULSE 78; RESP 16
[2025-07-15 07:52] VITALS: BP 124/61; PULSE 58; RESP 18; TEMP 36.4; O2SAT 93
--- NOTE | 2025-07-15 08:16 | DS.PCM_ITS ---
Providers Date of Admission: 07/09/25 Primary Care Physician: Aime Pedro MD Reason For Visit: R TOTAL KNEE Diagnosis Discharge Diagnosis (1) Debility: Status: Acute Code(s): R53.81 - Other malaise (2) Status post right knee replacement: Status: Acute Code(s): Z96.651 - Presence of right artificial knee joint (3) Essential (primary) hypertension: Status: Acute Code(s): I10 - Essential (primary) hypertension (4) Hyperlipidemia, unspecified: Status: Acute Code(s): E78.5 - Hyperlipidemia, unspecified (5) Osteoarthritis of right knee: Status: Acute Code(s): M17.11 - Unilateral primary osteoarthritis, right knee (6) Vitamin D deficiency: Status: Acute Code(s): E55.9 - Vitamin D deficiency, unspecified Plan 85 year old female with below past medical history underwent right total knee arthroplasty with Dr. Cooper 07/07/2025, postoperative course uncomplicated, admitted to TCU with debility, here for rehabilitation, strengthening, prior to discharge home alone. * Debility - PT/OT. * Pain - Tylenol 1000mg tid, Tramadol 50 to 100mg q6 prn. * Bowel - Miralax 17gm daily, Senna/colace 2 tablets bid. * Adult immunization - Administer pneumonia vaccine, covid vaccine, flu vaccine as appropriate. * DVT prophylaxis - Aspirin 81mg bid thru 08/06/2025. * Hypertension - Coreg 12.5mg bid, Losartan 100mg daily, HCTZ 25mg daily, Amlodipine 10mg daily. * Hyperlipidemia - Atorvastatin 10mg qhs. * Vitamin D deficiency - D3 25mcg daily. * Staph - Doxycycline 100mg bid thru 07/22/2025. * GERD - Famotidine 20mg daily. * Skin irritation - Calmoseptine topical bid. * Tinea Corporis - Nystatin powder topical bid. Medications at Discharge Home Medications carvedilol 12.5 mg tablet 12.5 mg PO BID BP 02/12/24 cholecalciferol (vitamin D3) 25 mcg (1,000 unit) capsule (Vitamin D3) 25 mcg PO DAILY Supplement 06/10/25 rosuvastatin 5 mg tablet 5 mg PO DAILY Cholesterol 06/10/25 acetaminophen 500 mg tablet 1,000 mg (2 x 500 mg) PO TID Pain 14 days #84 tabs 07/09/25 famotidine 20 mg tablet 20 mg PO DAILY GERD 30 days #30 tabs 07/09/25 tramadol 50 mg tablet 50 - 100 mg (1 - 2 x 50 mg) PO Q6H PRN PRN as needed for breakthrough pain 7 days #42 tabs 07/09/25 amlodipine 10 mg tablet 10 mg PO DAILY 30 days #30 tabs 07/15/25 aspirin 81 mg tablet,delayed release 81 mg PO BIDCM 20 days #0 tabs 07/15/25 doxycycline monohydrate 100 mg capsule 100 mg PO BID 5 days #10 caps 07/15/25 hydrochlorothiazide 25 mg tablet 25 mg PO DAILY 30 days #30 tabs 07/15/25 losartan 100 mg tablet 100 mg PO DAILY 30 days #30 tabs 07/15/25 sennosides 8.6 mg-docusate sodium 50 mg tablet (Stimulant Laxative Plus) 2 tab PO BID 30 days #120 tabs 07/15/25 Hospital Course Operations total knee replacement (Right.) Procedures None Summary of Care Provided Minutes Spent on Discharge: 35 Hospital Course: 85 year old female with below past medical history underwent right total knee arthroplasty with Dr. Cooper 07/07/2025, postoperative course uncomplicated, admitted to TCU with debility, here for rehabilitation, strengthening, prior to discharge home alone. Discharge home alone 07/17/2025, [facility] PT/OT. Physical Exam Const alert General Appearance: cooperative HEENT normocephalic Eyes PERRL and EOMs intact bilaterally Neck supple, no JVD and no carotid bruits Resp normal respiratory effort, normal air movement and clear to auscultation bilaterally Cardio regular rate and regular rhythm GI normal to inspection, nondistended, normoactive bowel sounds, non-tender and non-distended Extremity normal capillary refill General Extremity: Negative for edema Skin no rashes or lesions noted General Skin Exam: no breakdown Psych affect normal Appearance: appropriate Weight / BMI Weight Weight: 73.142 kg Body Mass Index (BMI) 29.5 ABG / Lab / Microbiology Data 07/10/25 07:10 07/10/25 07:10 Microbiology: Microbiology 07/14/25 06:18 Nasal Secretion SARS-CoV-2 Antigen (Rapid) - Final 07/11/25 00:14 Urine, Catheterized Urine Culture - Final Culture exhibits no growth. 10/04/25 06:26 Nasal Secretion SARS-CoV-2 Antigen (Rapid) - Final 07/10/25 05:08 Nasal Secretion SARS-CoV-2 Antigen (Rapid) - Final D/C Instructions Discharge Activity: Return to Normal Activity, May Shower and Use Walker Weight Bearing Status: Weight bearing as tolerated Call your doctor if you observe: Fever of 101 or Higher, Inability to urinate, Inability to have a bowel movement, Shortness of breath, Dizziness, Fainting spells, Swelling in the ankles, Chest pain and Uncontrolled pain DC O2, CPAP, BIPAP Needs Home O2 Discharge instructions: No Additional Instructions: Discharge home alone 07/17/2025, [facility] PT/OT. Please Follow Up With: Vanessa Godinez When: As scheduled. Meaningful Use Info Meaningful Use Meaningful Use Diagnoses (Choose all that apply): None applicable Discharge Plan Admission Admit Date/Time: 07/09/25 13:21 Primary Reason for Your Visit: Debility. Attending Provider: Gautam Daniels Chi Primary Care Provider: Aime Pedro Instructions Additional Instructions / Restrictions: Discharge home alone 07/17/2025, [facility] PT/OT. Discharge Orders/Prescriptions Prescriptions: New aspirin 81 mg Tablet,Delayed Release (Dr/Ec) 81 mg PO BIDCM 20 Days Qty: 0 0RF amlodipine 10 mg Tablet 10 mg PO DAILY 30 Days Qty: 30 0RF sennosides-docusate sodium [Stimulant Laxative Plus] 8.6-50 mg Tablet 2 tab PO BID 30 Days Qty: 120 0RF doxycycline monohydrate 100 mg Capsule 100 mg PO BID 5 Days Qty: 10 0RF hydrochlorothiazide 25 mg Tablet 25 mg PO DAILY 30 Days Qty: 30 0RF losartan 100 mg Tablet 100 mg PO DAILY 30 Days Qty: 30 0RF Continued carvedilol 12.5 mg tablet 12.5 mg PO BID Rx Instructions: must administer with a meal/food rosuvastatin 5 mg tablet 5 mg PO DAILY cholecalciferol (vitamin D3) [Vitamin D3] 25 mcg (1,000 unit) capsule 25 mcg PO DAILY acetaminophen 500 mg Tablet 1,000 mg PO TID 14 Days Qty: 84 0RF Rx Instructions: Do not take more than 3000 mg Tylenol in a 24-hour period. tramadol 50 mg Tablet 50 - 100 mg PO Q6H PRN PRN (Reason: as needed for breakthrough pain) 7 Days Qty: 42 0RF Rx Instructions: Take 1-2 tablets every 6 hours as needed for breakthrough pain. famotidine 20 mg Tablet 20 mg PO DAILY 30 Days Qty: 30 0RF Discontinued lisinopril-hydrochlorothiazide [Zestoretic] 1 EACH tablet 1 ea PO DAILY aspirin 81 mg tablet,delayed release (DR/EC) 81 mg PO BIDCM 30 Days Qty: 60 0RF Rx Instructions: Take 81 mg aspirin twice daily for 4 weeks postoperatively for DVT prophylaxis. doxycycline monohydrate 100 mg Capsule 100 mg PO BID 13 Days Qty: 26 0RF Rx Instructions: Take for 2 weeks postoperatively meloxicam 7.5 mg Tablet 7.5 mg PO BID 30 Days Qty: 0 0RF Rx Instructions: Do not take any other nonsteroidal anti-inflammatories while using meloxicam/Mobic. Referrals / Follow Up: Aime Pedro MD [Primary Care Provider, Family Practice] - 07/22/25 2:20 pm Disposition Disposition (needs filled in before D/C Order can be placed): Home Health Service
[2025-07-15] MEDS: Polyethylene Glycol 3350 17 GM PACKET PO (08:44)
[2025-07-15] MEDS: Senna/Docusate Sodium 1 Tablet 2 TABLET PO ×2 (08:44→20:42)
[2025-07-15] MEDS: Aspirin E.C. 81 MG Tablet PO ×2 (08:45→16:51)
[2025-07-15] MEDS: Cholecalciferol (VIT D3) 25 MCG TABLET (1,000 UNITS) PO (08:46)
--- NOTE | 2025-07-15 08:46 | CASEMGMT ---
Social Work SW completed BIMS () and PHQ-2 () for MDS assessment. Araceli Prabhakar FINANCIAL ADVOCATE TAWER
--- NOTE | 2025-07-15 08:52 | CASEMGMT ---
Social Work SW followed up with pt on HHC preference. pt prefers [facility]. SW educated HHC agency will contact pt for SOC date date, but typically 2-3 days after DC, pending PCP signing orders. - [facility] phoned referral for PT/OT/SN. Araceli Prabhakar BI ARCHITECT PERSONAL COMPUTER NETWORK ANALYST
--- NOTE | 2025-07-15 13:00 | NURSING ---
Pt had a shower today with therapy. Dressing to right knee changed, ABD pad applied. Thigh high teds applied per order.
[2025-07-15 13:53] VITALS: BMI 28.0
[2025-07-16 08:02] VITALS: BP 114/65; PULSE 62; RESP 18; TEMP 36.4; O2SAT 94
[2025-07-16] MEDS: Aspirin E.C. 81 MG Tablet PO ×2 (08:06→17:52)
[2025-07-16] MEDS: Senna/Docusate Sodium 1 Tablet 2 TABLET PO ×2 (08:06→21:02)
[2025-07-16] MEDS: Polyethylene Glycol 3350 17 GM PACKET PO (08:06)
[2025-07-16] MEDS: Cholecalciferol (VIT D3) 25 MCG TABLET (1,000 UNITS) PO (08:07)
--- NOTE | 2025-07-16 08:20 | NURSING ---
Dressing to right knee changed per order. Thomas marks applied.
--- NOTE | 2025-07-16 09:53 | NURSING ---
immigration coordinator Note; MDS for 07/15/2025 Complete
[2025-07-17 00:51] VITALS: PULSE 56; RESP 16; O2SAT 96
--- NOTE | 2025-07-17 00:58 | NURSING ---
Addendum entered by Angelina Kiran 07/17/25 06:47: Patient reports pain to right posterior knee has resolved since heat compress was applied. Upon palpitation, no nodule was felt. Patient does not feel a need for intervention. Patient appreciative of this nurse for attention to the matter. This nurse encouraged patient to let staff know if pain occurs again today before discharge. Patient denies further assistance, call light in reach. Addendum entered by Angelina Kiran 07/17/25 01:58: Upon 0200 rounding, patient resting with eyes closed, did not awaken. Interventions seem to be effective for posterior right knee at this time. Original Note: Patient c/o pain to right posterior knee. Patient states, there's a knot or possibly a blood clot to the back of my leg. Upon assessment, no redness, bruising, or warmth observed to location. Upon palpitation, palpated a hard nodule with a diameter of a rl. Patient rating pain 8/10 when the area is palpated. Patient reports the onset occurred when she woke up to use the restroom past midnight this shift. This nurse offered warm washcloth to the site. Patient appreciative. Patient is on Daily aspirin for DVT prophylaxis following right knee revision. A written communication left for Dr. Daniels. Patient verbalized understanding to alert this nurse if pain worsens. Call light in reach, patient denies further assistance.
[2025-07-17 07:54] LABS: Hematocrit 38.2 % (37-47); Hemoglobin 12.6 g/dL (12.0-15.0); Immature Granulocytes Count 0.030 X10^3/uL (0.0-0.0); Mean Corp Hgb Conc 33.0 g/dL (32-36); Mean Corpuscular Volume 94.6 fL (81-99); Mean Platelet Vol. 9.2 fl (6.2-12.0); NRBC Flagged by Analyzer 0 % (0-5); Platelet Count 363 K/mm3 (150-450); RBC Distribution Width CV 12.9 % (11.6-14.6); RBC Distribution Width SD 44.6 fl (35.1-43.9); Red Blood Count 4.04 M/mm3 (4.2-5.4); White Blood Count 4.7 K/mm3 (4.4-11.0)
[2025-07-17 09:08] LABS: Anion Gap 12 (5-15); BUN 51 mg/dL (4-19); BUN/Creat Ratio 50.3 RATIO (10-20); Calcium,Total 9.4 mg/dL (7.6-11.0); Carbon Dioxide 23.2 mmol/L (21.0-32.0); Chloride 102 mmol/L (98-108); Estimated Creatinine Clearance 38.09 ml/min (50-250); Glucose 103 mg/dL (70-99); Potassium 3.7 mmol/L (3.3-5.1)
[2025-07-17 09:35] VITALS: BP 103/51; PULSE 58; RESP 17; TEMP 36.3; O2SAT 94
[2025-07-17] MEDS: Aspirin E.C. 81 MG Tablet PO (09:43)
[2025-07-17] MEDS: Polyethylene Glycol 3350 17 GM PACKET PO (09:44)
[2025-07-17] MEDS: Senna/Docusate Sodium 1 Tablet 2 TABLET PO (09:45)
[2025-07-17] MEDS: Cholecalciferol (VIT D3) 25 MCG TABLET (1,000 UNITS) PO (09:45)
[2025-07-17 11:00] VITALS: BP 103/51; PULSE 58; RESP 17; TEMP 36.3; O2SAT 94
--- NOTE | 2025-07-17 13:59 | MDS.RN ---
Information for the MDS was obtained from review of the clinical record, interview of resident, staff, and direct observation of resident?s care.
== END 2025-07-17 11:35 | disposition home health service (06) | DRG 561 ==
PROVIDERS: Admitting Provider Family Medicine Geriatric Medicine; PCP Family Medicine; Visit Provider Family Medicine Geriatric Medicine
DX: Z47.1 Aftercare following joint replacement surgery (principal); B35.4 Tinea corporis; I10 Essential (primary) hypertension; M17.11 Unilateral primary osteoarthritis, right knee; K21.9 Gastro-esophageal reflux disease without esophagitis; E78.00 Pure hypercholesterolemia, unspecified; E55.9 Vitamin D deficiency, unspecified; Z79.899 Other long term (current) drug therapy; Z96.651 Presence of right artificial knee joint; Z79.82 Long term (current) use of aspirin; Z23 Encounter for immunization
CPT/HCPCS: 36415; 74018; 80048; 81001; 85025; 87086; 87811; 91322; 97110; 97116; 97162; 97166; 97530; 97535

== ENCOUNTER → 2025-09-15 | Outpatient (CLI) | payer MEDICARE, SELFPAY ==
--- NOTE | 2025-09-15 12:52 | CT_ITS ---
PROCEDURE: BRAIN/HEAD WITHOUT CONTRAST 09/15/2025 REASON FOR EXAM: HEAD INJURY, FALL TECHNIQUE: Procedure Code: CTBR Modality: CT Procedure: BRAIN/HEAD WITHOUT CONTRAST Coronal and Sagittal reconstruction series were provided. One or more dose reduction techniques were used (e.g., Automated exposure control, adjustment of the mA and/or kV according to patient size, use of iterative reconstruction technique. RADIATION DOSE SUMMARY: CTDlvol: 47.06 mGy DLP: 890.33 mGycm COMPARISON: Available priors dated 02/07/2024 FINDINGS: Brain: Normal appearance of the miranda-white matter junction. No intracranial mass midline shift or mass effect. Mild chronic microvascular ischemic disease present. CSF Spaces: Normal. Normal appearance of the ventricles. No extra-axial fluid collection. Sinuses/Mastoids: Mastoid air cells and sinuses appear clear. No fracture. Stable appearance of the nasal bone. Bones: No fracture. No destructive process. Soft tissues: Frontal scalp hematoma present. CT/Brain/Head without Contrast IMPRESSION: No acute intracranial abnormality. Mild small-vessel ischemic changes. Frontal scalp hematoma Reading Location: [facility]
--- NOTE | 2025-09-15 13:37 | RAD_ITS ---
PROCEDURE: KNEE 4 OR MORE VIEWS 09/15/2025 REASON FOR EXAM: FALL ON RECENT KNEE REPLAMCENT, RIGHT TECHNIQUE: Procedure Code: RADKN Modality: DX Procedure: KNEE 4 OR MORE VIEWS Laterality: Right COMPARISON: Right knee study dated 07/07/2025 FINDINGS: Bones: The [place] osseous structures appear to be intact without evidence of fracture or dislocation. A large spur is seen off the superior anterior aspect of the patella and a moderate-sized spur is seen off of the inferior anterior aspect of the patella. Joints: The prosthetic right knee device appears to be in satisfactory position without evidence of fracture or loosening. Effusion: There is a suprapatellar bursa effusion. Soft tissues: Soft tissue swelling of the knee is noted along the anterior aspect. 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 RAD/Knee 4 or More Views IMPRESSION: The prosthetic knee device appears to be in satisfactory position without evide nce of fracture or loosening. There are no fractures of the [place] osseous structures. Suprapatellar bursa effusion right knee. Soft tissue swelling anterior aspect right knee. Reading Location: [id number]
== END | disposition home or self-care (01) ==
PROVIDERS: PCP Family Medicine; Referring Provider Family Medicine; Visit Provider Family Medicine
DX: M25.561 Pain in right knee (principal); S09.90XA Unspecified injury of head, initial encounter
CPT/HCPCS: 70450; 73564